=== PATIENT | male | born 1940 | race Caucasian/White ===

== ENCOUNTER 2019-08-06 09:36 | Emergency (ER) | payer MEDICARE, OTHER, SELFPAY ==
[2019-08-06 09:42] VITALS: BP 237/108; PULSE 57; RESP 20; TEMP 36.6; O2SAT 97
--- NOTE | 2019-08-06 09:45 | ED.ABDPAIN ---
HPI - Abdominal Pain General Chief Complaint: Abdominal Pain Stated Complaint: Constipation X7 Days Time Seen by Provider: 08/06/19 09:40 Source: patient Mode of arrival: Ambulatory Limitations: no limitations History of Present Illness HPI narrative: 79-year-old male Nonsmoker with history of hypertension presents with the chief complaint of little to no bowel movements for the past week or so. He has no symptoms whatsoever. He denies nausea, vomiting or diarrhea. He denies any abdominal pain, change in diet or change in medications. He denies travel Or exposure to ill persons. He had been trying to use MiraLax over the past few days which has been unsuccessful. He spoke with his primary care provider's office and was sent here for evaluation. MD complaint: other Onset (ago): day(s) Associated symptoms: constipation Treatments prior to arrival: other Related Data Previous Rx's Medication Instructions Recorded cephalexin [Keflex] 500 mg PO Q6H 7 Days #0 cap 08/04/16 Allergies Allergy/AdvReac Type Severity Reaction Status Date / Time No Known Allergies Allergy Uncoded 08/27/17 12:07 Review of Systems Constitutional Constitutional: Denies chills, Denies fatigue, Denies fever(s), Denies frequent falls, Denies lethargy and Denies weakness Eyes Eyes: Denies change in vision, Denies eye discharge, Denies irritation and Denies loss of vision ENT Ears, Nose, Mouth, and Throat: Denies change in voice, Denies dizziness, Denies neck pain, Denies sore throat and Denies throat swelling Cardiovascular Cardiovascular: Denies chest pain, Denies irregular heart rhythm, Denies lightheadedness, Denies palpitations, Denies dyspnea, Denies dyspnea on exertion and Denies orthopnea Respiratory Respiratory: Denies cough, Denies dyspnea, Denies dyspnea on exertion and Denies wheezing Gastrointestinal Gastrointestinal: Denies abdominal pain, Denies change in bowel habits, Reports constipation, Denies diarrhea, Denies nausea and Denies vomiting Genitourinary Genitourinary: Denies hematuria, Denies flank pain, Denies urinary incontinence and Denies urinary urgency Musculoskeletal Musculoskeletal: Denies back pain, Denies muscle weakness, Denies neck pain, Denies numbness and Denies tingling Integumentary/Breasts Skin/Breast: Denies pruritus, Denies erythema, Denies rash and Denies wounds Neurologic Neurologic: Denies behavioral changes, Denies confusion, Denies dizziness, Denies frequent falls, Denies loss of vision, Denies numbness, Denies tingling and Denies weakness Psychiatric Psychiatric: Denies anxiety, Denies behavioral changes, Denies confusion, Denies depression, Denies homicidal ideation and Denies suicidal ideation Endocrine Endocrine: Denies fatigue, Denies flushing and Denies palpitations Hematologic/Lymphatic Hematologic/Lymphatic: Denies easy bruising Allergic/Immunologic Allergic/Immunologic: Denies urticaria, Denies throat swelling and Denies wheezing Patient History Social History Smoking Status: Never smoker Exam Narrative Exam Narrative: Initial Vital Signs Initial Vital Signs: Vital Signs Temperature 97.9 F 08/06/19 09:42 Pulse Rate 57 L 08/06/19 09:42 Respiratory Rate 20 08/06/19 09:42 Blood Pressure 237/108 H 08/06/19 09:42 Pulse Oximetry 97 08/06/19 09:42 Course Orders Ordered: ED Orders 08/06/19 09:46 XR acute abdomen series Stat Vital Signs Vital signs: Vital Signs - 8 hr 08/06/19 09:42 08/06/19 10:50 Temperature 97.9 F Pulse Rate 57 L 48 L Respiratory Rate 20 18 Blood Pressure 237/108 H 177/80 H Pulse Oximetry 97 97 Discharge Plan Departure Patient Disposition: Home Clinical Impression: Constipation Qualifiers: Constipation type: unspecified constipation type Qualified Code(s): K59.00 - Constipation, unspecified Discharge Date/Time: 08/06/19 10:50 Instructions: DI for Constipation Activity Restrictions/Additional Instructions: *You have been diagnosed with [ abdominal pain due to constipation ] *What to do: *Take over the counter medications as directed: 1. Metamucil - bulk forming laxative adds fiber 2. Colace - softens your stool 3. Dulcolax Suppository - stimulates your bowels from the bottom *Follow up with your primary care provider in 2-3 days, call for appointment *Return to ER if you should have any new, worsening or concerning symptoms *Drink plenty of water and eat foods high in fiber *Try to be as active as possible, consider walking your dog daily Prescriptions: No Action cephalexin [Keflex] 500 MG capsule 500 mg PO Q6H 7 Days Qty: 0 RF: 0 Referrals: Kevin Smith MD [Primary Care Provider] - ED Sign-out Cosign ED Attending Cosignature Attestation: I was immediately available in the department for consultation. This documentation has been reviewed and I agree with assessment and plan. Supervised by Jase Dow DO
--- NOTE | 2019-08-06 09:46 | DI.RAD.S_ITS ---
PROCEDURE: XR ACUTE ABDOMEN SERIES INDICATIONS: decreased BM x7 days, sent by PCP TECHNIQUE: One view chest and two views of the abdomen were acquired. COMPARISON: None. FINDINGS: Surgical changes and devices: None. Chest: Lungs are clear. Heart size is normal. No pleural effusions. No pneumoperitoneum. Abdomen: Bowel gas pattern is nonobstructive. Fecal stasis throughout the colon is seen. No gross free air.. No suspicious calcifications. Visualized solid organ contours appear normal. Bones: No suspicious bony lesions. IMPRESSION: Mild to moderate constipation. No bowel obstruction no gross free air. No acute cardiopulmonary pathology. Dictated by: Kishore Sue M.D. on 08/06/2019 at 10:08 Approved by: Kishore Sue M.D. on 08/06/2019 at 10:11
[2019-08-06 10:50] VITALS: BP 177/80; PULSE 48; RESP 18; O2SAT 97
== END 2019-08-06 10:50 | disposition home or self-care (01) ==
PROVIDERS: Emergency Provider Emergency Medicine; Family Provider Family Medicine; PCP Family Medicine; Referring Provider Family Medicine
DX: K59.00 Constipation, unspecified (principal); R10.9 Unspecified abdominal pain; I10 Essential (primary) hypertension
CPT/HCPCS: 74022; 99283

== ENCOUNTER → 2021-02-07 10:13 | Outpatient (CLI) | payer MEDICARE, OTHER, SELFPAY ==
--- NOTE | 2021-02-07 | DI.RAD.S_ITS ---
PROCEDURE: XR HAND LT MIN 3V INDICATIONS: LEFT 5TH FINGER SWELLING TECHNIQUE: 3 views of the hand(s) acquired. COMPARISON: None. FINDINGS: Bones: No acute fractures or dislocations. 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 There are suggestion of bony erosion involving 2nd through 5th DIP joints and 3rd through 5th PIP joints most prominent involving ulnar aspect of 5th DIP joint. Carpal bones are normally aligned. No suspicious bony lesions. Soft tissues: Significant soft tissue swelling over medial aspect of 5th DIP joint is seen, no gross abnormal soft tissue calcifications. 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 No acute fracture or dislocation. Dictated by: Kishore Sue M.D. on 02/07/2021 at 11:34 Approved by: Kishore Sue M.D. on 02/07/2021 at 11:36
== END ==
PROVIDERS: PCP Family Medicine; Referring Provider Family Medicine; Visit Provider Family Medicine
DX: M79.89 Other specified soft tissue disorders (principal)
CPT/HCPCS: 73130

== ENCOUNTER 2022-06-19 10:52 | Emergency (ER) | payer MEDICARE, OTHER, SELFPAY ==
[2022-06-19 11:20] VITALS: TEMP 36.1; BMI 27.7
[2022-06-19 11:26] VITALS: BP 158/72; PULSE 56; RESP 19; TEMP 36.1; O2SAT 97; BMI 27.7
--- NOTE | 2022-06-19 11:36 | ED_ITS ---
HPI - Abdominal Pain General Chief Complaint: Abdominal Pain Stated Complaint: per pt possibe hernia, lower abd pain Time Seen by Provider: 06/19/22 11:36 Source: patient Mode of arrival: Family Vehicle History of Present Illness HPI narrative: The patient has not felt well for about 2 weeks. He has no chronic GI issues. His appetite is okay. He is no nausea vomiting. He has occasional loose BMs. He is no hematochezia. He has central, suprapubic discomfort. The pain does not radiate to his back. He has no nausea vomiting, no upper abdominal pain. He is no scrotal pain. He has no dysuria. He is urinary hesitancy. He denies a history of prostate disease. He has no fever chills. He is no rashes. Related Data Previous Rx's Medication Instructions Recorded cephalexin 500 mg capsule (Keflex) 500 mg PO Q6H 7 days #0 caps 08/04/16 ciprofloxacin HCl 250 mg tablet 250 mg PO BID #42 tabs 06/19/22 (Cipro) Allergies Allergy/AdvReac Type Severity Reaction Status Date / Time No Known Drug Allergies Allergy Verified 06/19/22 12:11 Review of Systems Constitutional Constitutional: Denies body ache(s), Denies chills, Denies fatigue, Denies fever(s) and Denies poor appetite ENT Ears, Nose, Mouth, and Throat: Denies vertigo and Denies dizziness Cardiovascular Cardiovascular: Denies chest pain, Denies rapid heart rate, Denies pedal edema and Denies dyspnea Respiratory Respiratory: Denies chest congestion, Denies cough and Denies dyspnea Gastrointestinal Gastrointestinal: Reports as per HPI Genitourinary Genitourinary: Reports as per HPI Musculoskeletal Musculoskeletal: Denies back pain Integumentary/Breasts Skin/Breast: Denies lesions and Denies rash Neurologic Neurologic: Denies confusion, Denies vertigo and Denies dizziness Psychiatric Psychiatric: Denies anxiety, Denies confusion, Denies hopelessness and Denies panic attacks Endocrine Endocrine: Denies fatigue Hematologic/Lymphatic On Anticoagulants: No Patient History Social History Smoking Status: Never smoker Smoking Status: Never smoker alcohol intake frequency: a few times a week Alcohol type: wine Substance Use Type: does not use Exam Initial Vital Signs Initial Vital Signs: Vital Signs Temperature 96.9 F L 02/01/23 11:20 Const General: cooperative, comfortable, well developed and well groomed [facility] Head: normocephalic and atraumatic Neck Neck: No JVD Resp Effort & Inspection: normal respiratory effort Auscultation: clear to auscultation bilaterally Cardio Rate: regular rate Rhythm: regular rhythm Heart Sounds: S1 normal, S2 normal, no click, no gallops and no murmurs GI Other: Mild suprapubic discomfort with palpation. No masses. No distension. No guarding or rebound. Bowel sounds are normal. Normal rectal tone. 3+ BPH with diffuse tenderness to the prostate. Other: No scrotal tenderness. Back/Spine/Pelvis Back: No CVA tenderness Course Course Course Narrative: Cipro was initiated in the ER for prostatitis. He is discharged on Cipro 250 b.i.d. for 3 weeks. Follow-up with PCM in perhaps urology consultation is advised. Orders Ordered: ED Orders 06/19/22 11:29 Complete Blood Count AUTO DIFF Stat Comprehensive Metabolic Panel Stat Lipase Stat 06/19/22 12:00 Urine Culture Stat Urine Microscopic Stat Discontinued Medications Ciprofloxacin (Ciprofloxacin 250 Mg Tablet) 250 mg PO NOW ONE Stop: 06/19/22 12:01 Last Admin: 06/19/22 12:10 Dose: 250 mg Documented By: NANY Vital Signs Vital signs: Vital Signs - 8 hr 06/19/22 11:20 06/19/22 11:26 06/19/22 12:11 Temperature 96.9 F L 96.9 F L Pulse Rate 56 L 52 L Respiratory Rate 19 Blood Pressure 158/72 H 155/70 H Pulse Oximetry 97 96 Oxygen Delivery Method Room Air Room Air MDM - Abdominal Pain Lab Data 06/19/22 11:29 06/19/22 11:29 Labs: Lab Results 06/19/22 06/19/22 06/19/22 Range/Units 11:29 11:29 12:00 WBC 19.9 H (4.5-11.0) X10^3/uL RBC 4.78 (4.5-5.9) X10^6/uL Hgb 13.9 (13.5-17.5) g/dL Hct 41.4 (41-53) % MCV 86.6 (80-100) fL MCH 29.1 (26-34) PG MCHC 33.6 (30-36) % RDW 14.5 (11.6-14.8) % Plt Count 282 (150-400) X10^3/uL Neut % (Auto) 83.8 H (50-75) % Lymph % (Auto) 5.9 L (25-40) % [place] % (Auto) 9.6 (3-14) % Eos % (Auto) 0.2 L (2-4) % Baso % (Auto) 0.5 (0-2) % Neut # (Auto) 64960 H (5000-1294) /uL Lymph # (Auto) 1200 (5081-4503) /uL [place] # (Auto) 1900 H (0-900) /uL Eos # (Auto) 0 (0-450) /uL Baso # (Auto) 100 (0-100) /uL Sodium 135 L (137-145) mmol/L Potassium 4.5 (3.4-5.1) mmol/L Chloride 101 (98-107) mmol/L Carbon Dioxide 24 (22-32) mmol/L BUN 30 H (9-20) mg/dL Creatinine 1.17 (0.66-1.25) mg/dL Estimated GFR > 60 (>60) mL/min BUN/Creatinine Ratio 25.6 H (6-22) Glucose 114 H (80-110) mg/dL Calcium 8.5 (8.4-10.2) mg/dL Total Bilirubin 1.8 H (0.2-1.3) mg/dL AST 27 (17-59) IU/L ALT 30 (<50) IU/L Alkaline Phosphatase 105 (38-126) U/L Total Protein 7.4 (6.3-8.2) g/dL Albumin 4.3 (3.5-5.0) g/dL Globulin 3.1 (1.7-4.1) g/dL Albumin/Globulin Ratio 1.4 (1.0-2.8) Lipase 40 (23-300) U/L Urine RBC None seen (0-5/HPF) Urine WBC 1-5/hpf (0-5/HPF) Ur Squamous Epith Cells 1-5 /hpf (0-5/HPF) Urine Bacteria Few (2-10) H (None) Urine Mucus 1+ H (Negative) Ur Culture Indicated? Specimen cultured Point of care testing: Urine Dip Bedside Urine Glucose Negative Bedside Urine Bilirubin - Negative Bedside Urine Ketone - Negative Urine Specific [place] 1.020 Bedside Urine Occult Blood +/- Bedside Urine pH 6.0 Bedside Urine Protein + 30 Bedside Urine Urobilinogen +/- 1mg Bedside Urine Nitrite - Negative Bedside Urine Leukocytes - Negative Esterase Discharge Plan Departure Patient Disposition: Home Clinical Impression: Acute prostatitis Instructions: DI for Acute Prostatitis Activity Restrictions/Additional Instructions: Drink plenty of water at all times. Cipro 250 mg 2 times daily as prescribed. Follow-up with your doctor in 3 weeks for recheck. Return here if you develop fever, or worsening symptoms. Prescriptions: New ciprofloxacin HCl [Cipro] 250 mg tablet 250 mg PO BID Qty: 42 0RF No Action cephalexin [Keflex] 500 MG capsule 500 mg PO Q6H 7 Days Qty: 0 0RF Referrals: Uvaldo Katz MD [Primary Care Provider] - Stand Alone Forms: Patient Portal/API
[2022-06-19 11:38] LABS: Add Manual Diff / Slide Review NO; Basophils Absolute Auto 100 /uL (0-100); Basophils Percent Auto 0.5 % (0-2); Eosinophils Absolute Auto 0 /uL (0-450); Eosinophils Percent Auto 0.2 % (2-4); Hematocrit 41.4 % (41-53); Hemoglobin 13.9 g/dL (13.5-17.5); Lymphocytes Absolute Auto 1200 /uL (1100-4500); Lymphocytes Percent Auto 5.9 % (25-40); Mean Corpuscular HGB Conc 33.6 % (30-36); Mean Corpuscular Hemoglobin 29.1 PG (26-34); Mean Corpuscular Volume 86.6 fL (80-100); Monocytes Absolute Auto 1900 /uL (0-900); Monocytes Percent Auto 9.6 % (3-14); Neutrophils Absolute Auto 16700 /uL (1500-7000); Neutrophils Percent Auto 83.8 % (50-75); Platelet Count 282 X10^3/uL (150-400); Red Blood Cell Count 4.78 X10^6/uL (4.5-5.9); Red Cell Distribution Width 14.5 % (11.6-14.8); White Blood Cell Count 19.9 X10^3/uL (4.5-11.0)
[2022-06-19 11:46] LABS: Alanine Aminotransferase 30 IU/L (<50); Albumin 4.3 g/dL (3.5-5.0); Albumin Globulin Ratio 1.4 (1.0-2.8); Alkaline Phosphatase 105 U/L (38-126); Aspartate Aminotransferase 27 IU/L (17-59); BUN Creatinine Ratio 25.6 (6-22); Bilirubin Total 1.8 mg/dL (0.2-1.3); Blood Urea Nitrogen 30 mg/dL (9-20); Calcium 8.5 mg/dL (8.4-10.2); Carbon Dioxide 24 mmol/L (22-32); Chloride 101 mmol/L (98-107); Estimated Glomerular Filt Rate > 60 mL/min (>60); Globulin 3.1 g/dL (1.7-4.1); Glucose 114 mg/dL (80-110); HEMOLYSIS < 15 (0-50); Lipase 40 U/L (23-300); Potassium 4.5 mmol/L (3.4-5.1); Sodium 135 mmol/L (137-145); Total Protein 7.4 g/dL (6.3-8.2)
[2022-06-19] MEDS: CIPROFLOXACIN 250 MG TABLET PO (12:10)
[2022-06-19 12:11] VITALS: BP 155/70; PULSE 52; O2SAT 96
[2022-06-19 12:15] LABS: Bacteria Urine Few (2-10); Culture Indicated Urine Specimen Cultured; Mucus Urine 1+ (Negative); RBC Urine None Seen (0-5/HPF); Squamous Epithelial Cell Urine 1-5 /HPF (0-5/HPF); WBC Urine 1-5/HPF (0-5/HPF)
== END 2022-06-19 12:55 | disposition home or self-care (01) ==
PROVIDERS: Emergency Provider Emergency Medicine; PCP Family Medicine
DX: N41.0 Acute prostatitis (principal)
CPT/HCPCS: 80053; 81003; 81015; 83690; 85025; 87086; 99283

== ENCOUNTER → 2022-07-29 14:02 | Outpatient (CLI) | payer MEDICARE, OTHER, SELFPAY ==
--- NOTE | 2022-07-29 | DI.US.S_ITS ---
PROCEDURE: US ABDOMEN LIMITED INDICATIONS: UNSPECIFIED ABDOMINAL HERNIA WITHOUT OBSTRUCTION OR GANGRENE TECHNIQUE: Real-time focused scanning was performed of the abdomen, with image documentation. COMPARISON: None. FINDINGS: Possible fat and bowel containing right inguinal hernia, with possible neck measuring 2.3 cm. IMPRESSION: Suspected fat and bowel containing right inguinal hernia. Correlation with physical examination may be helpful. Dictated by: Chandrakant Duval M.D. on 07/29/2022 at 17:45 Approved by: Chandrakant Duval M.D. on 07/29/2022 at 17:49
== END ==
PROVIDERS: PCP Family Medicine; Referring Provider Family Medicine; Visit Provider Family Medicine
DX: K46.9 Unspecified abdominal hernia without obstruction or gangrene (principal)
CPT/HCPCS: 76705

== ENCOUNTER 2022-08-20 09:40 | Day surgery (SDC) | payer MEDICARE, OTHER, SELFPAY ==
[2022-08-15 08:03] VITALS: BMI 26.4
[2022-08-20] VITALS (8 sets, daily range): BP systolic 159–189; BP diastolic 82–99; PULSE 69–169; RESP 10–20; TEMP 36.3–36.7; O2SAT 96–100; BMI 26.4
[2022-08-20] MEDS: LACTATED RINGERS 1,000 ML 42 ML IV ×2 (10:18→13:00)
--- NOTE | 2022-08-20 11:51 | PM.PREOP ---
Pre-operative Note Interval Note History & Physical reviewed/Exam performed by Physician: Yes Changes to H&P: No
[2022-08-20] MEDS: CEFAZOLIN 2 GM/100 ML PREMIX 100 ML IV (12:10)
--- NOTE | 2022-08-20 12:28 | SUR.OPER ---
Supine on padded OR bed, head on pillow, arms secured on padded arm boards at <90 degrees abduction, legs uncrossed, safety belt at thigh, tape over blanket over lower legs.
[2022-08-20] MEDS: BUPIVACAINE 0.5% (PF) 30 ML, EPINEPHrine 0.15 MG INJ (12:32)
--- NOTE | 2022-08-20 13:48 | PM.OP.1 ---
Operative Date/Time/Diagnoses Date of procedure: 08/20/22 Time of procedure: 13:48 Pre-op diagnosis: Bilateral inguinal hernia, left side is more symptomatic and based on discussion with Dr. Carver in office election staged for open surgery starting with left side was planned based on anesthetic concerns. Post-op diagnosis: same Procedure & Clinicians Procedure: Left open inguinal hernia repair Same procedure as scheduled: Yes Indications: Symptomatic left inguinal hernia Surgeon: Sarai Rodriguez Click Yes if Unassisted: Yes Anesthesia Type: General Operative Notes Findings: Pretty large indirect hernia sac Procedure in detail: Patient was taken to the operating room and placed supine on the operating room table. Bilateral SCDs were in place. Preoperative antibiotics administered. A time-out was performed. General endotracheal anesthesia was induced. The left inguinal area was marked in the preop area and the chad was checked the left area was prepped and draped in the usual fashion. Local anesthetic was infused to create an iliohypogastric block and an incision was made overlying the inguinal canal with 10. Blade scalpel after infusing additional local anesthetic in the area. The incision was carried down through the subcutaneous tissues using electrocautery. I encountered a bundle of exterior epigastric vessels which I tied with a 3-0 Vicryl tie and ligated. I then continued the incision with electrocautery down to the anterior oblique fascia. The fascia was grasped with hemostats elevated and entered sharply with Metzenbaum scissors. The scissors were used to clear the posterior tissue away and then open the muscles fascia to the external ring. The wheat [place] retractor was then placed and the cord structures were isolated with a Clif[place] drain. I then began to dissect the hernia sac from the cord structures the hernia sac was returned to the abdomen a few stay sutures of 2-0 Vicryl were used to gently close the internal ring and keep the hernia sac within the abdomen while the mesh was placed. The mesh was secured to Blanco's ligament and a running 3-0 Prolene was used along the inguinal ligament to secure the mesh. A slit was cut and the new internal ring was created around the cord the superior portion of the mesh was secured with interrupted 3-0 Vicryl sutures which were tied down very loosely through the muscle wall just to keep the mesh flat. The external oblique fascia was then closed with a running 2-0 Vicryl suture. The Chari's fascia was closed with interrupted 3-0 Vicryl. A few subcutaneous interrupted 3-0 Vicryl sutures were placed and the skin was closed with a running 4-0 Monocryl. It was dressed with Steri-Strips. Patient tolerated the procedure well and went in good condition to the postoperative care unit the remainder of the local anesthetic was infused around the area at the cessation of the case. Complications: none Post-operative Condition: stable Disposition: PACU
== END 2022-08-20 14:55 | disposition home or self-care (01) ==
PROVIDERS: PCP Family Medicine; Referring Provider Surgery; Visit Provider Surgery
PROC: (CPT 49505; principal; 2022-08-20 11:15)
DX: K40.90 Unilateral inguinal hernia, without obstruction or gangrene, not specified as recurrent (principal); K59.00 Constipation, unspecified
CPT/HCPCS: 49505; J0171; J0690; J1100; J2405; J2704; J3010

== ENCOUNTER 2022-11-22 14:13 | Inpatient (IN) | payer MEDICARE, OTHER, SELFPAY ==
[2022-11-22] VITALS (16 sets, daily range): BP systolic 104–140; BP diastolic 55–68; PULSE 60–70; RESP 16–45; TEMP 36.4–40.6; O2SAT 93–99; BMI 25.7
--- NOTE | 2022-11-22 14:38 | DI.RAD.S_ITS ---
PROCEDURE: XR CHEST 1V INDICATIONS: suspected sepsis TECHNIQUE: One view of the chest was acquired. COMPARISON: None. FINDINGS: Surgical changes and devices: None. Lungs and pleura: Lungs are clear. No pleural effusions or pneumothorax. Mediastinum: Mediastinal contours appear normal. Heart size is normal. Bones and chest wall: No suspicious bony lesions. Overlying soft tissues appear unremarkable. IMPRESSION: No acute cardiopulmonary disease. Dictated by: Martine Cintron M.D. on 11/22/2022 at 16:39 Approved by: Martine Cintron M.D. on 11/22/2022 at 16:39
--- NOTE | 2022-11-22 14:54 | ED.GENADULT ---
HPI - General Adult General Chief complaint: Fever Stated complaint: fever/High BP Time Seen by Provider: 11/22/22 14:25 Source: patient Mode of arrival: Ambulatory History of Present Illness HPI narrative: 82-year-old male nonsmoker presents with his in the chief complaint of increased lethargy and weakness over the past day or so. He normally self catheterization and lasted so last night. He is had fever and shaking chills. He is dizzy upon standing. He denies any chest pain or shortness of breath. He denies any vomiting but has been nauseated. He is generally weak. He normally can get around without difficulty in fact yesterday worked most of the day out in the [employer]. Over the night and into today he is had fever, shaking chills and profound weakness. Related Data Home Medications Medication Instructions Recorded Confirmed allopurinol 100 mg tablet 100 mg PO DAILY 07/31/22 11/22/22 atorvastatin 20 mg tablet 20 mg PO DAILY 07/31/22 11/22/22 metoprolol succinate 50 mg 50 mg PO DAILY 07/31/22 11/22/22 tablet,extended release 24 hr Previous Rx's Medication Instructions Recorded psyllium husk (with sugar) 3.4 1 tbsp PO BID #822 grams 08/20/22 gram/7 gram oral powder (Fiber (psyllium husk-sugar)) Allergies Allergy/AdvReac Type Severity Reaction Status Date / Time No Known Drug Allergies Allergy Verified 10/08/22 10:33 Review of Systems Review of Systems Narrative: GENERAL: See HPI HEENT: Denies sinus pain, ear pain, sore throat, difficulty swallowing, dizziness. RESPIRATORY: Denies dyspnea, cough, wheezing, hemoptysis, sputum. CARDIOVASCULAR: Denies chest pain, palpitations, orthopnea, edema, GASTROINTESTINAL: Denies nausea, vomiting, abdominal pain, diarrhea, constipation, melena. : See HPI MUSCULOSKELETAL: denies weakness, joint pain, or bony pain SKIN: Denies rash, skin lesions, or other NEUROLOGIC: Denies weakness, headache, numbness, change in speech, confusion, seizures, incoordination. PSYCHIATRIC: No concerning psychosocial issues. 12 point review of systems is negative except for those stated above Patient History Medical History Bowel obstruction HTN (hypertension) Surgical History History of skin surgery (03/27/19) History of skin surgery (04/13/19) Social History marital status: household members: spouse lives independently: Yes occupational status: previously employed Smoking Status: Never smoker alcohol intake: current substance use type: does not use Smoking Status: Never smoker alcohol intake frequency: a few times a week Alcohol type: wine Substance Use Type: does not use Exam Narrative Exam Narrative: GENERAL: [82] year old patient appears stated age. Well-developed patient, in mild distress. Generalized weakness, require some assistance getting out of the truck into the wheelchair HEAD: Atraumatic. Normocephalic. EYES: Pupils equal round and reactive. Extraocular motions intact. No scleral icterus. No injection or drainage. ENT: Nose without bleeding, purulent drainage. Throat without erythema, tonsillar hypertrophy or exudate. Airway patent. NECK: Trachea midline. Non tender CARDIOVASCULAR: Regular rate and rhythm without murmurs, gallops, or rubs. RESPIRATORY: Clear to auscultation. Breath sounds equal bilaterally. No wheezes, rales, or rhonchi. GASTROINTESTINAL: Abdomen soft, non-tender, nondistended. EXTREMITIES: No edema or joint tenderness. BACK: Nontender without deformity or crepitance. No flank tenderness. NEURO: AOx3. SKIN: No rash or erythema of visible areas Initial Vital Signs Initial Vital Signs: Vital Signs Temperature 100.9 F H 11/22/22 14:25 Pulse Rate 64 11/22/22 14:25 Respiratory Rate 16 11/22/22 14:25 Blood Pressure 104/57 L 11/22/22 14:25 Pulse Oximetry 95 11/22/22 14:25 Oxygen Delivery Method Room Air 11/22/22 14:25 Course Orders Ordered: ED Orders 11/22/22 14:38 XR chest 1V Stat 11/22/22 14:50 Complete Blood Count AUTO DIFF Stat Comprehensive Metabolic Panel Stat Lactate (Lactic Acid) Stat Lipase Stat PTT Partial Thromboplastin Chau Stat Procalcitonin Stat Prothrombin Time INR Stat 11/22/22 15:00 Blood Culture Stat 11/22/22 15:30 Urinalysis and Microscopic Stat Urine Culture Stat 11/22/22 15:49 Respiratory Panel (Film Array) Stat 11/22/22 15:50 EKG-12 Lead Stat Acetaminophen (Acetaminophen 325 Mg Tablet) 650 mg PO Q6H [facility] Last Admin: 11/22/22 19:37 Dose: 650 mg Documented By: SHERRI Hydrocodone Bitart/Acetaminophen (Hydrocodone/Acet 5/325 Tablet) 1 tab PO Q4H PRN PRN Reason: Pain, Moderate (4-6) Al Hydrox/Mg Hydrox/Simethicone (Mag Hydrox/Alum/Simeth 30 Ml Udc) 30 ml PO Q6HR PRN PRN Reason: Dyspepsia Allopurinol (Allopurinol 100 Mg Tablet) 100 mg PO DAILY [facility] Atorvastatin Calcium (Atorvastatin 20 Mg Tablet) 20 mg PO DAILY [facility] Enoxaparin Sodium (Enoxaparin 40 Mg/0.4 Ml Syringe) 40 mg SUBCUT DAILY [facility] Sodium Chloride (Normal Saline 0.9%) 1,000 mls @ 125 mls/hr IV CONT [facility] Last Admin: 11/22/22 19:37 Dose: 125 mls/hr Documented By: SHERRI Ceftriaxone Sodium 2,000 mg/ (Sodium Chloride) 100 mls @ 200 mls/hr IV Q24H [facility] Last Admin: 11/22/22 19:22 Dose: Not Given Documented By: SHERRI Magnesium Hydroxide (Magnesium Hydroxide 30 Ml Udc) 30 ml PO DAILY PRN PRN Reason: Constipation Naloxone HCl (Naloxone 0.4 Mg/Ml Vial) 0.2 mg IV Q2MIN PRN PRN Reason: Opiate Reversal Ondansetron HCl (Ondansetron 4 Mg/2 Ml Inj) 4 mg IV Q8HR PRN PRN Reason: Nausea And Vomiting Psyllium Hydrophilic Mucilloid (Psyllium Husk 1 Packet) 1 packet PO BID [facility] Discontinued Medications Acetaminophen (Acetaminophen 650 Mg Supp) 650 mg FL NOW ONE Stop: 11/22/22 14:34 Last Admin: 11/22/22 14:37 Dose: Not Given Documented By: URBANO Acetaminophen (Acetaminophen 325 Mg Tablet) 975 mg PO NOW ONE Stop: 11/22/22 14:34 Last Admin: 11/22/22 14:37 Dose: Not Given Documented By: URBANO Sodium Chloride (Normal Saline 0.9%) 1,000 mls @ 1,000 mls/hr IV BOLUS ONE Stop: 11/22/22 15:37 Last Infusion: 11/22/22 16:21 Dose: 0 mls/hr Documented By: Admin: 11/22/22 15:12 Dose: 1,000 mls/hr Documented By: RAFA Sodium Chloride (Normal Saline 0.9%) 2,585.49 mls @ 861.83 mls/hr 30 ml/kg infuse over 3 hr (2585.49 ml) IV NOW ONE Stop: 11/22/22 18:22 Last Admin: 11/22/22 16:13 Dose: 861.83 mls/hr Documented By: Ceftriaxone Sodium 2,000 mg/ (Sodium Chloride) 100 mls @ 200 mls/hr IV NOW ONE Stop: 11/22/22 15:24 Last Infusion: 11/22/22 16:58 Dose: 0 mls/hr Documented By: Admin: 11/22/22 16:13 Dose: 200 mls/hr Documented By: Ibuprofen (Ibuprofen 400 Mg Tablet) 800 mg PO NOW ONE Stop: 11/22/22 14:34 Last Admin: 11/22/22 14:37 Dose: Not Given Documented By: URBANO Ondansetron HCl (Ondansetron 4 Mg/2 Ml Inj) 4 mg IV NOW PRN PRN Reason: Nausea And Vomiting Ondansetron HCl (Ondansetron 4 Mg Odt) 4 mg SL NOW PRN PRN Reason: Nausea And Vomiting Vital Signs Vital signs: Vital Signs - 8 hr 11/22/22 14:25 11/22/22 14:42 11/22/22 14:42 Temperature 100.9 F H Pulse Rate 64 70 Respiratory Rate 16 21 Blood Pressure 104/57 L 140/68 Pulse Oximetry 95 95 Oxygen Delivery Method Room Air 11/22/22 15:00 11/22/22 15:00 11/22/22 15:30 Temperature Pulse Rate 65 Respiratory Rate 32 H Blood Pressure 117/63 112/68 Pulse Oximetry 96 Oxygen Delivery Method 11/22/22 15:30 11/22/22 15:54 11/22/22 16:00 Temperature 101.5 F H Pulse Rate 63 Respiratory Rate 22 Blood Pressure 125/57 L Pulse Oximetry 93 Oxygen Delivery Method 11/22/22 16:00 Temperature 101.1 F H Pulse Rate 67 Respiratory Rate 19 Blood Pressure Pulse Oximetry 97 Oxygen Delivery Method Medical Decision Making Lab Data 11/22/22 14:50 11/22/22 14:50 Labs: Lab Results 11/22/22 11/22/22 11/22/22 Range/Units 14:50 14:50 14:50 WBC 16.4 H (4.5-11.0) X10^3/uL RBC 4.32 L (4.5-5.9) X10^6/uL Hgb 12.5 L (13.5-17.5) g/dL Hct 37.3 L (41-53) % MCV 86.4 (80-100) fL MCH 28.9 (26-34) PG MCHC 33.4 (30-36) % RDW 15.0 H (11.6-14.8) % Plt Count 191 (150-400) X10^3/uL Neut % (Auto) 94.3 H (50-75) % Lymph % (Auto) 1.4 L (25-40) % [place] % (Auto) 3.9 (3-14) % Eos % (Auto) 0.0 L (2-4) % Baso % (Auto) 0.4 (0-2) % Neut # (Auto) 95073 H (8045-1456) /uL Lymph # (Auto) 200 L (3361-8422) /uL [place] # (Auto) 600 (0-900) /uL Eos # (Auto) 0 (0-450) /uL Baso # (Auto) 100 (0-100) /uL PT 13.1 H (10.1-12.7) SECONDS INR 1.1 (0.9-1.3) APTT 26 (26-36) SECONDS Sodium 136 L (137-145) mmol/L Potassium 3.4 (3.4-5.1) mmol/L Chloride 104 (98-107) mmol/L Carbon Dioxide 22 (22-32) mmol/L BUN 33 H (9-20) mg/dL Creatinine 1.17 (0.66-1.25) mg/dL Estimated GFR > 60 (>60) mL/min BUN/Creatinine Ratio 28.2 H (6-22) Glucose 128 H (80-110) mg/dL Lactate (0.7-2.1) mmol/L Calcium 8.3 L (8.4-10.2) mg/dL Total Bilirubin 1.1 (0.2-1.3) mg/dL AST 29 (17-59) IU/L ALT 28 (<50) IU/L Alkaline Phosphatase 116 (38-126) U/L Total Protein 6.6 (6.3-8.2) g/dL Albumin 3.8 (3.5-5.0) g/dL Globulin 2.8 (1.7-4.1) g/dL Albumin/Globulin Ratio 1.4 (1.0-2.8) Lipase 95 (23-300) U/L Procalcitonin 4.00 H (<0.5) ng/mL Urine Color Urine Appearance Urine pH (4.5-8.0) Ur Specific [place] (1.000-1.035) Urine Protein (Negative) Urine Glucose (UA) (Negative) g/dL Urine Ketones (NEGATIVE) Urine Occult Blood (Negative) Urine Nitrate (Negative) Urine Bilirubin (NEGATIVE) Urine Urobilinogen (0.2) E.U./dL Ur Leukocyte Esterase (NEGATIVE) Urine RBC (0-5/HPF) Urine WBC (0-5/HPF) Ur Squamous Epith Cells (0-5/HPF) Urine Bacteria (None) Ur Culture Indicated? Chlamy pneumoniae PCR (Not Detect) Adenovirus (PCR) (Not Detect) B. pertussis DNA (PCR) (Not Detecte) B.parapertussis DNA PCR (Not Detecte) Coronavirus OC43 (PCR) (Not Detect) Coronavirus HKU1 (PCR) (Not Detect) Coronavirus 229E (PCR) (Not Detect) SARS-CoV-2 (PCR) (Not Detecte) Coronavirus NL63 (PCR) (Not Detect) Human Metapneumovir PCR (Not Detect) Influenza Type A (PCR) (Not Detect) Influenza Type B (PCR) (Not Detect) M. pneumoniae (PCR) (Not Detect) Parainfluenza 1 (PCR) (Not Detect) Parainfluenza 2 (PCR) (Not Detect) Parainfluenza 3 (PCR) (Not Detect) Parainfluenza 4 (PCR) (Not Detect) RSV (PCR) (Not Detect) Entero/Rhino (PCR) (Not Detect) 11/22/22 11/22/22 11/22/22 Range/Units 14:50 15:30 15:49 WBC (4.5-11.0) X10^3/uL RBC (4.5-5.9) X10^6/uL Hgb (13.5-17.5) g/dL Hct (41-53) % MCV (80-100) fL MCH (26-34) PG MCHC (30-36) % RDW (11.6-14.8) % Plt Count (150-400) X10^3/uL Neut % (Auto) (50-75) % Lymph % (Auto) (25-40) % [place] % (Auto) (3-14) % Eos % (Auto) (2-4) % Baso % (Auto) (0-2) % Neut # (Auto) (3538-2772) /uL Lymph # (Auto) (7522-0552) /uL [place] # (Auto) (0-900) /uL Eos # (Auto) (0-450) /uL Baso # (Auto) (0-100) /uL PT (10.1-12.7) SECONDS INR (0.9-1.3) APTT (26-36) SECONDS Sodium (137-145) mmol/L Potassium (3.4-5.1) mmol/L Chloride (98-107) mmol/L Carbon Dioxide (22-32) mmol/L BUN (9-20) mg/dL Creatinine (0.66-1.25) mg/dL Estimated GFR (>60) mL/min BUN/Creatinine Ratio (6-22) Glucose (80-110) mg/dL Lactate 1.5 (0.7-2.1) mmol/L Calcium (8.4-10.2) mg/dL Total Bilirubin (0.2-1.3) mg/dL AST (17-59) IU/L ALT (<50) IU/L Alkaline Phosphatase (38-126) U/L Total Protein (6.3-8.2) g/dL Albumin (3.5-5.0) g/dL Globulin (1.7-4.1) g/dL Albumin/Globulin Ratio (1.0-2.8) Lipase (23-300) U/L Procalcitonin (<0.5) ng/mL Urine Color Yellow Urine Appearance Cloudy Urine pH 5.5 (4.5-8.0) Ur Specific [place] 1.020 (1.000-1.035) Urine Protein Trace H (Negative) Urine Glucose (UA) Negative (Negative) g/dL Urine Ketones Negative (NEGATIVE) Urine Occult Blood Trace-intact (Negative) Urine Nitrate Negative (Negative) Urine Bilirubin Negative (NEGATIVE) Urine Urobilinogen 0.2 (0.2) E.U./dL Ur Leukocyte Esterase 2+ H (NEGATIVE) Urine RBC None seen (0-5/HPF) Urine WBC >100/hpf H (0-5/HPF) Ur Squamous Epith Cells None seen (0-5/HPF) Urine Bacteria Many (>30) H (None) Ur Culture Indicated? Specimen cultured Chlamy pneumoniae PCR Not detected (Not Detect) Adenovirus (PCR) Not detected (Not Detect) B. pertussis DNA (PCR) Not detected (Not Detecte) B.parapertussis DNA PCR Not detected (Not Detecte) Coronavirus OC43 (PCR) Not detected (Not Detect) Coronavirus HKU1 (PCR) Not detected (Not Detect) Coronavirus 229E (PCR) Not detected (Not Detect) SARS-CoV-2 (PCR) Not detected (Not Detecte) Coronavirus NL63 (PCR) Not detected (Not Detect) Human Metapneumovir PCR Not detected (Not Detect) Influenza Type A (PCR) Not detected (Not Detect) Influenza Type B (PCR) Not detected (Not Detect) M. pneumoniae (PCR) Not detected (Not Detect) Parainfluenza 1 (PCR) Not detected (Not Detect) Parainfluenza 2 (PCR) Not detected (Not Detect) Parainfluenza 3 (PCR) Not detected (Not Detect) Parainfluenza 4 (PCR) Not detected (Not Detect) RSV (PCR) Not detected (Not Detect) Entero/Rhino (PCR) Not detected (Not Detect) Urine Dip Bedside Urine Glucose Negative Bedside Urine Bilirubin - Negative Bedside Urine Ketone - Negative Urine Specific [place] 1.020 Bedside Urine Occult Blood + Bedside Urine pH 6.0 Bedside Urine Protein +/- 15 Bedside Urine Urobilinogen - Negative Bedside Urine Nitrite - Negative Bedside Urine Leukocytes +++ 500 Esterase Point of care testing: Urine Dip Bedside Urine Glucose Negative Bedside Urine Bilirubin - Negative Bedside Urine Ketone - Negative Urine Specific [place] 1.020 Bedside Urine Occult Blood + Bedside Urine pH 6.0 Bedside Urine Protein +/- 15 Bedside Urine Urobilinogen - Negative Bedside Urine Nitrite - Negative Bedside Urine Leukocytes +++ 500 Esterase MDM Narrative Medical decision making narrative: 82-year-old male with history of self cathing presents with a rapid onset of generalized weakness, fever, shaking chills and generally feeling unwell. Yesterday he was active and performing duties at his home today he is so weak he requires assistance to get out of his truck. He meets sepsis criteria on arrival and labs were ordered including blood cultures and lactate, fluids ordered at 30 cc/kilogram of actual body weight and broad-spectrum antibiotics ordered with suspicion for urinary source. Upon receipt of labs he is found to have an elevated white blood cell count with a left shift and an elevated procalcitonin. Urine very convincing to be the source of infection. He responds well to fluids and vital signs normalized. Lactate is normal. Patient requires admission for ongoing treatment and stabilization of his condition. Dr. Craft contacted and is happy to receive patient on his service. Patient and family understand and agree with the diagnosis and plan Discharge Plan Departure Patient Disposition: Admitted As Inpatient Clinical Impression: Acute UTI, Sepsis Admit Date/Time: 11/22/22 16:21 Admit Provider: Parag Craft
[2022-11-22] MEDS: SODIUM CHLORIDE 0.9% 1,000 ML 1000 ML IV (15:12)
[2022-11-22 15:42] LABS: INR 1.1 (0.9-1.3); Prothrombin Time 13.1 SECONDS (10.1-12.7)
[2022-11-22 15:44] LABS: PTT Partial Thromboplastin Tim 26 SECONDS (26-36)
[2022-11-22 15:45] LABS: Add Manual Diff / Slide Review NO; Basophils Absolute Auto 100 /uL (0-100); Basophils Percent Auto 0.4 % (0-2); Eosinophils Absolute Auto 0 /uL (0-450); Hematocrit 37.3 % (41-53); Hemoglobin 12.5 g/dL (13.5-17.5); Lymphocytes Absolute Auto 200 /uL (1100-4500); Lymphocytes Percent Auto 1.4 % (25-40); Mean Corpuscular HGB Conc 33.4 % (30-36); Mean Corpuscular Hemoglobin 28.9 PG (26-34); Mean Corpuscular Volume 86.4 fL (80-100); Monocytes Absolute Auto 600 /uL (0-900); Monocytes Percent Auto 3.9 % (3-14); Neutrophils Absolute Auto 15500 /uL (1500-7000); Neutrophils Percent Auto 94.3 % (50-75); Platelet Count 191 X10^3/uL (150-400); Red Blood Cell Count 4.32 X10^6/uL (4.5-5.9); White Blood Cell Count 16.4 X10^3/uL (4.5-11.0)
[2022-11-22 15:46] LABS: Lactate (Lactic Acid) 1.5 mmol/L (0.7-2.1)
[2022-11-22 15:47] LABS: Alanine Aminotransferase 28 IU/L (<50); Albumin 3.8 g/dL (3.5-5.0); Albumin Globulin Ratio 1.4 (1.0-2.8); Alkaline Phosphatase 116 U/L (38-126); Aspartate Aminotransferase 29 IU/L (17-59); BUN Creatinine Ratio 28.2 (6-22); Bilirubin Total 1.1 mg/dL (0.2-1.3); Blood Urea Nitrogen 33 mg/dL (9-20); Calcium 8.3 mg/dL (8.4-10.2); Carbon Dioxide 22 mmol/L (22-32); Chloride 104 mmol/L (98-107); Estimated Glomerular Filt Rate > 60 mL/min (>60); Globulin 2.8 g/dL (1.7-4.1); Glucose 128 mg/dL (80-110); HEMOLYSIS < 15 (0-50); Lipase 95 U/L (23-300); Potassium 3.4 mmol/L (3.4-5.1); Sodium 136 mmol/L (137-145); Total Protein 6.6 g/dL (6.3-8.2)
--- NOTE | 2022-11-22 15:57 | PC.NURSE ---
Pt and spouse report extended period of malaise, fatigue, and weakness since prostate surgery a few months ago, exact date unknown. Pt is oriented but experiencing difficulty finding words. No other neuro symptoms or focal deficit noted. Pt reported that he has been cathing himself since the procedure but then also states my urethra opened up and he has been wearing a brief for incontinence. States he cathed himself last night. 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 Waters catheter inserted with 400 ml output.
[2022-11-22] MEDS: SODIUM CHLORIDE 0.9% 2,585.49 ML 861.83 ML IV (16:13)
[2022-11-22] MEDS: cefTRIAXone 2,000 MG in SODIUM CHLORIDE 0.9% 100 ML 200 MG IV (16:13)
[2022-11-22 16:21] LABS: Appearance Urine UA CLOUDY; Bilirubin Urine UA NEGATIVE (NEGATIVE); Color Urine UA YELLOW; Glucose Urine UA NEGATIVE (Negative); Ketones Urine UA NEGATIVE (NEGATIVE); Leukocyte Esterase Urine UA 2+ (NEGATIVE); Nitrite Urine UA NEGATIVE (Negative); Occult Blood Urine UA TRACE-INTACT (Negative); Protein Urine UA TRACE (Negative); Urobilinogen Urine UA 0.2 E.U./dL (0.2); pH Urine UA 5.5 (4.5-8.0)
[2022-11-22 16:33] LABS: RBC Urine None Seen (0-5/HPF)
[2022-11-22 16:34] LABS: Bacteria Urine Many (>30); Culture Indicated Urine Specimen Cultured; Squamous Epithelial Cell Urine None Seen (0-5/HPF); WBC Urine >100/HPF (0-5/HPF)
--- NOTE | 2022-11-22 17:00 | PC.NURSE ---
Called safe handoff report to GARCIA Larson. Pt A&Ox4 on transfer, at bedside.
[2022-11-22 17:04] LABS: Adenovirus Not Detected (Not Detect); B. parapertussis Not Detected (Not Detecte); Bordetella pertussis Not Detected (Not Detecte); Chlamydophila pneumoniae Not Detected (Not Detect); Coronavirus 229E Not Detected (Not Detect); Coronavirus HKU1 Not Detected (Not Detect); Coronavirus NL 63 Not Detected (Not Detect); Coronavirus OC43 Not Detected (Not Detect); Human Metapneumovirus Not Detected (Not Detect); Human Rhinovirus/Enterovirus Not Detected (Not Detect); Influenza A Not Detected (Not Detect); Influenza B Not Detected (Not Detect); Mycoplasma pneumoniae Not Detected (Not Detect); Parainfluenza Virus 1 Not Detected (Not Detect); Parainfluenza Virus 2 Not Detected (Not Detect); Parainfluenza Virus 3 Not Detected (Not Detect); Parainfluenza Virus 4 Not Detected (Not Detect); Respiratory Syncytial Virus Not Detected (Not Detect); SARS- CoV-2 Not Detected (Not Detecte)
--- NOTE | 2022-11-22 17:04 | PC.NURSE ---
MAR shows 3585 ml normal saline is being administered (due to duplicate orders and inability to edit infused med in MAR) but only 2585 is being given to patient,
--- NOTE | 2022-11-22 18:49 | P.HP_ITS ---
History of Present Illness History of Present Illness Date Patient Seen: 11/22/22 Time Patient Seen: 18:50 Date of Onset of Symptoms: 11/20/22 Chief complaint: fever/High BP Narrative: Patient an 82-year-old male overall healthy except for his bladder dysfunction who presents with an unknown period of time of not feeling well. Which culmi nated in patient being brought to the hospital today with fever and decrease arousal. Apparently last night called and felt like he was not waking up but no treatment was done. He is not had any burning with urination fevers or other chills until today. Fever of 104. Not mentating as well. Just not feeling well. Week. Really no other symptoms. At a slight cough which is also had and really had not thought much of it. Patient apparently had been having difficulty with his bladder over the last month. He was scheduled to have some type of procedure with his urologist in 2 weeks. He apparently has not done well since he had his surgery for his inguinal. Had his which is scheduled later this month. Has had trouble urinating since that time. Apparently he was placed on Flomax without much improvement. There was a question whether he would did not have an infection in the past but not sure. Had persistent problems and then was started on t.i.d. catheterization schedule. Self cathing. Over time as he was catching he started having urinary leakage and quit casting all but 1 time. He has noticed some back pain recently. Bilateral. Apparently was getting 3-400 cc up to 500 cc once a day. Talked to his urologist who never called him back and he is just continued on the schedule. No other significant changes. History is obtained from patient who feels a little fuzzy in his mentation [facility] Medical History Bowel obstruction HTN (hypertension) Surgical History History of skin surgery (03/27/19) History of skin surgery (04/13/19) Social History marital status: household members: spouse lives independently: Yes occupational status: previously employed Smoking Status: Never smoker alcohol intake: current substance use type: does not use Meds Home Medications and Allergies Home Medications Medication Instructions Recorded Confirmed Type allopurinol 100 mg tablet 100 mg PO DAILY 07/31/22 11/22/22 History atorvastatin 20 mg tablet 20 mg PO DAILY 07/31/22 11/22/22 History metoprolol succinate 50 mg 50 mg PO DAILY 07/31/22 11/22/22 History tablet,extended release 24 hr psyllium husk (with sugar) 3.4 1 tbsp PO BID #822 grams 08/20/22 11/22/22 Rx gram/7 gram oral powder (Fiber (psyllium husk-sugar)) Allergies Allergy/AdvReac Type Severity Reaction Status Date / Time No Known Drug Allergies Allergy Verified 10/08/22 10:33 Review of Systems Review of Systems Narrative: See history and physical Exam Vital Signs (past 8 hours): - 11/22/22 14:25 11/22/22 14:42 11/22/22 14:42 Temperature 100.9 F H Pulse Rate 64 70 Respiratory Rate 16 21 Blood Pressure 104/57 L 140/68 Pulse Oximetry 95 95 Oxygen Delivery Method Room Air 11/22/22 15:00 11/22/22 15:00 11/22/22 15:30 Temperature Pulse Rate 65 Respiratory Rate 32 H Blood Pressure 117/63 112/68 Pulse Oximetry 96 Oxygen Delivery Method 11/22/22 15:30 11/22/22 15:54 11/22/22 16:00 Temperature 101.5 F H Pulse Rate 63 Respiratory Rate 22 Blood Pressure 125/57 L Pulse Oximetry 93 Oxygen Delivery Method 11/22/22 16:00 11/22/22 16:30 11/22/22 16:30 Temperature 101.1 F H 100.6 F H Pulse Rate 67 69 Respiratory Rate 19 23 Blood Pressure 118/56 L Pulse Oximetry 97 98 Oxygen Delivery Method 11/22/22 17:00 11/22/22 17:01 11/22/22 17:01 Temperature 99.9 F H 100.0 F H Pulse Rate 68 68 Respiratory Rate 25 H 19 Blood Pressure 129/61 Pulse Oximetry 97 98 Oxygen Delivery Method 11/22/22 17:41 Temperature 97.5 F L Pulse Rate 60 Respiratory Rate 16 Blood Pressure 136/64 Pulse Oximetry 99 Oxygen Delivery Method Oxygen Delivery Method Room Air Narrative Exam Narrative: Alert elderly male alert but fatigued in appearance in no acute distress HEENT exam is unremarkable mucous membranes mildly dry neck supple without adenopathy lungs are clear heart is regular rate and rhythm abdomen is soft positive bowel sounds nontender does have a little bit of flank tenderness. Extremities without cyanosis clubbing edema. Neurologic exam shows he is alert and interactive although fatigued seems to be answering questions although he is slow to do so. Nonfocal otherwise Objective Labs 11/22/22 14:50 11/22/22 14:50 Labs: Laboratory Results - last 24 hr 11/22/22 11/22/22 11/22/22 14:50 14:50 14:50 WBC 16.4 H RBC 4.32 L Hgb 12.5 L Hct 37.3 L MCV 86.4 MCH 28.9 MCHC 33.4 RDW 15.0 H Plt Count 191 Neut % (Auto) 94.3 H Lymph % (Auto) 1.4 L Campbell % (Auto) 3.9 Eos % (Auto) 0.0 L Baso % (Auto) 0.4 Neut # (Auto) 14003 H Lymph # (Auto) 200 L Campbell # (Auto) 600 Eos # (Auto) 0 Baso # (Auto) 100 PT 13.1 H INR 1.1 APTT 26 Sodium 136 L Potassium 3.4 Chloride 104 Carbon Dioxide 22 BUN 33 H Creatinine 1.17 Estimated GFR > 60 BUN/Creatinine Ratio 28.2 H Glucose 128 H Lactate Calcium 8.3 L Total Bilirubin 1.1 AST 29 ALT 28 Alkaline Phosphatase 116 Total Protein 6.6 Albumin 3.8 Globulin 2.8 Albumin/Globulin Ratio 1.4 Lipase 95 Procalcitonin 4.00 H Urine Color Urine Appearance Urine pH Ur Specific [place] Urine Protein Urine Glucose (UA) Urine Ketones Urine Occult Blood Urine Nitrate Urine Bilirubin Urine Urobilinogen Ur Leukocyte Esterase Urine RBC Urine WBC Ur Squamous Epith Cells Urine Bacteria Ur Culture Indicated? Chlamy pneumoniae PCR Adenovirus (PCR) B. pertussis DNA (PCR) B.parapertussis DNA PCR Coronavirus OC43 (PCR) Coronavirus HKU1 (PCR) Coronavirus 229E (PCR) SARS-CoV-2 (PCR) Coronavirus NL63 (PCR) Human Metapneumovir PCR Influenza Type A (PCR) Influenza Type B (PCR) M. pneumoniae (PCR) Parainfluenza 1 (PCR) Parainfluenza 2 (PCR) Parainfluenza 3 (PCR) Parainfluenza 4 (PCR) RSV (PCR) Entero/Rhino (PCR) 11/22/22 11/22/22 11/22/22 14:50 15:30 15:49 WBC RBC Hgb Hct MCV MCH MCHC RDW Plt Count Neut % (Auto) Lymph % (Auto) [place] % (Auto) Eos % (Auto) Baso % (Auto) Neut # (Auto) Lymph # (Auto) [place] # (Auto) Eos # (Auto) Baso # (Auto) PT INR APTT Sodium Potassium Chloride Carbon Dioxide BUN Creatinine Estimated GFR BUN/Creatinine Ratio Glucose Lactate 1.5 Calcium Total Bilirubin AST ALT Alkaline Phosphatase Total Protein Albumin Globulin Albumin/Globulin Ratio Lipase Procalcitonin Urine Color Yellow Urine Appearance Cloudy Urine pH 5.5 Ur Specific [place] 1.020 Urine Protein Trace H Urine Glucose (UA) Negative Urine Ketones Negative Urine Occult Blood Trace-intact Urine Nitrate Negative Urine Bilirubin Negative Urine Urobilinogen 0.2 Ur Leukocyte Esterase 2+ H Urine RBC None seen Urine WBC >100/hpf H Ur Squamous Epith Cells None seen Urine Bacteria Many (>30) H Ur Culture Indicated? Specimen cultured Chlamy pneumoniae PCR Not detected Adenovirus (PCR) Not detected B. pertussis DNA (PCR) Not detected B.parapertussis DNA PCR Not detected Coronavirus OC43 (PCR) Not detected Coronavirus HKU1 (PCR) Not detected Coronavirus 229E (PCR) Not detected SARS-CoV-2 (PCR) Not detected Coronavirus NL63 (PCR) Not detected Human Metapneumovir PCR Not detected Influenza Type A (PCR) Not detected Influenza Type B (PCR) Not detected M. pneumoniae (PCR) Not detected Parainfluenza 1 (PCR) Not detected Parainfluenza 2 (PCR) Not detected Parainfluenza 3 (PCR) Not detected Parainfluenza 4 (PCR) Not detected RSV (PCR) Not detected Entero/Rhino (PCR) Not detected Assessment & Plan Assessment & Plan narrative: Sepsis syndrome with hypovolemia and positive labs. Patient is clearly ill and is at risk for significant issues including if not treated. Certainly can not go home. Responded to fluid resuscitation. Blood pressure seems better. At this point will continue hydration a little less aggressively in this 82-year-old male who seems to now be in a better position after his presentation to the emergency room. No pressors required. Recheck procalcitonin a.m. Will hold his blood pressure medicines and follow and recheck in a.m.. Flank pain patient with history of what appears to be urinary incontinence. Catheter now. Probably will resolve issue. Flank pain med have been from slow onset pyelonephritis but will obtain ultrasound to make sure stable. Certainly if obstructed need to now. My guess is that he was not adequately draining his bladder with his self catheterization and created an issue with the infection. Pyelonephritis with elevated white count and sepsis syndrome. On Rocephin. Clinically seems better. Will follow 5 over curve recheck CBC and procalcitonin a.m.. Follow. Cultures will should be growing soon and we will follow from there. Metabolic encephalopathy. I suspect this is probably from his infection. Do not know his baseline but overall he is pretty good will see what says tomorrow and follow-up with his usual doctor. History of urinary obstruction. I do not think that he was doing well with in termittent catheterization. Probably be better off with permanent catheterization until procedure. But will see how things go. Given his history it sounds as if he was to had overflow incontinence and it is just not clear exactly how well he was doing with the self catheterization. But that put him at risk risk heart infection. Will see what the ultrasound shows and follow from there. Hypertension. Will hold current medication and follow. Hyperlipidemia. Continue usual med Gout. Continue allopurinol. GI prophylaxis not needed at this time will follow closely. Will hold diet today but should be able to start further tomorro. Full liquids tonight. Code status no code. Patient very clear on this. DVT prophylaxis Lovenox. Disposition. Patient clearly ill and will really depend on how quickly he turns around. But at least will be in probably 2-3 more days. Will see how things go. Patient understands questions answered. Quality VTE Deep Vein Thrombosis/Pulmonary Embolism Present on Admission: No
[2022-11-22] MEDS: SODIUM CHLORIDE 0.9% 1,000 ML 125 ML IV (19:37)
[2022-11-22] MEDS: ACETAMINOPHEN 325 MG TABLET 650 MG PO (19:37)
--- NOTE | 2022-11-22 19:42 | PC.NURSE ---
1713--rec'd pt from ED via stretcher; pt able to stand and move to bed; at bedside; pt with mild short term confusion; understands why he is here, but thinks he has been here since yesterday; stein with yellow urine with sediments; pt is hard of hearing but does not want his to bring his hearing aids; he is able to communicate effectively; he denies complaints of pain
--- NOTE | 2022-11-22 19:59 | PC.NURSE ---
Addendum entered by June Mitchell R.N. 11/22/22 23:08: 2300- Temperature is down to 101.5. Patient has better mentation and states he feels a little better now. Will monitor. Addendum entered by June Mitchell R.N. 11/22/22 20:28: 2020- Dr. Russell notified of Tmax of 105.1. Order received. Original Note: 1745- Patient is restless and no mentating well. Patient unable to follow direction at this time. Temp is 104.9 core. Medicated with tylenol po per order. Packed in ice to attempt to bring temperature down. Will monitor closely.
[2022-11-22] MEDS: KETOROLAC 30 MG/ML VIAL IV (20:24)
[2022-11-22] MEDS: PIPERACILLIN/TAZO 4.5 GM in SODIUM CHLORIDE 0.9% 100 ML IV (21:23)
[2022-11-22 21:36] LABS: MRSA (Nasal) PCR Not Detected (Not Detect)
[2022-11-23] VITALS (59 sets, daily range): BP systolic 74–121; BP diastolic 47–73; PULSE 45–92; RESP 9–40; TEMP 36.8–38.9; O2SAT 91–100
[2022-11-23] MEDS: ACETAMINOPHEN 325 MG TABLET 650 MG PO ×4 (00:17→19:10)
[2022-11-23] MEDS: SODIUM CHLORIDE 0.9% 1,000 ML 125 ML IV (03:35)
[2022-11-23] MEDS: PIPERACILLIN/TAZO 4.5 GM in SODIUM CHLORIDE 0.9% 100 ML IV (04:47)
[2022-11-23 05:19] LABS: Acinetobacter calcoa-baumannii Not Detected (Not Detect); Bacteroides fragilis Not Detected (Not Detect); CTX-M Resistance Not Detected (Not Detect); Candida albicans Not Detected (Not Detect); Candida auris Not Detected (Not Detect); Candida glabrata Not Detected (Not Detect); Candida krusei Not Detected (Not Detect); Candida parapsilosis Not Detected (Not Detect); Candida tropicalis Not Detected (Not Detect); Cryptococcus neoformans/gatti Not Detected (Not Detect); Enterobacter cloacae complex Not Detected (Not Detect); Enterobacterales DETECTED (Not Detect); Enterococcus faecalis Not Detected (Not Detect); Enterococcus faecium Not Detected (Not Detect); Haemophilus influenzae Not Detected (Not Detect); IMP Resistance Not Detected (Not Detect); KPC Resistance Not Detected (Not Detect); Klebsiella aerogenes Not Detected (Not Detect); Listeria monocytogenes Not Detected (Not Detect); NDM Resistance Not Detected (Not Detect); Neisseria meningitidis Not Detected (Not Detect); OXA-48-like Resistance Not Detected (Not Detect); Proteus species Not Detected (Not Detect); Pseudomonas aeruginosa Not Detected (Not Detect); Salmonella species Not Detected (Not Detect); Serratia marcescens Not Detected (Not Detect); Staphylococcus epidermidis Not Detected (Not Detect); Staphylococcus lugdunensis Not Detected (Not Detect); Staphylococcus species Not Detected (Not Detect); Stenotrophomonas maltophilia Not Detected (Not Detect); Streptococcus agalactiae (Gr B Not Detected (Not Detect); Streptococcus pneumonia Not Detected (Not Detect); Streptococcus pyogenes (Gr A) Not Detected (Not Detect); Streptococcus species Not Detected (Not Detect); VIM Resistance Not Detected (Not Detect); mcr-1 Resistance Not Detected (Not Detect)
[2022-11-23 07:00] LABS: Alanine Aminotransferase 25 IU/L (<50); Albumin 2.8 g/dL (3.5-5.0); Albumin Globulin Ratio 1.2 (1.0-2.8); Alkaline Phosphatase 79 U/L (38-126); Aspartate Aminotransferase 30 IU/L (17-59); BUN Creatinine Ratio 26.2 (6-22); Bilirubin Total 0.7 mg/dL (0.2-1.3); Blood Urea Nitrogen 33 mg/dL (9-20); Calcium 7.2 mg/dL (8.4-10.2); Carbon Dioxide 21 mmol/L (22-32); Chloride 107 mmol/L (98-107); Estimated Glomerular Filt Rate 58 mL/min (>60); Globulin 2.4 g/dL (1.7-4.1); Glucose 105 mg/dL (80-110); HEMOLYSIS < 15 (0-50); Potassium 3.6 mmol/L (3.4-5.1); Sodium 136 mmol/L (137-145); Total Protein 5.2 g/dL (6.3-8.2)
[2022-11-23 07:17] LABS: Procalcitonin 7.88 ng/mL (<0.5)
[2022-11-23 08:25] LABS: Add Manual Diff / Slide Review NO; Basophils Absolute Auto 0 /uL (0-100); Basophils Percent Auto 0.2 % (0-2); Eosinophils Absolute Auto 0 /uL (0-450); Hematocrit 30.9 % (41-53); Hemoglobin 10.6 g/dL (13.5-17.5); Lymphocytes Absolute Auto 300 /uL (1100-4500); Lymphocytes Percent Auto 2.8 % (25-40); Mean Corpuscular HGB Conc 34.3 % (30-36); Mean Corpuscular Hemoglobin 29.5 PG (26-34); Monocytes Absolute Auto 500 /uL (0-900); Monocytes Percent Auto 4.8 % (3-14); Neutrophils Absolute Auto 10100 /uL (1500-7000); Neutrophils Percent Auto 92.2 % (50-75); Platelet Count 146 X10^3/uL (150-400); Red Blood Cell Count 3.59 X10^6/uL (4.5-5.9); Red Cell Distribution Width 15.4 % (11.6-14.8)
[2022-11-23] MEDS: SODIUM CHLORIDE 0.9% 500 ML 1000 ML IV (09:26)
[2022-11-23] MEDS: ATORVASTATIN 20 MG TABLET PO (09:36)
[2022-11-23] MEDS: allopurinoL 100 MG TABLET PO (09:36)
[2022-11-23] MEDS: PSYLLIUM HUSK 1 PACKET PO ×2 (09:37→20:53)
[2022-11-23] MEDS: ENOXAPARIN 40 MG/0.4 ML SYRINGE SUBCUT (09:37)
--- NOTE | 2022-11-23 09:48 | P.PN_ITS ---
Subjective Subjective Date Patient Seen: 11/23/22 Time Patient Seen: 09:28 Interval history: Patient spiked a fever to 105+ last evening. At that point antibiotic coverage was broadened to cover more resistant g negatives including Pseudomonas potentially. This morning he is become hypotensive with blood pressure in the 70s and 80s systolic. Blood cultures are growing E coli without sensitivities so far White blood cell count normalized this morning but creatinine has bumped Patient was very much out of it from mental status standpoint when his fever was so high but this morning is much better (in that regard) despite the hypotension. He still somewhat slow to respond but seems to be mentating fairly well. There is some gaps in his memory about the last 24-36 hours Exam Vital Signs (past 8 hours): - 11/23/22 03:38 11/23/22 07:43 11/23/22 07:00 Temperature 101.5 F H 101.1 F H 101.5 F H Pulse Rate 92 H 58 L Respiratory Rate 18 21 Blood Pressure 114/57 L Pulse Oximetry 94 94 Oxygen Flow Rate 11/23/22 07:30 11/23/22 07:36 11/23/22 07:36 Temperature 101.1 F H 101.1 F H Pulse Rate 55 L 56 L Respiratory Rate 21 24 Blood Pressure 110/54 L Pulse Oximetry 94 95 Oxygen Flow Rate 11/23/22 07:54 11/23/22 07:54 11/23/22 07:55 Temperature 100.9 F H 100.9 F H Pulse Rate 54 L 53 L Respiratory Rate 21 21 Blood Pressure 86/50 L Pulse Oximetry 91 94 Oxygen Flow Rate 11/23/22 07:55 11/23/22 07:57 11/23/22 07:57 Temperature 100.9 F H Pulse Rate 54 L Respiratory Rate 36 H Blood Pressure 87/47 L 87/49 L Pulse Oximetry 97 Oxygen Flow Rate 11/23/22 07:58 11/23/22 07:58 11/23/22 08:00 Temperature 100.9 F H Pulse Rate 54 L Respiratory Rate 22 Blood Pressure 94/54 L 95/52 L Pulse Oximetry 97 Oxygen Flow Rate 11/23/22 08:00 11/23/22 08:00 11/23/22 08:15 Temperature 100.9 F H 100.9 F H 100.8 F H Pulse Rate 53 L 54 L Respiratory Rate 21 21 Blood Pressure 94/54 L Pulse Oximetry 96 92 Oxygen Flow Rate 0 11/23/22 08:30 11/23/22 08:55 11/23/22 08:55 Temperature 100.8 F H 100.6 F H Pulse Rate 52 L 55 L Respiratory Rate 21 21 Blood Pressure 74/49 L Pulse Oximetry 94 96 Oxygen Flow Rate 11/23/22 09:00 11/23/22 09:00 Temperature 100.4 F H Pulse Rate 53 L Respiratory Rate 23 Blood Pressure 86/48 L Pulse Oximetry 96 Oxygen Flow Rate Oxygen Delivery Method Room Air Oxygen Flow Rate 0 Narrative Exam Narrative: HEENT-unremarkable Lungs-clear with good breath sounds Heart-regular rate and rhythm Abdomen-benign Extremities-trace edema at the ankles bilaterally Objective Labs 11/23/22 08:18 11/23/22 06:25 Labs: Laboratory Results - last 24 hr 11/22/22 11/22/22 11/22/22 14:50 14:50 14:50 WBC 16.4 H RBC 4.32 L Hgb 12.5 L Hct 37.3 L MCV 86.4 MCH 28.9 MCHC 33.4 RDW 15.0 H Plt Count 191 Neut % (Auto) 94.3 H Lymph % (Auto) 1.4 L [place] % (Auto) 3.9 Eos % (Auto) 0.0 L Baso % (Auto) 0.4 Neut # (Auto) 09090 H Lymph # (Auto) 200 L [place] # (Auto) 600 Eos # (Auto) 0 Baso # (Auto) 100 PT 13.1 H INR 1.1 APTT 26 Sodium 136 L Potassium 3.4 Chloride 104 Carbon Dioxide 22 BUN 33 H Creatinine 1.17 Estimated GFR > 60 BUN/Creatinine Ratio 28.2 H Glucose 128 H Lactate Calcium 8.3 L Total Bilirubin 1.1 AST 29 ALT 28 Alkaline Phosphatase 116 Total Protein 6.6 Albumin 3.8 Globulin 2.8 Albumin/Globulin Ratio 1.4 Lipase 95 Procalcitonin 4.00 H Urine Color Urine Appearance Urine pH Ur Specific [place] Urine Protein Urine Glucose (UA) Urine Ketones Urine Occult Blood Urine Nitrate Urine Bilirubin Urine Urobilinogen Ur Leukocyte Esterase Urine RBC Urine WBC Ur Squamous Epith Cells Urine Bacteria Ur Culture Indicated? Nasal Screen MRSA (PCR) A.calcoaceticus-baumannii cmplx PCR Chlamy pneumoniae PCR Adenovirus (PCR) Bacteroides fragilis B. pertussis DNA (PCR) B.parapertussis DNA PCR Nikki albicans (PCR) Nikki auris (PCR) C. glabrata (PCR) C. krusei (PCR) C. parapsilosis (PCR) C. tropicalis (PCR) Coronavirus OC43 (PCR) Coronavirus HKU1 (PCR) Coronavirus 229E (PCR) SARS-CoV-2 (PCR) Coronavirus NL63 (PCR) C. neoform/gattii (PCR) Enterobacterales (PCR) E. cloacae complex PCR Enterococc faecalis PCR Enterococc faecium PCR E. coli (PCR) H. influenzae (PCR) Human Metapneumovir PCR Influenza Type A (PCR) Influenza Type B (PCR) Klebsiella aerogenes (PCR) Klebsiella oxytoca PCR Klebsiella pneumoniae List. monocytogenes PCR M. pneumoniae (PCR) N. meningitidis (PCR) Parainfluenza 1 (PCR) Parainfluenza 2 (PCR) Parainfluenza 3 (PCR) Parainfluenza 4 (PCR) Proteus species (PCR) RSV (PCR) Entero/Rhino (PCR) Salmonella spp. (PCR) Serratia marcescens PCR Staphylococcus sp PCR Staph aureus (PCR) mcr-1 Colistin Res Gene PCR Staph epidermidis (PCR) Staph lugdunensis PCR S. maltophilia (PCR) Streptococcus sp PCR Group A Strep (PCR) Strep agalactiae (PCR) Strep pneumoniae (PCR) P. aeruginosa (PCR) blaIMP Car res Gene PCR KPC-Carbap Res Gene PCR blaNDM Car Res Gene PCR OXA-48 Carbapenem Resis Gene (PCR) blaVIM Car Res Gene PCR CTX-M Gene Resistance (PCR) 11/22/22 11/22/22 11/22/22 14:50 15:30 15:49 WBC RBC Hgb Hct MCV MCH MCHC RDW Plt Count Neut % (Auto) Lymph % (Auto) [place] % (Auto) Eos % (Auto) Baso % (Auto) Neut # (Auto) Lymph # (Auto) [place] # (Auto) Eos # (Auto) Baso # (Auto) PT INR APTT Sodium Potassium Chloride Carbon Dioxide BUN Creatinine Estimated GFR BUN/Creatinine Ratio Glucose Lactate 1.5 Calcium Total Bilirubin AST ALT Alkaline Phosphatase Total Protein Albumin Globulin Albumin/Globulin Ratio Lipase Procalcitonin Urine Color Yellow Urine Appearance Cloudy Urine pH 5.5 Ur Specific [place] 1.020 Urine Protein Trace H Urine Glucose (UA) Negative Urine Ketones Negative Urine Occult Blood Trace-intact Urine Nitrate Negative Urine Bilirubin Negative Urine Urobilinogen 0.2 Ur Leukocyte Esterase 2+ H Urine RBC None seen Urine WBC >100/hpf H Ur Squamous Epith Cells None seen Urine Bacteria Many (>30) H Ur Culture Indicated? Specimen cultured Nasal Screen MRSA (PCR) A.calcoaceticus-baumannii cmplx PCR Chlamy pneumoniae PCR Not detected Adenovirus (PCR) Not detected Bacteroides fragilis B. pertussis DNA (PCR) Not detected B.parapertussis DNA PCR Not detected Nikki albicans (PCR) Nikki auris (PCR) C. glabrata (PCR) C. krusei (PCR) C. parapsilosis (PCR) C. tropicalis (PCR) Coronavirus OC43 (PCR) Not detected Coronavirus HKU1 (PCR) Not detected Coronavirus 229E (PCR) Not detected SARS-CoV-2 (PCR) Not detected Coronavirus NL63 (PCR) Not detected C. neoform/gattii (PCR) Enterobacterales (PCR) E. cloacae complex PCR Enterococc faecalis PCR Enterococc faecium PCR E. coli (PCR) H. influenzae (PCR) Human Metapneumovir PCR Not detected Influenza Type A (PCR) Not detected Influenza Type B (PCR) Not detected Klebsiella aerogenes (PCR) Klebsiella oxytoca PCR Klebsiella pneumoniae List. monocytogenes PCR M. pneumoniae (PCR) Not detected N. meningitidis (PCR) Parainfluenza 1 (PCR) Not detected Parainfluenza 2 (PCR) Not detected Parainfluenza 3 (PCR) Not detected Parainfluenza 4 (PCR) Not detected Proteus species (PCR) RSV (PCR) Not detected Entero/Rhino (PCR) Not detected Salmonella spp. (PCR) Serratia marcescens PCR Staphylococcus sp PCR Staph aureus (PCR) mcr-1 Colistin Res Gene PCR Staph epidermidis (PCR) Staph lugdunensis PCR S. maltophilia (PCR) Streptococcus sp PCR Group A Strep (PCR) Strep agalactiae (PCR) Strep pneumoniae (PCR) P. aeruginosa (PCR) blaIMP Car res Gene PCR KPC-Carbap Res Gene PCR blaNDM Car Res Gene PCR OXA-48 Carbapenem Resis Gene (PCR) blaVIM Car Res Gene PCR CTX-M Gene Resistance (PCR) 11/22/22 11/23/2211/23/23 19:28 04:03 06:25 WBC RBC Hgb Hct MCV MCH MCHC RDW Plt Count Neut % (Auto) Lymph % (Auto) [place] % (Auto) Eos % (Auto) Baso % (Auto) Neut # (Auto) Lymph # (Auto) [place] # (Auto) Eos # (Auto) Baso # (Auto) PT INR APTT Sodium 136 L Potassium 3.6 Chloride 107 Carbon Dioxide 21 L BUN 33 H Creatinine 1.26 H Estimated GFR 58 L BUN/Creatinine Ratio 26.2 H Glucose 105 Lactate Calcium 7.2 L Total Bilirubin 0.7 AST 30 ALT 25 Alkaline Phosphatase 79 Total Protein 5.2 L Albumin 2.8 L Globulin 2.4 Albumin/Globulin Ratio 1.2 Lipase Procalcitonin Urine Color Urine Appearance Urine pH Ur Specific [place] Urine Protein Urine Glucose (UA) Urine Ketones Urine Occult Blood Urine Nitrate Urine Bilirubin Urine Urobilinogen Ur Leukocyte Esterase Urine RBC Urine WBC Ur Squamous Epith Cells Urine Bacteria Ur Culture Indicated? Nasal Screen MRSA (PCR) Not detected A.calcoaceticus-baumannii cmplx PCR Not detected Chlamy pneumoniae PCR Adenovirus (PCR) Bacteroides fragilis Not detected B. pertussis DNA (PCR) B.parapertussis DNA PCR Nikki albicans (PCR) Not detected Nikki auris (PCR) Not detected C. glabrata (PCR) Not detected C. krusei (PCR) Not detected C. parapsilosis (PCR) Not detected C. tropicalis (PCR) Not detected Coronavirus OC43 (PCR) Coronavirus HKU1 (PCR) Coronavirus 229E (PCR) SARS-CoV-2 (PCR) Coronavirus NL63 (PCR) C. neoform/gattii (PCR) Not detected Enterobacterales (PCR) Detected H E. cloacae complex PCR Not detected Enterococc faecalis PCR Not detected Enterococc faecium PCR Not detected E. coli (PCR) Detected H H. influenzae (PCR) Not detected Human Metapneumovir PCR Influenza Type A (PCR) Influenza Type B (PCR) Klebsiella aerogenes (PCR) Not detected Klebsiella oxytoca PCR Not detected Klebsiella pneumoniae Not detected List. monocytogenes PCR Not detected M. pneumoniae (PCR) N. meningitidis (PCR) Not detected Parainfluenza 1 (PCR) Parainfluenza 2 (PCR) Parainfluenza 3 (PCR) Parainfluenza 4 (PCR) Proteus species (PCR) Not detected RSV (PCR) Entero/Rhino (PCR) Salmonella spp. (PCR) Not detected Serratia marcescens PCR Not detected Staphylococcus sp PCR Not detected Staph aureus (PCR) Not detected mcr-1 Colist[place] Res Gene PCR Not detected Staph epidermidis (PCR) Not detected Staph lugdunensis PCR Not detected S. maltophilia (PCR) Not detected Streptococcus sp PCR Not detected Group A Strep (PCR) Not detected Strep agalactiae (PCR) Not detected Strep pneumoniae (PCR) Not detected P. aeruginosa (PCR) Not detected blaIMP Car res Gene PCR Not detected KPC-Carbap Res Gene PCR Not detected blaNDM Car Res Gene PCR Not detected OXA-48 Carbapenem Resis Gene (PCR) Not detected blaVIM Car Res Gene PCR Not detected CTX-M Gene Resistance (PCR) Not detected 11/23/22 11/23/22 06:25 08:18 WBC 11.0 RBC 3.59 L Hgb 10.6 L Hct 30.9 L MCV 86.0 MCH 29.5 MCHC 34.3 RDW 15.4 H Plt Count 146 L Neut % (Auto) 92.2 H Lymph % (Auto) 2.8 L [place] % (Auto) 4.8 Eos % (Auto) 0.0 L Baso % (Auto) 0.2 Neut # (Auto) 93483 H Lymph # (Auto) 300 L [place] # (Auto) 500 Eos # (Auto) 0 Baso # (Auto) 0 PT INR APTT Sodium Potassium Chloride Carbon Dioxide BUN Creatinine Estimated GFR BUN/Creatinine Ratio Glucose Lactate Calcium Total Bilirubin AST ALT Alkaline Phosphatase Total Protein Albumin Globulin Albumin/Globulin Ratio Lipase Procalcitonin 7.88 H Urine Color Urine Appearance Urine pH Ur Specific [place] Urine Protein Urine Glucose (UA) Urine Ketones Urine Occult Blood Urine Nitrate Urine Bilirubin Urine Urobilinogen Ur Leukocyte Esterase Urine RBC Urine WBC Ur Squamous Epith Cells Urine Bacteria Ur Culture Indicated? Nasal Screen MRSA (PCR) A.calcoaceticus-baumannii cmplx PCR Chlamy pneumoniae PCR Adenovirus (PCR) Bacteroides fragilis B. pertussis DNA (PCR) B.parapertussis DNA PCR Nikki albicans (PCR) Nikki auris (PCR) C. glabrata (PCR) C. krusei (PCR) C. parapsilosis (PCR) C. tropicalis (PCR) Coronavirus OC43 (PCR) Coronavirus HKU1 (PCR) Coronavirus 229E (PCR) SARS-CoV-2 (PCR) Coronavirus NL63 (PCR) C. neoform/gattii (PCR) Enterobacterales (PCR) E. cloacae complex PCR Enterococc faecalis PCR Enterococc faecium PCR E. coli (PCR) H. influenzae (PCR) Human Metapneumovir PCR Influenza Type A (PCR) Influenza Type B (PCR) Klebsiella aerogenes (PCR) Klebsiella oxytoca PCR Klebsiella pneumoniae List. monocytogenes PCR M. pneumoniae (PCR) N. meningitidis (PCR) Parainfluenza 1 (PCR) Parainfluenza 2 (PCR) Parainfluenza 3 (PCR) Parainfluenza 4 (PCR) Proteus species (PCR) RSV (PCR) Entero/Rhino (PCR) Salmonella spp. (PCR) Serratia marcescens PCR Staphylococcus sp PCR Staph aureus (PCR) mcr-1 Colistin Res Gene PCR Staph epidermidis (PCR) Staph lugdunensis PCR S. maltophilia (PCR) Streptococcus sp PCR Group A Strep (PCR) Strep agalactiae (PCR) Strep pneumoniae (PCR) P. aeruginosa (PCR) blaIMP Car res Gene PCR KPC-Carbap Res Gene PCR blaNDM Car Res Gene PCR OXA-48 Carbapenem Resis Gene (PCR) blaVIM Car Res Gene PCR CTX-M Gene Resistance (PCR) PFSH Medical History Bowel obstruction BPH w urinary obs/LUTS HTN (hypertension) Mixed hyperlipidemia Right inguinal hernia Surgical History History of skin surgery (03/27/19) History of skin surgery (04/13/19) Status post left inguinal hernia repair (~08/2022) Social History marital status: household members: spouse lives independently: Yes occupational status: previously employed Smoking Status: Never smoker alcohol intake: current substance use type: does not use Assessment & Plan Assessment & Plan narrative: 1. Sepsis from a urinary tract source-patient remained somewhat hypotensive with evidence of acute kidney injury. I think he needs aggressive fluid resuscitation ongoing. Continue with fluids to support blood pressure etcetera. No history of cardiac issues to make me concerned about volume overload at this stage anyway. Patient with super high fever now down. Seems to be improved as far as a fever standpoint and mentation. 2. Urinary tract infection-patient is acting like he has a pyelonephritis with a high fever and significant alteration in mentation as well as sepsis. However there is no nausea and there is no flank pain. Certainly has a very complicated urinary tract infection at this point. Already growing E coli from his urine and blood sensitivities are still pending. His antibiotic therapy was broadened when he spiked a fever to 105+ yesterday. Will tailor antibiotic therapy once organism is fully identified with sensitivities etcetera 3. Acute kidney injury-patient with bump in creatinine this morning. Continue with vigorous fluid resuscitation in the setting of sepsis as above 4. BPH with LUTS-patient now with indwelling [place] catheter which should remain in place and likely should remain in place until he can have his prostate more definitively managed given the significant infection. 5. Bradycardia-patient is somewhat bradycardic specially with his hypotension. Continue to monitor. Not on any medications that should be producing bradycardia. For now continue monitoring in ICU setting. Quality VTE Deep Vein Thrombosis/Pulmonary Embolism Present on Admission: No
--- NOTE | 2022-11-23 10:30 | DI.US.S_ITS ---
PROCEDURE: US RENAL COMPLETE INDICATIONS: URINARY SEPESIS AND FLANK PAIN TECHNIQUE: Real-time scanning was performed of the kidneys and bladder, with image documentation. COMPARISON: None. FINDINGS: Kidneys: Kidneys are normal in size. Right kidney measures 10.2 cm long; left kidney measures 1.2 cm long. Right renal cortical thickness is 9.6 cm; left renal cortical thickness is 2.2 cm. Renal cortical echotexture is normal. No hydronephrosis or nephrolithiasis. No suspicious solid mass lesions. 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 Miscellaneous: No free pelvic fluid. IMPRESSION: Normal bilateral renal ultrasound. Dictated by: Carlyle Bentley M.D. on 11/23/2022 at 12:51 Approved by: Carlyle Bentley M.D. on 11/23/2022 at 12:54
[2022-11-23] MEDS: SODIUM CHLORIDE 0.9% 1,000 ML 250 ML IV ×4 (10:55→23:12)
[2022-11-23] MEDS: PIPERACILLIN/TAZO 3.375 GM in SODIUM CHLORIDE 0.9% 100 ML IV ×2 (13:57→20:53)
[2022-11-23] MEDS: IBUPROFEN 600 MG TABLET PO (14:41)
--- NOTE | 2022-11-23 16:45 | PT-IP ANOTE ---
PT eval received. EMR reviewed. Talked with nurse and pt on hold for PT. Pt continues to have a high fever and low BP: 70s/30s per nurse. will f/u
--- NOTE | 2022-11-23 17:52 | PC.NURSE ---
Day shift: Pt A&O to self, place, situation, year and month, unsure of day. Pt denies pain. At request to use BSC, pt assisted to side of the bed, pt's BP decreased to 70's/40's and pt expressed dizziness. Pt assisted back into bed from dangling to laying position, BP still 80's/40's. Provider notified. New orders received. Provider at bedside. Provider notified of low urinary output and continued hypotensive. New orders received. Pt resting comfortably. Temp reached T max of 102.0, treated with scheduled antipyretic and PRN antipyretic (See MAR). Temp still 101.8, ice packs placed behind neck and axillary. Temp down to 99.3. Pt tolerating a general diet. at bedside. Call light within reach and pt able to use to make needs known and met. Bed alarm active. Care ongoing.
[2022-11-24] VITALS (67 sets, daily range): BP systolic 109–175; BP diastolic 60–86; PULSE 48–69; RESP 13–35; TEMP 35.6–38.7; O2SAT 93–99
[2022-11-24] MEDS: ACETAMINOPHEN 325 MG TABLET 650 MG PO ×4 (00:42→19:21)
[2022-11-24] MEDS: SODIUM CHLORIDE 0.9% 1,000 ML 250 ML IV ×2 (03:11→07:26)
[2022-11-24] MEDS: PIPERACILLIN/TAZO 3.375 GM in SODIUM CHLORIDE 0.9% 100 ML IV ×3 (04:43→20:26)
[2022-11-24 05:14] LABS: Add Manual Diff / Slide Review NO; Basophils Absolute Auto 0 /uL (0-100); Basophils Percent Auto 0.3 % (0-2); Eosinophils Absolute Auto 0 /uL (0-450); Eosinophils Percent Auto 0.2 % (2-4); Hematocrit 30.7 % (41-53); Hemoglobin 10.5 g/dL (13.5-17.5); Lymphocytes Absolute Auto 200 /uL (1100-4500); Lymphocytes Percent Auto 4.3 % (25-40); Mean Corpuscular HGB Conc 34.2 % (30-36); Mean Corpuscular Hemoglobin 29.4 PG (26-34); Mean Corpuscular Volume 85.8 fL (80-100); Monocytes Absolute Auto 400 /uL (0-900); Neutrophils Absolute Auto 4900 /uL (1500-7000); Neutrophils Percent Auto 88.2 % (50-75); Platelet Count 108 X10^3/uL (150-400); Red Blood Cell Count 3.58 X10^6/uL (4.5-5.9); Red Cell Distribution Width 15.6 % (11.6-14.8); White Blood Cell Count 5.5 X10^3/uL (4.5-11.0)
[2022-11-24 05:23] LABS: BUN Creatinine Ratio 24.5 (6-22); Blood Urea Nitrogen 27 mg/dL (9-20); Calcium 6.8 mg/dL (8.4-10.2); Carbon Dioxide 17 mmol/L (22-32); Chloride 111 mmol/L (98-107); Estimated Glomerular Filt Rate > 60 mL/min (>60); Glucose 108 mg/dL (80-110); HEMOLYSIS < 15 (0-50); Potassium 3.2 mmol/L (3.4-5.1); Sodium 135 mmol/L (137-145)
--- NOTE | 2022-11-24 06:43 | PC.NURSE ---
0640- Shift note: Patient has rested most of the night. Patient had a bowel movement and transferred with one assist to the bedside commode. Tmax was 100.6.
[2022-11-24] MEDS: POTASSIUM CHLORIDE 20 MEQ TAB 40 MEQ PO ×2 (07:30→13:11)
[2022-11-24] MEDS: ENOXAPARIN 40 MG/0.4 ML SYRINGE SUBCUT (08:10)
[2022-11-24] MEDS: PSYLLIUM HUSK 1 PACKET PO ×2 (08:11→20:25)
[2022-11-24] MEDS: allopurinoL 100 MG TABLET PO (08:11)
[2022-11-24] MEDS: ATORVASTATIN 20 MG TABLET PO (08:11)
--- NOTE | 2022-11-24 09:39 | P.PN_ITS ---
Subjective Subjective Date Patient Seen: 11/24/22 Time Patient Seen: 09:40 Interval history: Patient was febrile (to 102.0) much of the afternoon yesterday. He then defervesced and became minimally febrile again (T-max 100.6?) overnight. This morning is afebrile. White count is normal. Renal function has returned to normal. E coli growing from urine is pansensitive. E coli also growing from both blood cultures presume same organism. Somewhat hypokalemic now on potassium replacement Patient feeling better. Been up to the chair. No real complaints or issues Exam Vital Signs (past 8 hours): - 11/24/22 02:00 11/24/22 02:00 11/24/22 02:30 Temperature 100.6 F H 100.4 F H Pulse Rate 61 62 Respiratory Rate 22 25 H Blood Pressure 151/72 H Pulse Oximetry 97 97 Oxygen Delivery Method Oxygen Flow Rate 11/24/22 03:00 11/24/22 03:30 11/24/22 06:35 Temperature 100.0 F H 99.7 F H 99.5 F Pulse Rate 54 L 51 L Respiratory Rate 22 22 Blood Pressure Pulse Oximetry 96 93 Oxygen Delivery Method Oxygen Flow Rate 11/24/22 04:00 11/24/22 04:00 11/24/22 04:30 Temperature 99.5 F 99.5 F Pulse Rate 50 L 49 L Respiratory Rate 20 20 Blood Pressure 139/64 Pulse Oximetry 94 94 Oxygen Delivery Method Oxygen Flow Rate 11/24/22 05:00 11/24/22 05:30 11/24/22 06:00 Temperature 99.5 F 99.3 F 99.5 F Pulse Rate 49 L 56 L 51 L Respiratory Rate 21 21 18 Blood Pressure Pulse Oximetry 94 94 97 Oxygen Delivery Method Oxygen Flow Rate 11/24/22 06:01 11/24/22 06:01 11/24/22 06:30 Temperature 99.5 F 99.5 F Pulse Rate 51 L 52 L Respiratory Rate 13 21 Blood Pressure 166/72 H Pulse Oximetry 97 97 Oxygen Delivery Method Oxygen Flow Rate 11/24/22 05:00 11/24/22 07:00 11/24/22 07:37 Temperature 99.3 F 99.3 F Pulse Rate 52 L Respiratory Rate 17 Blood Pressure Pulse Oximetry 96 Oxygen Delivery Method Room Air Oxygen Flow Rate 11/24/22 07:39 11/24/22 07:30 11/24/22 08:00 Temperature 99.3 F 99.0 F Pulse Rate 61 51 L Respiratory Rate 15 22 Blood Pressure Pulse Oximetry 96 96 95 Oxygen Delivery Method Room Air Oxygen Flow Rate 0 11/24/22 08:01 11/24/22 08:01 11/24/22 08:30 Temperature 99.0 F 99.0 F Pulse Rate 55 L 64 Respiratory Rate 22 21 Blood Pressure 156/74 H Pulse Oximetry 96 96 Oxygen Delivery Method Oxygen Flow Rate 11/24/22 08:38 11/24/22 08:38 11/24/22 08:47 Temperature 99.0 F Pulse Rate 64 66 Respiratory Rate 26 H 33 H Blood Pressure 138/63 Pulse Oximetry 97 Oxygen Delivery Method Oxygen Flow Rate 11/24/22 08:47 11/24/22 09:00 11/24/22 09:30 Temperature 96.1 F L 99.0 F Pulse Rate 65 69 Respiratory Rate 26 H 28 H Blood Pressure 143/60 H Pulse Oximetry Oxygen Delivery Method Oxygen Flow Rate Oxygen Delivery Method Room Air Oxygen Flow Rate 0 Objective Labs 11/24/22 04:15 11/24/22 04:15 Labs: Laboratory Results - last 24 hr 11/24/22 11/24/22 04:15 04:15 WBC 5.5 RBC 3.58 L Hgb 10.5 L Hct 30.7 L MCV 85.8 MCH 29.4 MCHC 34.2 RDW 15.6 H Plt Count 108 L Neut % (Auto) 88.2 H Lymph % (Auto) 4.3 L [place] % (Auto) 7.0 Eos % (Auto) 0.2 L Baso % (Auto) 0.3 Neut # (Auto) 4900 Lymph # (Auto) 200 L [place] # (Auto) 400 Eos # (Auto) 0 Baso # (Auto) 0 Sodium 135 L Potassium 3.2 L Chloride 111 H Carbon Dioxide 17 L BUN 27 H Creatinine 1.10 Estimated GFR > 60 BUN/Creatinine Ratio 24.5 H Glucose 108 Calcium 6.8 L PFSH Medical History Bowel obstruction BPH w urinary obs/LUTS HTN (hypertension) Mixed hyperlipidemia Right inguinal hernia Surgical History History of skin surgery (03/27/19) History of skin surgery (04/13/19) Status post left inguinal hernia repair (~08/2022) Social History marital status: household members: spouse lives independently: Yes occupational status: previously employed Smoking Status: Never smoker alcohol intake: current substance use type: does not use Assessment & Plan Assessment & Plan narrative: 1. Sepsis from a urinary tract source-patient appears to be resolving this. Blood pressures been better in fact minimally hypertensive at this point. I think it is okay to back off on his IV fluids etcetera. 2. Urinary tract infection-patient with complicated UTI at a minimum. Was persistently febrile much of the day yesterday and then to a lesser extent overnight. Overall he is still spiking fevers but is overall fever curve is improving. I would expect that he probably will not have additional fever at this point. However I would continue him on parental antibiotics, specifically the Zosyn, until he is afebrile times 24+ hours. His urine culture shows his E coli be pansensitive in so it should be easy to pick an oral antibiotic 3. Acute kidney injury-patient's renal function has returned to normal with the IV fluid resuscitation. Will continue with IV fluids but at a much lower rate 4. BPH with LUTS-patient now with indwelling [place] catheter which should remain in place and likely should remain in place until he can have his prostate more definitively managed given the significant infection. 5. Bradycardia-patient is somewhat bradycardic. He normally takes metoprolol f or hypertension which I think would not be inappropriate medication for him at this point. Will not plan to resume this upon discharge 6. Hypertension-patient if anything somewhat hypertensive with peak in the 160 systolic yesterday. Given his previous hypotension I am hesitant to put him on anything for that degree of hypertension at this time. If he gets another [address] without any significant hypotension than I think treatment with something like amlodipine verses maybe lisinopril would be entirely appropriate. I do not believe metoprolol should be restarted upon discharge Quality VTE Deep Vein Thrombosis/Pulmonary Embolism Present on Admission: No
--- NOTE | 2022-11-24 10:42 | PT.IIE ---
Current Diagnoses Sepsis, unspecified organism (11/22/22) Surgical History (Last Reviewed 11/23/22 @ 10:26 by Andres Russell MD) History of skin surgery (03/27/19) History of skin surgery (04/13/19) Status post left inguinal hernia repair (~08/2022) Medical History (Last Reviewed 11/23/22 @ 10:26 by Andres Russell MD) Bowel obstruction BPH w urinary obs/LUTS HTN (hypertension) Mixed hyperlipidemia Right inguinal hernia Physical Therapy Inpatient Evaluation/Re-Eval M1 PT/OT-IP Prior Functional Status Start: 11/24/22 08:21 Freq: NEEDED Status: Active Protocol: Document 11/24/22 10:31 SAK (Rec: 11/24/22 10:42 [facility] [id number]) Medical Review Prior Functional Status Medical History Reviewed Yes Diet/Fluid Consistency Regular Communication A & x 4 Mobility and Gait gait without device Activities of Daily Living and IADL's indep Prior Functional Level (Other details) mowed lawn, walked Social History Household Members spouse Living Arrangements House Number of Floors (Floors) Two Floors Number of Stairs To Enter/Railing? 2 with railing has downstairs with railing Home Environment Standard Height Toilet,Walk in Shower,Built-In Shower Seat Additional Social History Comment No padmini bars in bathroom though patient reports he and his have discussed M2 PT-IP Current Condition Start: 11/24/22 08:21 Freq: NEEDED Status: Active Protocol: Document 11/24/22 10:31 SAK (Rec: 11/24/22 10:42 [facility] [id number]) Physical Therapy Current Condition Current Condition Evaluation Date 11/24/22 Treatment Diagnosis sepsis Onset Date 11/22/22 M3 PT-IP Subjective Start: 11/24/22 08:21 Freq: NEEDED Status: Active Protocol: Document 11/24/22 10:31 SAK (Rec: 11/24/22 10:42 [facility] [id number]) Subjective Physical Therapy Visit Type Type Initial Evaluation Visit Start Time 08:36 Visit Stop Time 09:15 Total Visit Minutes 39 Physical Therapy Visit Comments Patient Comments Patient willing to do PT Patient Goals discharge home with assistance of his Therapy Pain Assessment Pain When Pain Assessed At Rest Pain Present Pain Present Pain Reported FLACC Pain Scale Face No particular expression Legs Normal position; relaxed Activity Quiet, moves easily Cry No cry (awake or asleep) Consolability Content, relaxed FLACC Total 0 Location Lower back Intensity 2 Scale Used Numeric (0 - 10) Description Chronic M4 PT-IP Mobility and Gait Start: 11/24/22 08:21 Freq: NEEDED Status: Active Protocol: Document 11/24/22 10:31 [facility] (Rec: 11/24/22 10:42 [facility] [id number]) PT-Bed Mobility Assessment Rolling Level of Assist Standby Assistance Supine to Sit Supine to Sit Contact Guard Assistance Scooting Scooting to Edge of Bed Standby Assistance PT-Transfer Assessment Sit to and From Stand Sit to and from Stand Contact Guard Assistance Equipment Transfer Assistive Device Bed Rail,Gait Belt Orthotic/Prosthetic Devices or Brace: No Transfers Transfer Destination Bed Transfer Technique ambulation Transfer Ability Level of Assist Contact Guard Assistance, Minimal Assistance Gait Assessment Gait Gait Assistance Required: Contact Guard Assist,Minimum Assistance Distance (Feet) 60 Able to Maintain Weight Bearing Status Yes During Gait Assistive Devices Assistive Device Gait Belt Orthotic/Prosthetic Devices or Brace: No Gait Deviations General Gait Pattern Decreased Stride Length, Decreased Feet Clearance Comments Gait Comments RN assist for PT IV lines, catheter PT-Balance Assessment Sitting Balance and Reactions Static Sitting Balance Ability Good Dynamic Sitting Balance Ability Good Standing Balance and Reactions Static Standing Balance Ability Fair Dynamic Standing Balance Ability Fair M5 PT-IP Objective Assessments Start: 11/24/22 08:21 Freq: NEEDED Status: Active Protocol: Document 11/24/22 10:31 [facility] (Rec: 11/24/22 10:42 [facility] [id number]) Gross Range of Motion Upper Extremity ROM Assessment Within Functional Limits Lower Extremity ROM Assessment Within Functional Limits Strength Upper Extremity Strength Assessment Within Functional Limits Lower Extremity Strength Assessment Within Functional Limits Sensation Assessment Sensation Gross Sensation WNL Muscle Tone Muscle Tone WNL Yes M6 PT-IP Treatment Start: 11/24/22 08:21 Freq: NEEDED Status: Active Protocol: Document 11/24/22 10:31 NONI (Rec: 11/24/22 10:42 [facility] [id number]) Physical Therapy Treatment Exercises Exercises Ankle Pumps,Short Arc Quads M7 PT-IP Assessment and Plan Start: 11/24/22 08:21 Freq: NEEDED Status: Active Protocol: Document 11/24/22 10:31 NONI (Rec: 11/24/22 10:42 SAK [id number]) PT Summary Assessment and Plan Potential Rehabilitation Potential Good Status of Condition at Evaluation Evolving Summary Impairments Gait,Activity Tolerance Assessment Summary Patient admitted to hospital with sepsis, on IV antibiotics , unable to do PT yesterday due to low BP. Patient c/o mild dizziness when first sat up but denied after 1 min and during gait. Able to ambulate in hallway and was assisted to bathroom for BM with CGA to min assist. Baseline is independent with all mobility. Feel he will be able to discharge home with his . He has 2 stairs to enter with railing. Goals Bed Mobility Goal Independent Transfer Goal Independent Gait Goal Independent Gait Distance 100 Days to Meet Goals 7 Frequency of Treatment Frequency Of Treatment Once a Day Treatment Plan Physical Therapy Treatment Plan Bed Mobility Training,Transfer Training,Gait Training, Therapeutic Exercise,Discharge Planning Weight Bearing Status Weight Bearing Status Full Weight Bearing Recommendations To Nursing Amount of Assist Needed 1 Person Assist Discharge Recommendations PT Discharge Recommendations Home with / Assist Available Transportation Needs at Discharge Private Vehicle
--- NOTE | 2022-11-24 13:07 | CM.DANOTE ---
Initial Discharge Assessment Note: Case reviewed, met with patient and spouse. Introduced self and role. Payer: Medicare and [facility] PCP: Wm Katz 82 year old male admitted 11.22.22 with acute UTI (e coli) and sepsis. His blood cultures are also + for e coli. He was downgraded to floor care today. He is slowly feeling better he states. Waters catheter remaining in, patient has history of urinary retention. He is ambulating in room without a device. See PT note. Patient lives with spouse locally, they are both active and independent and he drives. He will need to follow up outpatient with urologist for continuing management of his prostrate issue. PLAN: When medically cleared, discharge home to care of spouse who will provide transportation. BARRY Discharge Planning/Care Management CM Discharge Assessment Start: 11/24/22 13:01 Freq: Status: Active Protocol: Document 11/24/22 13:01 (Rec: 11/24/22 13:03 [id number]) Discharge Planning Assessment Assigned Animal Taxonomist Elvia Tellez RN/GAGEP Advance Directives? Yes Advance Directives on File No History Provided By Patient,Family Member,Medical Record Prior Living Arrangements House Household Members spouse Type of transporation used prior to Drives own vehicle admit Independent with ADL's Yes Is patient alert and oriented? Yes Needs Assistance With Home Chores / Shopping Caregiver for Another No Barriers to Discharge No Discharge Plan Home Additional Comment To be determined, possibly HH Review Status In Process Next Review Type Continued Stay Review
[2022-11-24] MEDS: IBUPROFEN 600 MG TABLET PO (14:12)
[2022-11-24] MEDS: SODIUM CHLORIDE 0.9% 1,000 ML 75 ML IV (14:13)
--- NOTE | 2022-11-24 17:04 | OT.IP.EVAL ---
Current Diagnoses Sepsis, unspecified organism (11/22/22) Past Medical History (Last Reviewed 11/23/22 @ 10:26 by Andres Russell MD) Bowel obstruction BPH w urinary obs/LUTS HTN (hypertension) Mixed hyperlipidemia Right inguinal hernia Surgical History (Last Reviewed 11/23/22 @ 10:26 by Andres Russell MD) History of skin surgery (03/27/19) History of skin surgery (04/13/19) Status post left inguinal hernia repair (~08/2022) Occupational Therapy Inpatient Evaluation/Re-Eval M1 PT/OT-IP Prior Functional Status Start: 11/24/22 08:21 Freq: NEEDED Status: Active Protocol: Document 11/24/22 17:10 CGR (Rec: 11/24/22 17:19 R [id number]) Medical Review Prior Functional Status Medical History Reviewed Yes Diet/Fluid Consistency Regular Communication Pt is an effective verbal communicator. Mobility and Gait gait without device Activities of Daily Living and IADL's indep Prior Functional Level (Other details) mowed lawn, walked Social History Household Members spouse Living Arrangements House Number of Floors (Floors) Two Floors Number of Stairs To Enter/Railing? Pt has 3 steps to enter from garage and a flight of stairs down to the unfinished basement that they use minimally. Home Environment Standard Height Toilet,Walk in Shower,Built-In Shower Seat Additional Social History Comment No padmini bars in bathroom though patient reports he and his have discussed M2 OT-IP Current Condition Start: 11/24/22 17:10 Freq: Status: Active Protocol: Document 11/24/22 17:10 CGR (Rec: 11/24/22 17:19 CGR [id number]) Occupational Therapy Current Condition Current Condition Evaluation Date 11/24/22 Treatment Diagnosis UTI sepsis, metabolic encephalopathy Diagnosis Onset Date 11/22/22 M3 OT- IP Subjective and Pain Start: 11/24/22 17:10 Freq: Status: Active Protocol: Document 11/24/22 17:10 CGR (Rec: 11/24/22 17:19 R [id number]) OT- Subjective Occupational Therapy Visit Type Type Initial Evaluation Visit Start Time 16:39 Visit Stop Time 17:04 Total Visit Minutes 25 Notes Pt's present throughout session. OT Pain Assessment Pain When Pain Assessed At Rest Pain Present Pain Present Denied Pain M4 OT- IP ADL's Start: 11/24/22 17:10 Freq: Status: Active Protocol: Document 11/24/22 17:10 CGR (Rec: 11/24/22 17:19 CGR [id number]) OT [id number] Comments OT Self-Feeding Comments not yet meal time, dinner tray delivered as this automobile service writer left . OT ADL-Grooming Comments OT Grooming Comments Pt declined OT ADL-Oral Care Comments Oral Care Comments Pt declined OT ADL-Dressing Comments OT Dressing Comments not performed OT ADL-Toileting General Evaluation Toileting Ability Total Assistance Comments OT Toileting Comments stein OT ADL-Bathing Comments OT Bathing Comments not performed M5 OT- IP IADL's Start: 11/24/22 17:10 Freq: Status: Active Protocol: Document 11/24/22 17:10 CGR (Rec: 11/24/22 17:19 CGR [id number]) OT-Instrumental Activities of Daily Living Deficits IADL Deficits Identified Deficits Home Safety Awareness Awareness of Need for Assistance at Home Decreased Awareness Ability to Problem Solve Emergency Able to Problem Solve Situations Medication Management Medication Management Caregiver Administers Money Management Money Management Caregiver Provides Assistance Meal Preparation Meal Preparation Caregiver Provides Assist Order Caller Order Caller Caregiver Provides Assist Driving Driving Comments Pt drives at baseline. M6 OT- IP Functional Cognition Start: 11/24/22 17:10 Freq: Status: Active Protocol: Document 11/24/22 17:10 CGR (Rec: 11/24/22 17:19 CGR [id number]) Cognitive Factors Limiting Selfcare Function Cognitive Ability Level of Alertness Alert Patient Orientation Name,Age,Birthday,Month,Date, Year,Day of Week,Place, Situation Attention Span Ability Capable of Focused Attention, Unable to Sustain Attention Ability to Follow Commands Able to Follow One Step Commands with Increased Time, Able to Follow One Step Commands with Repetition Cognitive Comments Cognitive Assessment Comments Pt needs extra time for processing. OT- Vision and Hearing OT- Hearing Assessment OT- Hearing Assessment Hearing Impaired OT- Vision Assessment Visual Acuity Glasses All The Time Visual Attentiveness Impaired Occular Pursuits Impaired Horizontal Visual Convergence WFL Vision Assessment Comments Pt has difficulty following and instead jumps from one side to another rather than smooth pursuits. M7 OT- IP Mobility and Balance Start: 11/24/22 17:10 Freq: Status: Active Protocol: Document 11/24/22 17:10 CGR (Rec: 11/24/22 17:19 CGR [id number]) OT- Bed Mobility Assessment Supine to Sit Supine to Sit Assist Standby Assistance Sit to Supine Sit to Supine Assist Standby Assistance OT-Transfer Assessment Sit to and From Stand Sit to and from Stand Standby Assistance Transfers Transfer Ability Standby Assistance Technique Transfer Destination Bed,Chair Transfer Technique Stand Step Pivot Devices Transfer Assistive Devices Gait Belt Comments Mobility Comments Pt transfered with SBA OT- Balance Assessment Sitting Balance and Reactions Static Sitting Balance Ability Normal Dynamic Sitting Balance Ability Normal M8 OT- IP Objective Assessments Start: 11/24/22 17:10 Freq: Status: Active Protocol: Document 11/24/22 17:10 CGR (Rec: 11/24/22 17:19 CGR [id number]) OT Gross Range of Motion Upper Extremity Range of Motion Assessment Within Functional Limits OT Strength Upper Extremity Strength Assessment Within Functional Limits Comments Strength Comments 4+/5 OT- Coordination Assessment Upper Extremity Finger to Nose Test Within Functional Limits Finger Tapping Test Within Functional Limits OT-Muscle Tone Assessment Muscle Tone WNL Yes OT Sensation Assessment Edema Edema Absent M9 OT- IP Assessment and Plan Start: 11/24/22 17:10 Freq: Status: Active Protocol: Document 11/24/22 17:10 CGR (Rec: 11/24/22 17:19 CGR [id number]) OT Summary Assessment and Plan Potential Rehabilitation Potential Good Analytic Complexity at Evaluation Low Summary OT Impairments Functional Cognition, Functional Mobility,Grooming, Dressing,Toileting,Bathing, Toilet Transfers,Shower Transfers,Activity Tolerance Progress Towards Goals Progressing Toward Goals Assessment Summary Pt presents as a low complexity evaluation s/p admit for UTI and metabolic encephalopathy. Pt is still running fevers but states that he feels better today. Pt is moving with SBA but needs extra time for all communication. Pt will benefit from continued OT services but is likely to progress quickly back to his baseline of IND for a discharge home. Goals Grooming Goal Independent Dressing Goal Independent Toileting Goal Independent Bathing Goal Independent Toilet Transfer Goal Independent Shower Transfer Goal Independent Days to Meet Goals 5 Frequency of Treatment Frequency Of Treatment Once a Day Treatment Plan OT Treatment Plan ADL Training,Functional Cognition Training,Functional Mobility,Patient/Family Education,Discharge Planning Other Treatment Recommendations and Next shower, cog assessment if Treatment Focus needed Discharge Recommendations OT Discharge Recommendations Home with Assistance Home Equipment Needs grab bars in the bathroom, discussed with pt and . Transportation Needs at Discharge Private Vehicle
--- NOTE | 2022-11-24 18:05 | PC.NURSE ---
Day shift: Pt A&Ox4, up with PT after breakfast, up with SBA in lazar. Pt reports feeling better. Pt reports to this RN and provider he experienced what he believed to be hallucinations during the night. Afebrile for most of morning. Pt temperature increased in afternoon. Scheduled medication given and PRN antipyretic (See MAR). T-max 101.9 F. Fan provided, blankets minimized per pt comfort. Incentive spirometry provided and pt education provided. Temp decreased to 100.3F. Pt reports, I'm hallucinating. When asked to elaborate, pt reports, I know it isn't real. I can see these construction trucks across the street kicking up dust. Pt remains A&O x self, date, time, situation, place, relays that he is aware the trucks are not there. Pt tolerated dinner, up in chair with chair alarm with spouse at bedside. Call light within reach, pt able to use to make needs known and met. Care ongoing.
[2022-11-25] VITALS (61 sets, daily range): BP systolic 151–221; BP diastolic 69–91; PULSE 48–71; RESP 15–26; TEMP 36.8–38.4; O2SAT 88–98
[2022-11-25] MEDS: ACETAMINOPHEN 325 MG TABLET 650 MG PO ×3 (00:31→16:35)
[2022-11-25] MEDS: MAG HYDROX/ALUM/SIMETH 30 ML UDC PO (02:02)
[2022-11-25] MEDS: SODIUM CHLORIDE 0.9% 1,000 ML 75 ML IV ×2 (03:27→16:45)
[2022-11-25] MEDS: PIPERACILLIN/TAZO 3.375 GM in SODIUM CHLORIDE 0.9% 100 ML IV ×3 (04:47→20:23)
[2022-11-25] MEDS: ONDANSETRON 4 MG/2 ML INJ IV (04:47)
[2022-11-25 05:19] LABS: Magnesium 1.9 mg/dL (1.6-2.3)
[2022-11-25 05:21] LABS: BUN Creatinine Ratio 24.5 (6-22); Blood Urea Nitrogen 23 mg/dL (9-20); Calcium 7.4 mg/dL (8.4-10.2); Carbon Dioxide 18 mmol/L (22-32); Chloride 111 mmol/L (98-107); Estimated Glomerular Filt Rate > 60 mL/min (>60); Glucose 115 mg/dL (80-110); HEMOLYSIS < 15 (0-50); Potassium 3.6 mmol/L (3.4-5.1); Sodium 135 mmol/L (137-145)
[2022-11-25] MEDS: ATORVASTATIN 20 MG TABLET PO (08:39)
[2022-11-25] MEDS: ENOXAPARIN 40 MG/0.4 ML SYRINGE SUBCUT (08:39)
[2022-11-25] MEDS: allopurinoL 100 MG TABLET PO (08:39)
--- NOTE | 2022-11-25 08:40 | DI.ECHO.S_ITS ---
[facility] +---------+ : : [address] [place] : : : : [id number] : : : : Phone: [phone]---------+ Echocardiogram Report + + :Name: VELIA SLADE Study Date: 11/25/2022 Height: 72 in : :[facility] ReadingLocation: Weight: 216 lb : : Gender: Male BSA: 2.2 m2 : :: 1940 Age: 82 yrs BP: 170/73 mmHg: :Reason For Study: ATRIAL FIBRILLATION : :Ordering Physician: DANIEL, : :DARREL Performed By: Cindi Grajeda : :Referring: DARREL SANCHEZ : + + Interpretation Summary Normal left ventricle size with ejection fraction 60-65%. Mild mitral regurgitation. Mild tricuspid regurgitation. Procedure: A two-dimensional transthoracic echocardiogram with color flow and Doppler was performed. The study quality was technically adequate. There is no prior echocardiogram noted for this patient. The patient was in sinus bradycardia with heart rates between 55-66 bpm during the exam. Left Ventricle: The left ventricle is normal in size and wall thickness. The estimated left ventricular end diastolic volume is 96 ml. The ejection fraction is estimated to be 60-65%. There are no focal wall motion abnormalities. Right Ventricle: The right ventricle is normal in size and function. Atria: The left atrial size is normal. Right atrial size is normal. There is no Doppler evidence for an interatrial shunt. Mitral Valve: The mitral valve is normal in structure and function. There is mild mitral regurgitation. Aortic Valve: The aortic valve is trileaflet. The aortic valve is slightly calcified. There is no aortic valve stenosis. There is trace aortic regurgitation. Tricuspid Valve: The tricuspid valve is normal in structure and function. There is mild tricuspid regurgitation. Pulmonic Valve: The pulmonic valve leaflets are thin and pliable; valve motion is normal. There is mild pulmonic regurgitation. Great Vessels: The aortic root is normal size. The dimensions of the ascending aorta are normal. The IVC is of normal diameter and collapses greater than 50% with a sniff. This suggests a low right atrial pressure of 3 mm Hg. Pericardium/ Pleura There is no pericardial effusion. There is no pleural effusion. MMode/2D Measurements & Calculations LVIDd: 6.2 cm LVOT diam: 2.2 cm LVIDs: 3.9 cm Ao root diam: 3.4 cm FS: 36.7 % asc Aorta Diam: 3.7 cm EPSS: 0.53 cm Ao Arch Diam (Prox Trans): 3.4 cm IVSd: 0.64 cm LVPWd: 0.68 cm LV ordonez. diameter/BSA (cm/m^2): 2.8 LV sys. diameter/BSA (cm/m^2): 1.8 LA A2 area: 24.6 cm2 RA long axis: 5.3 cm LA A4 area: 17.5 cm2 RA area: 17.4 cm2 LA length (vol): 5.0 cm RA vol: 49.0 ml LA vol: 73.3 ml RA : 22.3 ml/m2 LA vol index: 33.3 ml/m2 IVC diam: 1.7 cm RVD1 (basal): 4.3 cm RVD2 (mid): 3.2 cm TAPSE: 2.7 cm Doppler Measurements & Calculations Ao V2 max: 132.4 cm/sec LVOT Max Vincent: 114.9 cm/sec Ao V2 mean: 91.4 cm/sec LV V1 max P.3 mmHg Ao max P.0 mmHg LV V1 VTI: 25.0 cm Ao mean P.7 mmHg PAWAN(I,D): 3.3 cm2 Ao V2 VTI: 27.8 cm PAWAN(V,D): 3.2 cm2 sev ratio: 0.90 PAWAN indexed to BSA (cm^2/m^2): 1.5 MV E max vincent: 99.2 cm/sec TR max vincent: 294.3 cm/sec MV A max vincent: 60.3 cm/sec TR max P.8 mmHg MV E/A: 1.6 PA V2 max: 82.5 cm/sec Med Peak E' Vincent: 9.0 cm/sec PA V2 mean: 56.7 cm/sec E/E' med: 11.0 PA mean P.4 mmHg Lat Peak E' Vincent: 10.8 cm/sec PA pr(Accel): 25.9 mmHg E/E' lat: 9.2 E/e' average: 10.1 MV dec time: 0.21 sec [facility] 91.9 ml Electronically signed by: Benitez Duggan on Reading Physician:11/25/2022 09:26 PM
--- NOTE | 2022-11-25 08:41 | PM.PN.1 ---
Subjective Subjective Date Patient Seen: 11/25/22 Time Patient Seen: 08:41 Interval history: Patient overall feeling better. Was having hallucinations starting yesterday. Maybe still having him today. Maybe they are better. Unsure whether they were related to his fever. Had fever through yesterday afternoon. None since. No other changes. Feeling better. No flank pain. No palpitations no chest pain. Exam Vital Signs (past 8 hours): - 11/25/22 04:00 11/25/22 01:00 11/25/22 01:30 Temperature 98.6 F 98.2 F 98.4 F Pulse Rate 55 L 49 L 51 L Respiratory Rate 23 22 21 Blood Pressure 167/76 H Pulse Oximetry 97 97 97 Oxygen Delivery Method Oxygen Flow Rate 0 11/25/22 02:00 11/25/22 02:30 11/25/22 03:00 Temperature 98.4 F 98.4 F 98.4 F Pulse Rate 57 L 52 L 55 L Respiratory Rate 23 21 21 Blood Pressure Pulse Oximetry 98 95 96 Oxygen Delivery Method Oxygen Flow Rate 11/25/22 03:17 11/25/22 03:17 11/25/22 03:30 Temperature 98.6 F 98.6 F Pulse Rate 59 L 54 L Respiratory Rate 25 H 21 Blood Pressure 202/86 H Pulse Oximetry 97 95 Oxygen Delivery Method Oxygen Flow Rate 11/25/22 04:00 11/25/22 04:10 11/25/22 04:10 Temperature 98.6 F 98.6 F Pulse Rate 53 L 56 L Respiratory Rate 21 19 Blood Pressure 167/76 H Pulse Oximetry 96 95 Oxygen Delivery Method Oxygen Flow Rate 11/25/22 04:30 11/25/22 05:00 11/25/22 05:30 Temperature 98.4 F 98.4 F 98.6 F Pulse Rate 51 L 52 L 49 L Respiratory Rate 20 17 22 Blood Pressure Pulse Oximetry 95 93 97 Oxygen Delivery Method Oxygen Flow Rate 11/25/22 06:00 11/25/22 06:30 11/25/22 07:00 Temperature 98.6 F 98.6 F 98.6 F Pulse Rate 50 L 50 L 50 L Respiratory Rate 19 21 21 Blood Pressure Pulse Oximetry 96 96 96 Oxygen Delivery Method Oxygen Flow Rate 11/25/22 07:30 11/25/22 07:56 11/25/22 07:56 Temperature 98.6 F 98.8 F Pulse Rate 48 L 54 L Respiratory Rate 19 16 Blood Pressure 169/81 H Pulse Oximetry 95 97 Oxygen Delivery Method Oxygen Flow Rate 11/25/22 08:00 11/25/22 08:00 11/25/22 08:08 Temperature 98.8 F Pulse Rate 53 L Respiratory Rate 22 Blood Pressure Pulse Oximetry 97 97 Oxygen Delivery Method Room Air Room Air Oxygen Flow Rate 0 11/25/22 08:12 Temperature 98.6 F Pulse Rate Respiratory Rate Blood Pressure Pulse Oximetry Oxygen Delivery Method Oxygen Flow Rate Oxygen Delivery Method Room Air Oxygen Flow Rate 0 Narrative Exam Narrative: Alert elderly male in no acute distress. Lungs are clear. Heart is regular rate and rhythm. No murmurs clicks rubs or gallops. Abdomen is benign. Extremities are normal. Neurologic exam is nonfocal all these slow with responses but much improved from last Friday. Objective Labs 11/24/22 04:15 11/25/22 04:40 Labs: Laboratory Results - last 24 hr 11/23/22 11/25/22 11/25/22 04:03 04:40 04:40 Sodium 135 L Potassium 3.6 Chloride 111 H Carbon Dioxide 18 L BUN 23 H Creatinine 0.94 Estimated GFR > 60 BUN/Creatinine Ratio 24.5 H Glucose 115 H Calcium 7.4 L Magnesium 1.9 A.calcoaceticus-baumannii cmplx PCR Not detected Bacteroides fragilis Not detected Nikki albicans (PCR) Not detected Nikki auris (PCR) Not detected C. glabrata (PCR) Not detected C. krusei (PCR) Not detected C. parapsilosis (PCR) Not detected C. tropicalis (PCR) Not detected C. neoform/gattii (PCR) Not detected Enterobacterales (PCR) Detected H E. cloacae complex PCR Not detected Enterococc faecalis PCR Not detected Enterococc faecium PCR Not detected E. coli (PCR) Detected H H. influenzae (PCR) Not detected Klebsiella aerogenes (PCR) Not detected Klebsiella oxytoca PCR Not detected Klebsiella pneumoniae Not detected List. monocytogenes PCR Not detected N. meningitidis (PCR) Not detected Proteus species (PCR) Not detected Salmonella spp. (PCR) Not detected Serratia marcescens PCR Not detected Staphylococcus sp PCR Not detected Staph aureus (PCR) Not detected mcr-1 Colistin Res Gene PCR Not detected Staph epidermidis (PCR) Not detected Staph lugdunensis PCR Not detected S. maltophilia (PCR) Not detected Streptococcus sp PCR Not detected Group A Strep (PCR) Not detected Strep agalactiae (PCR) Not detected Strep pneumoniae (PCR) Not detected P. aeruginosa (PCR) Not detected blaIMP Car res Gene PCR Not detected KPC-Carbap Res Gene PCR Not detected blaNDM Car Res Gene PCR Not detected OXA-48 Carbapenem Resis Gene (PCR) Not detected blaVIM Car Res Gene PCR Not detected CTX-M Gene Resistance (PCR) Not detected PFSH Medical History Bowel obstruction BPH w urinary obs/LUTS HTN (hypertension) Mixed hyperlipidemia Right inguinal hernia Surgical History History of skin surgery (03/27/19) History of skin surgery (04/13/19) Status post left inguinal hernia repair (~08/2022) Social History marital status: household members: spouse lives independently: Yes occupational status: previously employed Smoking Status: Never smoker alcohol intake: current substance use type: does not use Assessment & Plan Assessment & Plan narrative: Brief run of atrial fibrillation. New. Only a few beats but still present. Given this his bradycardia will obtain echo. Has not had a history of this before. He is not had any cardiology. Patient with only a brief run of atrial fibrillation. Will hold anticoagulation for now but will need to consider if any recurrence. Sepsis syndrome. Positive E coli. Pansensitive. Persistent fever. Unclear etiology. Will continue on Zosyn for the next 24 hours. If afebrile. Will switch to oral and watch for 24 hours. If has fever. Will obtain CT scan to make sure does not have abscess or some other source for persistent fevers. Bradycardia. Patient did have some ventricular escape rhythms last night. Otherwise is held his blood pressure and has not been dizzy or lightheaded. No symptoms. Will need to see principal software architect as outpatient. Unless something changes. Hallucinations. New. Not sure if this is related to medication or being in the hospital or from his sepsis. Still having some this morning. May need to consider CT scan to make sure no change. Maybe related to fever and will see how things go. No other changes. Pyelonephritis with E coli. No more flank pain. I believe this is all secondary to his urinary obstruction. Resolved with urinary catheter. Will continue to follow and continue antibiotics. Metabolic encephalopathy. Question with hallucinations. Much improved today from my observation. Will need to follow. Hypertension. Poorly controlled. Unable to add back metoprolol. Will add Norvasc and rechecked. Discussed with patient side effects. History of urinary obstruction. Continue catheterization. Will need until seen by urologist. Has procedure scheduled in the near future. Gout. Stable on current meds. Dehydration. Resolved. Seems to be doing well. Continue oral replacement. Code status. DNR. DVT prophylaxis on Lovenox. Disposition. Patient will be here at least 24 if not 48 more hours. Quality VTE Deep Vein Thrombosis/Pulmonary Embolism Present on Admission: No
[2022-11-25] MEDS: AMLODIPINE 5 MG TABLET PO ×2 (08:46→18:28)
--- NOTE | 2022-11-25 11:14 | OT.IP.TRT ---
Current Diagnoses Sepsis, unspecified organism (11/22/22) Occupational Therapy Treatment Note M2 OT-IP Current Condition Start: 11/24/22 17:10 Freq: Status: Active Protocol: Document 11/24/22 17:10 CGR (Rec: 11/24/22 17:19 CGR [id number]) Occupational Therapy Current Condition Current Condition Evaluation Date 11/24/22 Treatment Diagnosis UTI sepsis, metabolic encephalopathy Diagnosis Onset Date 11/22/22 M3 OT- IP Subjective and Pain Start: 11/24/22 17:10 Freq: Status: Active Protocol: Document 11/25/22 12:06 CGR (Rec: 11/25/22 12:12 CGR [id number]) OT- Subjective Occupational Therapy Visit Type Type Initial Evaluation Visit Start Time 10:56 Visit Stop Time 11:14 Total Visit Minutes 18 Notes Per nursing, pt just got into shower. OT Pain Assessment Pain When Pain Assessed At Rest Pain Present Pain Present Denied Pain M4 OT- IP ADL's Start: 11/24/22 17:10 Freq: Status: Active Protocol: Document 11/25/22 12:06 CGR (Rec: 11/25/22 12:12 CGR [id number]) OT [id number] Comments OT Self-Feeding Comments not meal time OT ADL-Grooming General Evaluation Grooming Ability Independent Areas Needing Assistance Combing/Brushing Hair,Face Washing Comments OT Grooming Comments brushed hair seated in the chair and washed face in the shower OT ADL-Oral Care Comments Oral Care Comments not performed OT ADL-Dressing General Eval Upper Body Dressing Ability Standby Assistance Lower Body Dressing Ability Maximum Assistance Areas Needing Assistance Socks Comments OT Dressing Comments Pt donned clean hospital gown but needed assist for socks. Pt might have been able to perform on his own but pt's offered to perform for him. OT ADL-Toileting Comments OT Toileting Comments not performed OT ADL-Bathing Bathing Type Bathing Type Shower General Evaluation Bathing Ability Standby Assistance Comments OT Bathing Comments pt agreeable to sitting for washing lower body with vc but otherwise stood in shower. M5 OT- IP IADL's Start: 11/24/22 17:10 Freq: Status: Active Protocol: Document 11/24/22 17:10 CGR (Rec: 11/24/22 17:19 CGR [id number]) OT-Instrumental Activities of Daily Living Deficits IADL Deficits Identified Deficits Home Safety Awareness Awareness of Need for Assistance at Home Decreased Awareness Ability to Problem Solve Emergency Able to Problem Solve Situations Medication Management Medication Management Caregiver Administers Money Management Money Management Caregiver Provides Assistance Meal Preparation Meal Preparation Caregiver Provides Assist Perforator Loader Perforator Loader Caregiver Provides Assist Driving Driving Comments Pt drives at baseline. M6 OT- IP Functional Cognition Start: 11/24/22 17:10 Freq: Status: Active Protocol: Document 11/24/22 17:10 CGR (Rec: 11/24/22 17:19 CGR [id number]) Cognitive Factors Limiting Selfcare Function Cognitive Ability Level of Alertness Alert Patient Orientation Name,Age,Birthday,Month,Date, Year,Day of Week,Place, Situation Attention Span Ability Capable of Focused Attention, Unable to Sustain Attention Ability to Follow Commands Able to Follow One Step Commands with Increased Time, Able to Follow One Step Commands with Repetition Cognitive Comments Cognitive Assessment Comments Pt needs extra time for processing. OT- Vision and Hearing OT- Hearing Assessment OT- Hearing Assessment Hearing Impaired OT- Vision Assessment Visual Acuity Glasses All The Time Visual Attentiveness Impaired Occular Pursuits Impaired Horizontal Visual Convergence WFL Vision Assessment Comments Pt has difficulty following and instead jumps from one side to another rather than smooth pursuits. M7 OT- IP Mobility and Balance Start: 11/24/22 17:10 Freq: Status: Active Protocol: Document 11/25/22 12:06 CGR (Rec: 11/25/22 12:12 CGR [id number]) OT-Transfer Assessment Sit to and From Stand Sit to and from Stand Standby Assistance Transfers Transfer Ability Standby Assistance Technique Transfer Technique Stand Step Pivot Devices Transfer Assistive Devices Gait Belt Comments Mobility Comments no dme OT- Balance Assessment Sitting Balance and Reactions Static Sitting Balance Ability Normal Dynamic Sitting Balance Ability Normal M8 OT- IP Objective Assessments Start: 11/24/22 17:10 Freq: Status: Active Protocol: Document 11/24/22 17:10 CGR (Rec: 11/24/22 17:19 CGR [id number]) OT Gross Range of Motion Upper Extremity Range of Motion Assessment Within Functional Limits OT Strength Upper Extremity Strength Assessment Within Functional Limits Comments Strength Comments 4+/5 OT- Coordination Assessment Upper Extremity Finger to Nose Test Within Functional Limits Finger Tapping Test Within Functional Limits OT-Muscle Tone Assessment Muscle Tone WNL Yes OT Sensation Assessment Edema Edema Absent M9 OT- IP Assessment and Plan Start: 11/24/22 17:10 Freq: Status: Active Protocol: Document 11/25/22 12:06 CGR (Rec: 11/25/22 12:12 CGR [id number]) OT Summary Assessment and Plan Potential Rehabilitation Potential Good Analytic Complexity at Evaluation Low Summary OT Impairments Functional Cognition, Functional Mobility,Grooming, Dressing,Toileting,Bathing, Toilet Transfers,Shower Transfers,Activity Tolerance Progress Towards Goals Progressing Toward Goals Assessment Summary Pt presents as a low complexity evaluation s/p admit for UTI and metabolic encephalopathy. Pt is progressing well and performed shower today with SBA in standing. Pt may benefit from 1-2 more sessions to address LB dressing and energy conservation. Goals Grooming Goal Independent Dressing Goal Independent Toileting Goal Independent Bathing Goal Independent Toilet Transfer Goal Independent Shower Transfer Goal Independent Days to Meet Goals 5 Frequency of Treatment Frequency Of Treatment Once a Day Treatment Plan OT Treatment Plan ADL Training,Functional Cognition Training,Functional Mobility,Patient/Family Education,Discharge Planning Other Treatment Recommendations and Next energy conservation, LB Treatment Focus dressing. Discharge Recommendations OT Discharge Recommendations Home with Assistance Home Equipment Needs grab bars in the bathroom, discussed with pt and . Transportation Needs at Discharge Private Vehicle
--- NOTE | 2022-11-25 12:55 | PT.IPTN ---
Current Diagnoses Sepsis, unspecified organism (11/22/22) Physical Therapy Treatment Note M2 PT-IP Current Condition Start: 11/24/22 08:21 Freq: NEEDED Status: Active Protocol: Document 11/24/22 10:31 SAK (Rec: 11/24/22 10:42 SAK [id number]) Physical Therapy Current Condition Current Condition Evaluation Date 11/24/22 Treatment Diagnosis sepsis Onset Date 11/22/22 M3 PT-IP Subjective Start: 11/24/22 08:21 Freq: NEEDED Status: Active Protocol: Document 11/25/22 13:23 TS (Rec: 11/25/22 13:41 TS [id number]) Subjective Physical Therapy Visit Type Type Treatment Note Visit Start Time 12:55 Visit Stop Time 13:15 Total Visit Minutes 20 Number of WAREHOUSEMAN Visits 1 Physical Therapy Visit Comments Patient Comments Pt reports he is feeling better and his fever has improved, agreeable to PT. Patient Goals discharge home with assistance of his M4 PT-IP Mobility and Gait Start: 11/24/22 08:21 Freq: NEEDED Status: Active Protocol: Document 11/25/22 13:23 TS (Rec: 11/25/22 13:41 TS [id number]) PT-Transfer Assessment Sit to and From Stand Sit to and from Stand Standby Assistance Equipment Transfer Assistive Device None,Gait Belt Orthotic/Prosthetic Devices or Brace: No Comments Mobility Comments Pt found resting in chair, agreeable to PT. Sit to stand no AD, slightly unsteady coming into standing, required use of arm of chair for balance. He ambulated in hallway ~400' SBA with no AD, unsteady and requires occasional use of wall for support. Pt had some SOB with gait, Spo2 97% and required standing rest break for ~15 seconds. He performed stairs x6 SBA with BUE handrail assist and step over step, no buckling or LOB. He was left back in chair with nursing tending to needs. Gait Assessment Gait Gait Assistance Required: Standby Assistance Distance (Feet) 400 Assistive Devices Assistive Device None,Gait Belt Orthotic/Prosthetic Devices or Brace: No Gait Deviations General Gait Pattern Decreased Stride Length, Decreased Feet Clearance Factors Limiting Gait Function Factors Limiting Gait Function Decreased Activity Tolerance, Poor Balance Comments Gait Comments See mobility comments. Stair Climbing Assessment Evaluation Level of Assist On Stairs Standby Assistance Devices Stair Climbing Assistive Devices Left Railing,Right Railing Technique/Endurance Stair Climbing Direction Ascend and Descend Stair Climbing Technique Step Over Step Number of Steps Climbed 6 Comments Stair Climbing Comments See mobility comments. PT-Balance Assessment Sitting Balance and Reactions Static Sitting Balance Ability Normal Dynamic Sitting Balance Ability Normal Standing Balance and Reactions Static Standing Balance Ability Good Dynamic Standing Balance Ability Good M5 PT-IP Objective Assessments Start: 11/24/22 08:21 Freq: NEEDED Status: Active Protocol: Document 11/24/22 10:31 SAK (Rec: 11/24/22 10:42 SAK [id number]) Gross Range of Motion Upper Extremity ROM Assessment Within Functional Limits Lower Extremity ROM Assessment Within Functional Limits Strength Upper Extremity Strength Assessment Within Functional Limits Lower Extremity Strength Assessment Within Functional Limits Sensation Assessment Sensation Gross Sensation WNL Muscle Tone Muscle Tone WNL Yes M6 PT-IP Treatment Start: 11/24/22 08:21 Freq: NEEDED Status: Active Protocol: Document 11/24/22 10:31 SAK (Rec: 11/24/22 10:42 SAK [id number]) Physical Therapy Treatment Exercises Exercises Ankle Pumps,Short Arc Quads M7 PT-IP Assessment and Plan Start: 11/24/22 08:21 Freq: NEEDED Status: Active Protocol: Document 11/25/22 13:23 TS (Rec: 11/25/22 13:41 TS [id number]) PT Summary Assessment and Plan Potential Rehabilitation Potential Good Summary Impairments Gait,Activity Tolerance Progress Towards Goals Progressing Toward Goals Assessment Summary Pt is progressing well with his mobility. He performed sit to stand SBA with no AD, unsteady initially in standing required use of arm of chair on R side for balance. He progressed his ambulation to ~ 400' SBA with no AD, had some SOB with gait and required a standing rest break, Spo2 97%. He occasionally uses wall support for balance during gait but has no buckling or LOB. He performed stairs x6 SBA with BUE handrail assist step over step. PT is reccomending return home with assist at this time. Goals Bed Mobility Goal Independent Transfer Goal Independent Gait Goal Independent Gait Distance 100 Days to Meet Goals 7 Frequency of Treatment Frequency Of Treatment Once a Day Treatment Plan Physical Therapy Treatment Plan Bed Mobility Training,Transfer Training,Gait Training, Therapeutic Exercise,Discharge Planning Weight Bearing Status Weight Bearing Status Full Weight Bearing Recommendations To Nursing Amount of Assist Needed Standby Assistance Discharge Recommendations PT Discharge Recommendations Home with Assistance Transportation Needs at Discharge Private Vehicle
--- NOTE | 2022-11-25 18:10 | PC.NURSE ---
Day shift: Pt A&Ox4, reports feeling well in AM. Up in chair for breakfast. BP elevated, reported to provider, new orders received. Ambulated in halls with PT (See PT note). Had shower with OT and PCT. Pt reported fatigue after lunch. BP elevated in evening, provider notified, new orders received. T max 101.1F, pt reports feeling chilled and general discomfort. PRN antipyretics administered (See MAR). Pt denies SOB, chest pain, or dizziness with elevated BP; reports feeling comfortable at this time. Call light within reach, bed alarm active, pt able to make needs known and met. Care ongoing.
[2022-11-25] MEDS: IBUPROFEN 600 MG TABLET PO (18:27)
[2022-11-25] MEDS: PSYLLIUM HUSK 1 PACKET PO (20:23)
[2022-11-26] VITALS (26 sets, daily range): BP systolic 147–188; BP diastolic 68–89; PULSE 49–77; RESP 18; TEMP 36.7–37.7; O2SAT 96–98
[2022-11-26] MEDS: PIPERACILLIN/TAZO 3.375 GM in SODIUM CHLORIDE 0.9% 100 ML IV (05:22)
[2022-11-26] MEDS: SODIUM CHLORIDE 0.9% 1,000 ML 75 ML IV (05:31)
[2022-11-26 06:54] LABS: Add Manual Diff / Slide Review NO; Basophils Absolute Auto 0 /uL (0-100); Basophils Percent Auto 0.6 % (0-2); Eosinophils Absolute Auto 100 /uL (0-450); Eosinophils Percent Auto 2.5 % (2-4); Hematocrit 33.1 % (41-53); Hemoglobin 11.1 g/dL (13.5-17.5); Lymphocytes Absolute Auto 600 /uL (1100-4500); Lymphocytes Percent Auto 10.6 % (25-40); Mean Corpuscular HGB Conc 33.6 % (30-36); Mean Corpuscular Hemoglobin 28.6 PG (26-34); Mean Corpuscular Volume 85.1 fL (80-100); Monocytes Absolute Auto 600 /uL (0-900); Monocytes Percent Auto 12.2 % (3-14); Neutrophils Absolute Auto 3900 /uL (1500-7000); Neutrophils Percent Auto 74.1 % (50-75); Platelet Count 139 X10^3/uL (150-400); Red Blood Cell Count 3.89 X10^6/uL (4.5-5.9); Red Cell Distribution Width 15.7 % (11.6-14.8); White Blood Cell Count 5.2 X10^3/uL (4.5-11.0)
[2022-11-26 07:32] LABS: Alanine Aminotransferase 120 IU/L (<50); Albumin 2.7 g/dL (3.5-5.0); Alkaline Phosphatase 278 U/L (38-126); Aspartate Aminotransferase 129 IU/L (17-59); BUN Creatinine Ratio 15.2 (6-22); Bilirubin Total 0.9 mg/dL (0.2-1.3); Blood Urea Nitrogen 15 mg/dL (9-20); Calcium 7.6 mg/dL (8.4-10.2); Carbon Dioxide 24 mmol/L (22-32); Chloride 107 mmol/L (98-107); Estimated Glomerular Filt Rate > 60 mL/min (>60); Globulin 2.8 g/dL (1.7-4.1); Glucose 96 mg/dL (80-110); HEMOLYSIS < 15 (0-50); Potassium 3.9 mmol/L (3.4-5.1); Sodium 135 mmol/L (137-145); Total Protein 5.5 g/dL (6.3-8.2)
--- NOTE | 2022-11-26 08:24 | DI.US.S_ITS ---
PROCEDURE: US ABDOMEN LIMITED INDICATIONS: hepatitis TECHNIQUE: Real-time scanning was performed of the abdominal and retroperitoneal organs, with image documentation. COMPARISON: [facility], US, US ABDOMEN LIMITED, 07/29/2022, 13:18. FINDINGS: Liver: Liver is normal in size and homogeneous in echotexture. Gallbladder: The gallbladder is normal in appearance with normal wall thickness. No gallstones. Biliary ducts: Intrahepatic bile ducts are non-dilated. Extrahepatic bile duct caliber measures 5.7 mm. Normal is 6-7 mm or less in diameter, or 10 mm or less post-cholecystectomy. IMPRESSION: Limited ultrasound of the liver, gallbladder and biliary tree is within normal limits. Dictated by: Chuy Fernandez M.D. on 11/26/2022 at 16:47 Approved by: Chuy Fernandez M.D. on 11/26/2022 at 16:49
--- NOTE | 2022-11-26 08:26 | PM.PN.1 ---
Subjective Subjective Date Patient Seen: 11/26/22 Time Patient Seen: 08:26 Interval history: Patient seen in follow-up of sepsis, fever, urinary obstruction. Patient feeling about the same today. Still does not feel like he has a lot to get up and go. Was able to ambulate yesterday and felt good doing that. Still having some visual changes hallucinations. Not as much but still present somewhat he closes his eyes right before he goes to sleep and some with his eyes open. Mostly out the window nothing in the room. There has not been any other changes. No headaches. Just not feeling great. No chest pain. Has had some mild abdominal discomfort. But nothing consistent. Nothing in the right upper quadrant. Exam Vital Signs (past 8 hours): - 11/26/22 00:30 11/26/22 00:34 11/26/22 00:34 Temperature 98.8 F 98.8 F Pulse Rate 49 L Blood Pressure 147/68 H Pulse Oximetry 11/26/22 01:00 11/26/22 01:30 11/26/22 02:00 Temperature 98.6 F 98.4 F 98.2 F Pulse Rate Blood Pressure Pulse Oximetry 11/26/22 02:30 11/26/22 03:00 11/26/22 03:30 Temperature 98.2 F 98.2 F 98.4 F Pulse Rate Blood Pressure Pulse Oximetry 11/26/22 04:00 11/26/22 04:29 11/26/22 04:29 Temperature 98.6 F 98.6 F Pulse Rate 58 L Blood Pressure 179/84 H Pulse Oximetry 96 11/26/22 04:30 Temperature 98.6 F Pulse Rate Blood Pressure Pulse Oximetry 97 Oxygen Delivery Method Room Air Oxygen Flow Rate 0 Narrative Exam Narrative: Alert elderly male in bed no acute distress actually less fatigued in appearance. Mucous membranes moist skin well hydrated no rash. HEENT exam is unremarkable neck supple without adenopathy lungs are clear heart is regular rate and rhythm abdomen is soft positive bowel sounds nontender. No hepatosplenomegaly that I can palpate. Extremities normal neurologic exam is nonfocal Objective Labs 11/26/22 06:31 11/26/22 06:31 Labs: Laboratory Results - last 24 hr 11/26/22 11/26/22 06:31 06:31 WBC 5.2 RBC 3.89 L Hgb 11.1 L Hct 33.1 L MCV 85.1 MCH 28.6 MCHC 33.6 RDW 15.7 H Plt Count 139 L Neut % (Auto) 74.1 Lymph % (Auto) 10.6 L [place] % (Auto) 12.2 Eos % (Auto) 2.5 Baso % (Auto) 0.6 Neut # (Auto) 3900 Lymph # (Auto) 600 L [place] # (Auto) 600 Eos # (Auto) 100 Baso # (Auto) 0 Sodium 135 L Potassium 3.9 Chloride 107 Carbon Dioxide 24 BUN 15 Creatinine 0.99 Estimated GFR > 60 BUN/Creatinine Ratio 15.2 Glucose 96 Calcium 7.6 L Total Bilirubin 0.9 AST 129 H ALT 120 H Alkaline Phosphatase 278 H D Total Protein 5.5 L Albumin 2.7 L Globulin 2.8 Albumin/Globulin Ratio 1.0 PFSH Medical History Bowel obstruction BPH w urinary obs/LUTS HTN (hypertension) Mixed hyperlipidemia Right inguinal hernia Surgical History History of skin surgery (03/27/19) History of skin surgery (04/13/19) Status post left inguinal hernia repair (~08/2022) Social History marital status: household members: spouse lives independently: Yes occupational status: previously employed Smoking Status: Never smoker alcohol intake: current substance use type: does not use Assessment & Plan Assessment & Plan narrative: Persistent fevers in patient with history of substance with hypovolemia and positive blood cultures and urine culture. Current bacteria we have is pansensitive. Should be well treated both current antibiotics. Patient has no real symptoms other than mild fatigue and some mild hallucinations. Slight abdominal pain. But nothing definitive on exam. Echo yesterday which was not done for evaluation of fevers did not show any valvular abnormality. Question is whether or not this could be a drug fever of some kind. I think that was less likely given the fact that he is had a fever since he came into the hospital. Possibility of an abscess is certainly possible I think he certainly has no definitive symptoms of pain in any location he does have some mild elevation of his liver enzymes today that was not present on admission. Exam is completely benign. Will obtain inflammatory markers and see if we can trend these Will obtain ultrasound to rule that out. Discussed with pharmacist and current antibiotics certainly can cause possible fevers. After discussion with pharmacist we elected for switch to Levaquin. Question whether Rocephin was effective and then initial day of treatment although really did not have a lot of time to work. Will continue to follow and re-evaluate after that. Discussed with family. Atrial fibrillation. No recurrence. Echo appears normal. Patient had a very brief run of AFib. He is had no no recurrence. I do not believe we need to be covering this individual any further with anticoagulation for this unless there is any recurrence. Currently rate control is well covered. Since he is bradycardic. Hypertension. Poorly controlled. Yesterday got 10 mg of Norvasc and topical nitroglycerin. Will add lisinopril today and hopefully can get rid of nitroglycerin will continue Norvasc for now. Unable to use beta judith which he was on in the past. Due to bradycardia. Sepsis syndrome. Secondary to pansensitive positive E coli. Seems to be resolved as far as hypotension and other issues. Do not believe hepatitis is secondary to that. Hepatitis. Etiology is unclear. Does have an elevated alk-phos. Discussed with pharmacist. Zosyn should not have an impact on his liver function. Should be more renal related. We discussed this. Will discontinue the Zosyn but will obtain ultrasound to evaluate for possible obstruction or other change. Re-evaluate a.m.. Metabolic encephalopathy with hallucinations. Patient is ambulating in otherwise normal per . Has a nonfocal exam. I think this is either medication or just being in the hospital. I do not see evidence of stroke or other changes I think central abscess would be unlikely although we may need to consider CT scan of no other sources noted with infection and fevers. Dehydration. Resolved will discontinue fluids Bradycardia. Stable without change. Actually improved rhythms Code status DNR. DVT prophylaxis on Lovenox Disposition. Actually interesting process I think he will be here at least 48 more hours but will see how things go. Certainly need improved blood pressure control and fever control prior to discharge. Discussed with family. Questions answered Quality VTE Deep Vein Thrombosis/Pulmonary Embolism Present on Admission: No
[2022-11-26 09:12] LABS: C-Reactive Protein Quant 6.9 mg/dL (<1.0)
[2022-11-26 09:29] LABS: Erythrocyte Sedimentation Rate 26 MM/HR (0-15)
[2022-11-26] MEDS: AMLODIPINE 5 MG TABLET PO (09:31)
[2022-11-26] MEDS: lisinopriL 10 MG TABLET PO ×2 (09:31→19:08)
[2022-11-26] MEDS: allopurinoL 100 MG TABLET PO (09:31)
[2022-11-26] MEDS: ATORVASTATIN 20 MG TABLET PO (09:31)
[2022-11-26] MEDS: levoFLOXacin 500 MG/100 ML PIGGYBACK 100 MG IV (09:31)
[2022-11-26] MEDS: ENOXAPARIN 40 MG/0.4 ML SYRINGE SUBCUT (09:32)
--- NOTE | 2022-11-26 10:57 | CM.DPC ---
DCP Cont: Per MD and pharmacist, pt remained afebrile and still some visual disturbances and changed IVabx and MD anticipates another 24-48hrs before pt stable for d/c. Per RN, pt was able to participate in PT and had shower and was somewhat fatigued after the ambulation and showering. Per PT/OT, recommending safe d/c home with spouse assist. Plan: SW to follow closely for plan of likely d/c home with outpt Urology f/u and spouse assist when medically stable and any further identified discharge planning needs. Mavis Downing MSW
--- NOTE | 2022-11-26 11:03 | PT.IPTN ---
Current Diagnoses Sepsis, unspecified organism (11/22/22) Physical Therapy Treatment Note M2 PT-IP Current Condition Start: 11/24/22 08:21 Freq: NEEDED Status: Active Protocol: Document 11/24/22 10:31 SAK (Rec: 11/24/22 10:42 SAK [id number]) Physical Therapy Current Condition Current Condition Evaluation Date 11/24/22 Treatment Diagnosis sepsis Onset Date 11/22/22 M3 PT-IP Subjective Start: 11/24/22 08:21 Freq: NEEDED Status: Active Protocol: Document 11/26/22 12:03 TS (Rec: 11/26/22 12:18 TS [id number]) Subjective Physical Therapy Visit Type Type Treatment Note Visit Start Time 11:03 Visit Stop Time 11:24 Total Visit Minutes 21 Number of DEPOSITION OPERATOR Visits 2 Physical Therapy Visit Comments Patient Comments Pt agreeable to PT. Patient Goals discharge home with assistance of his M4 PT-IP Mobility and Gait Start: 11/24/22 08:21 Freq: NEEDED Status: Active Protocol: Document 11/26/22 12:03 TS (Rec: 11/26/22 12:18 TS [id number]) PT-Bed Mobility Assessment Supine to Sit Supine to Sit Independent Sit to Supine Sit to Supine Independent Scooting Scooting to Edge of Bed Independent Scooting Up and Down in Bed Independent PT-Transfer Assessment Sit to and From Stand Sit to and from Stand Standby Assistance Equipment Transfer Assistive Device None,Gait Belt Orthotic/Prosthetic Devices or Brace: No Comments Mobility Comments Supine to sit Ind with HOB elevated and BUE support for uprighting trunk. Sit to stand SBA with no AD, slightly unsteady required use of bed rail for balance. He ambulated in hallway ~400' SBA with no AD, required ~1min standing rest break after ~200' of gait . He performed stairs x3 SBA with bilateral handrail assist step over step with no buckling or LOB. Sit to supine back into bed Ind, pt managed own IV line. He was left in bed with call light nearby, all needs met. Gait Assessment Gait Gait Assistance Required: Standby Assistance Distance (Feet) 400 Able to Maintain Weight Bearing Status Yes During Gait Assistive Devices Assistive Device None,Gait Belt Orthotic/Prosthetic Devices or Brace: No Gait Deviations General Gait Pattern Decreased Stride Length, Decreased Feet Clearance Factors Limiting Gait Function Factors Limiting Gait Function Decreased Activity Tolerance, Poor Balance Comments Gait Comments See mobility comments. Stair Climbing Assessment Evaluation Level of Assist On Stairs Standby Assistance Devices Stair Climbing Assistive Devices Left Railing,Right Railing Technique/Endurance Stair Climbing Direction Ascend and Descend Stair Climbing Technique Step Over Step Number of Steps Climbed 3 Comments Stair Climbing Comments See mobility comments. PT-Balance Assessment Sitting Balance and Reactions Static Sitting Balance Ability Normal Dynamic Sitting Balance Ability Normal Standing Balance and Reactions Static Standing Balance Ability Good Dynamic Standing Balance Ability Good M5 PT-IP Objective Assessments Start: 11/24/22 08:21 Freq: NEEDED Status: Active Protocol: Document 11/24/22 10:31 SAK (Rec: 11/24/22 10:42 SAK [id number]) Gross Range of Motion Upper Extremity ROM Assessment Within Functional Limits Lower Extremity ROM Assessment Within Functional Limits Strength Upper Extremity Strength Assessment Within Functional Limits Lower Extremity Strength Assessment Within Functional Limits Sensation Assessment Sensation Gross Sensation WNL Muscle Tone Muscle Tone WNL Yes M6 PT-IP Treatment Start: 11/24/22 08:21 Freq: NEEDED Status: Active Protocol: Document 11/24/22 10:31 SAK (Rec: 11/24/22 10:42 [facility] [id number]) Physical Therapy Treatment Exercises Exercises Ankle Pumps,Short Arc Quads M7 PT-IP Assessment and Plan Start: 11/24/22 08:21 Freq: NEEDED Status: Active Protocol: Document 11/26/22 12:03 TS (Rec: 11/26/22 12:18 TS [id number]) PT Summary Assessment and Plan Potential Rehabilitation Potential Good Summary Impairments Gait,Activity Tolerance Progress Towards Goals Progressing Toward Goals Assessment Summary Pt is Ind with all bed mobility and SBA for out of bed mobility. He he performed sit to stand x1 with SBA with no AD. He is slightly unsteady coming into standing and requires bed rail for balance initially. He continues to ambulate ~400' SBA with no AD, can manage own lines. He did require a standing rest break after ~200' for ~1min resting on wall. He performed stairs x3 with bilateral handrail assist with no buckling or LOB . PT continues to recommend return home with assist at this time. Goals Bed Mobility Goal Independent Transfer Goal Independent Gait Goal Independent Gait Distance 100 Days to Meet Goals 7 Frequency of Treatment Frequency Of Treatment Once a Day Treatment Plan Physical Therapy Treatment Plan Bed Mobility Training,Transfer Training,Gait Training, Therapeutic Exercise,Discharge Planning Weight Bearing Status Weight Bearing Status Full Weight Bearing Recommendations To Nursing Amount of Assist Needed Standby Assistance Discharge Recommendations PT Discharge Recommendations Home with Assistance Transportation Needs at Discharge Private Vehicle
--- NOTE | 2022-11-26 15:55 | OT.IP.TRT ---
Current Diagnoses Sepsis, unspecified organism (11/22/22) Occupational Therapy Treatment Note M2 OT-IP Current Condition Start: 11/24/22 17:10 Freq: Status: Active Protocol: Document 11/24/22 17:10 CGR (Rec: 11/24/22 17:19 CGR [id number]) Occupational Therapy Current Condition Current Condition Evaluation Date 11/24/22 Treatment Diagnosis UTI sepsis, metabolic encephalopathy Diagnosis Onset Date 11/22/22 M3 OT- IP Subjective and Pain Start: 11/24/22 17:10 Freq: Status: Active Protocol: Document 11/26/22 15:40 [facility] (Rec: 11/26/22 16:02 [facility] [id number]) OT- Subjective Occupational Therapy Visit Type Visit Start Time 15:40 Visit Stop Time 15:52 Total Visit Minutes 12 Occupational Therapy Visit Comments Patient Comments Pt not wanting to shower as showered yesterday.Pt agreed to do cognitive assessment. Patient/Caregiver Goals TO go home. OT Pain Assessment Pain When Pain Assessed At Rest Pain Present Pain Present Denied Pain M6 OT- IP Functional Cognition Start: 11/24/22 17:10 Freq: Status: Active Protocol: Document 11/26/22 15:40 [facility] (Rec: 11/26/22 16:02 [facility] [id number]) Cognitive Factors Limiting Selfcare Function Cognitive Ability Level of Alertness Alert Patient Orientation Name,Place,Situation Attention Span Ability Capable of Focused Attention, Capable of Sustained Attention Ability to Follow Commands Able to Follow One Step Commands Memory Description Working Impaired Executive Function Ability Unable to Organize Plans, Unable to Remember Details Cognitive Comments Cognitive Assessment Comments Pt still stating feels that he is not thinking well. Pt not able to complete [place] Making Part B and not remembering to switch between numbers and letters and forgetting what comes next. Pt performance implied severe deficits with visual attention, speed of processing, task switching, mental flexibility, and executive functioning. Pt's cognition may still be impacted from his UTI and sepsis. Pt agreed that he will not be driving at this time. To continue to monitor his cognition as he medically improves. M9 OT- IP Assessment and Plan Start: 11/24/22 17:10 Freq: Status: Active Protocol: Document 11/26/22 15:40 [facility] (Rec: 11/26/22 16:02 [facility] [id number]) OT Summary Assessment and Plan Potential Rehabilitation Potential Good Analytic Complexity at Evaluation Low Summary OT Impairments Functional Cognition, Functional Mobility,Grooming, Dressing,Toileting,Bathing, Toilet Transfers,Shower Transfers,Activity Tolerance Progress Towards Goals Progressing Toward Goals,Slow Progress due to Cognition Assessment Summary Able to go over energy conservation strategies with pt and assess his cognition. Pt not able to complete the task and having difficulty to switch from numbers to letters on [place] Making Part B. Pt's cognition may still be impacted by his UTI. Pt to go home with his to assist when medically stable. Goals Grooming Goal Independent Dressing Goal Independent Toileting Goal Independent Bathing Goal Independent Toilet Transfer Goal Independent Shower Transfer Goal Independent Days to Meet Goals 4 Frequency of Treatment Frequency Of Treatment Once a Day Treatment Plan OT Treatment Plan ADL Training,Functional Cognition Training,Functional Mobility,Patient/Family Education,Discharge Planning Other Treatment Recommendations and Next reassess [place] Making Part B Treatment Focus Discharge Recommendations OT Discharge Recommendations Home with Assistance Home Equipment Needs grab bars in the bathroom, discussed with pt and . Transportation Needs at Discharge Private Vehicle
[2022-11-26] MEDS: PSYLLIUM HUSK 1 PACKET PO (20:11)
[2022-11-27] VITALS (8 sets, daily range): BP systolic 101–176; BP diastolic 58–88; PULSE 63–93; RESP 16–18; TEMP 35.8–37.1; O2SAT 92–99
[2022-11-27 05:00] LABS: Add Manual Diff / Slide Review NO; Basophils Absolute Auto 0 /uL (0-100); Basophils Percent Auto 0.6 % (0-2); Eosinophils Absolute Auto 100 /uL (0-450); Eosinophils Percent Auto 2.4 % (2-4); Hemoglobin 11.6 g/dL (13.5-17.5); Lymphocytes Absolute Auto 900 /uL (1100-4500); Lymphocytes Percent Auto 20.4 % (25-40); Mean Corpuscular Hemoglobin 28.7 PG (26-34); Mean Corpuscular Volume 84.4 fL (80-100); Monocytes Absolute Auto 600 /uL (0-900); Monocytes Percent Auto 15.2 % (3-14); Neutrophils Absolute Auto 2600 /uL (1500-7000); Neutrophils Percent Auto 61.4 % (50-75); Platelet Count 164 X10^3/uL (150-400); Red Blood Cell Count 4.03 X10^6/uL (4.5-5.9); Red Cell Distribution Width 15.7 % (11.6-14.8); White Blood Cell Count 4.2 X10^3/uL (4.5-11.0)
[2022-11-27 05:08] LABS: Alanine Aminotransferase 186 IU/L (<50); Albumin 2.9 g/dL (3.5-5.0); Albumin Globulin Ratio 1.1 (1.0-2.8); Alkaline Phosphatase 334 U/L (38-126); Aspartate Aminotransferase 192 IU/L (17-59); BUN Creatinine Ratio 15.7 (6-22); Bilirubin Total 0.7 mg/dL (0.2-1.3); Blood Urea Nitrogen 13 mg/dL (9-20); Calcium 7.9 mg/dL (8.4-10.2); Carbon Dioxide 28 mmol/L (22-32); Chloride 105 mmol/L (98-107); Estimated Glomerular Filt Rate > 60 mL/min (>60); Globulin 2.7 g/dL (1.7-4.1); Glucose 104 mg/dL (80-110); HEMOLYSIS < 15 (0-50); Potassium 3.4 mmol/L (3.4-5.1); Sodium 136 mmol/L (137-145); Total Protein 5.6 g/dL (6.3-8.2)
[2022-11-27] MEDS: levoFLOXacin 500 MG/100 ML PIGGYBACK 100 MG IV (08:46)
[2022-11-27] MEDS: ATORVASTATIN 20 MG TABLET PO (08:48)
[2022-11-27] MEDS: PSYLLIUM HUSK 1 PACKET PO ×2 (08:48→21:46)
[2022-11-27] MEDS: ENOXAPARIN 40 MG/0.4 ML SYRINGE SUBCUT (08:48)
[2022-11-27] MEDS: lisinopriL 10 MG TABLET PO (08:49)
[2022-11-27] MEDS: AMLODIPINE 5 MG TABLET PO (08:49)
[2022-11-27] MEDS: allopurinoL 100 MG TABLET PO (08:50)
[2022-11-27] MEDS: POTASSIUM CHLORIDE 20 MEQ TAB 40 MEQ PO ×2 (10:50→16:16)
--- NOTE | 2022-11-27 11:53 | PT.IPTN ---
Current Diagnoses Sepsis, unspecified organism (11/22/22) Physical Therapy Treatment Note M2 PT-IP Current Condition Start: 11/24/22 08:21 Freq: NEEDED Status: Active Protocol: Document 11/24/22 10:31 SAK (Rec: 11/24/22 10:42 SAK [id number]) Physical Therapy Current Condition Current Condition Evaluation Date 11/24/22 Treatment Diagnosis sepsis Onset Date 11/22/22 M3 PT-IP Subjective Start: 11/24/22 08:21 Freq: NEEDED Status: Active Protocol: Document 11/27/22 11:44 ES (Rec: 11/27/22 11:53 ES [id number]) Subjective Physical Therapy Visit Type Type Treatment Note Visit Start Time 11:09 Visit Stop Time 11:42 Total Visit Minutes 33 Number of BUSINESS BANKING OFFICER Visits 0 Physical Therapy Visit Comments Patient Comments Patient alert in bed, agreeable to work with PT. Patient Goals discharge home with assistance of his M4 PT-IP Mobility and Gait Start: 11/24/22 08:21 Freq: NEEDED Status: Active Protocol: Document 11/27/22 11:44 ES (Rec: 11/27/22 11:53 ES [id number]) PT-Bed Mobility Assessment Supine to Sit Supine to Sit Independent PT-Transfer Assessment Sit to and From Stand Sit to and from Stand Standby Assistance Equipment Transfer Assistive Device Gait Belt Transfers Transfer Destination Chair,Toilet Transfer Technique Ambulated Transfer Ability Level of Assist Standby Assistance Comments Mobility Comments Patient initially unsteady when standing from bed, though denied lightheadedness/ dizziness. Cued for appropriate positioning/ management of catheter bag and line. Gait Assessment Gait Gait Assistance Required: Standby Assistance Distance (Feet) 650 Assistive Devices Assistive Device Gait Belt,Straight Cane Gait Deviations General Gait Pattern Decreased Stride Length, Decreased Feet Clearance Factors Limiting Gait Function Factors Limiting Gait Function Poor Balance Comments Gait Comments Initially attempted without AD but patient had LOB when turning out of room, steadied himself by reaching for furniture/wall. Recommended patient use SPC due to unsteadiness; continued ambulating with SPC without LOB. Cued patient for sequencing using SPC. Stair Climbing Assessment Evaluation Level of Assist On Stairs Standby Assistance Devices Stair Climbing Assistive Devices Straight Cane,Right Railing Technique/Endurance Stair Climbing Direction Ascend and Descend Stair Climbing Technique Step Over Step Number of Steps Climbed 3 Stair Climbing Set # Repetitions (reps) 3 Comments Stair Climbing Comments Performed x3 for strengthening . Cued for sequencing/ placement of SPC on stair vs hovering over step for better balance. M5 PT-IP Objective Assessments Start: 11/24/22 08:21 Freq: NEEDED Status: Active Protocol: Document 11/24/22 10:31 SAK (Rec: 11/24/22 10:42 SAK [id number]) Gross Range of Motion Upper Extremity ROM Assessment Within Functional Limits Lower Extremity ROM Assessment Within Functional Limits Strength Upper Extremity Strength Assessment Within Functional Limits Lower Extremity Strength Assessment Within Functional Limits Sensation Assessment Sensation Gross Sensation WNL Muscle Tone Muscle Tone WNL Yes M6 PT-IP Treatment Start: 11/24/22 08:21 Freq: NEEDED Status: Active Protocol: Document 11/24/22 10:31 SAK (Rec: 11/24/22 10:42 SAK [id number]) Physical Therapy Treatment Exercises Exercises Ankle Pumps,Short Arc Quads M7 PT-IP Assessment and Plan Start: 11/24/22 08:21 Freq: NEEDED Status: Active Protocol: Document 11/27/22 11:44 ES (Rec: 11/27/22 11:53 ES [id number]) PT Summary Assessment and Plan Summary Impairments Gait,Activity Tolerance Progress Towards Goals Progressing Toward Goals Assessment Summary Patient demonstrated improved balance with use of SPC; recommend he use cane/trekking pole at home for safety at least initially. Patient was fatigued with repetition of stairs. He will benefit from further PT to increase strength and balance and for safety education to increase independence and decrease fall risk with functional mobility . Gait goal upgraded this visit; see below. Goals Bed Mobility Goal Independent Transfer Goal Independent Gait Goal Independent,Cane Gait Distance 800 ft Other Goals Patient will ascend/descend 3 stairs with SPC and single rail without cues for sequencing. Days to Meet Goals 7 Frequency of Treatment Frequency Of Treatment Once a Day Treatment Plan Physical Therapy Treatment Plan Transfer Training,Gait Training,Therapeutic Exercise, Discharge Planning Weight Bearing Status Weight Bearing Status Full Weight Bearing Recommendations To Nursing Amount of Assist Needed Standby Assistance Discharge Recommendations PT Discharge Recommendations Home with Assistance Transportation Needs at Discharge Private Vehicle
--- NOTE | 2022-11-27 11:58 | PC.NURSE ---
I agree with all interventions and charting by GARCIA Castillo on 11/27/22
--- NOTE | 2022-11-27 13:20 | OT.IP.TRT ---
Current Diagnoses Sepsis, unspecified organism (11/22/22) Occupational Therapy Treatment Note M2 OT-IP Current Condition Start: 11/24/22 17:10 Freq: Status: Active Protocol: Document 11/24/22 17:10 CGR (Rec: 11/24/22 17:19 CGR [id number]) Occupational Therapy Current Condition Current Condition Evaluation Date 11/24/22 Treatment Diagnosis UTI sepsis, metabolic encephalopathy Diagnosis Onset Date 11/22/22 M3 OT- IP Subjective and Pain Start: 11/24/22 17:10 Freq: Status: Active Protocol: Document 11/27/22 13:20 CCC (Rec: 11/27/22 14:07 [facility] [id number]) OT- Subjective Occupational Therapy Visit Type Type Treatment Note Visit Start Time 13:20 Visit Stop Time 13:40 Total Visit Minutes 20 Occupational Therapy Visit Comments Patient Comments Pt's in the room. Patient/Caregiver Goals To go home. M7 OT- IP Mobility and Balance Start: 11/24/22 17:10 Freq: Status: Active Protocol: Document 11/27/22 13:20 [facility] (Rec: 11/27/22 14:07 [facility] [id number]) OT-Transfer Assessment Sit to and From Stand Sit to and from Stand Standby Assistance Transfers Transfer Ability Standby Assistance,Contact Guard Assistance Technique Transfer Destination Chair Transfer Technique Stand Step Pivot Comments Mobility Comments Pt SBA to stand and needing CGA for balance as recliner chair not fully locked. Pt tends to furniture cruise while getting to the bathroom. Emphasized to pt not to get up and to have staff there. Able to tell nursing staff that pt states has been using the bathroom on his own and is a fall risk. OT- Balance Assessment Sitting Balance and Reactions Static Sitting Balance Ability Normal Dynamic Sitting Balance Ability Normal Standing Balance and Reactions Static Standing Balance Ability Good Dynamic Standing Balance Ability Fair M8 OT- IP Objective Assessments Start: 11/24/22 17:10 Freq: Status: Active Protocol: Document 11/24/22 17:10 CGR (Rec: 11/24/22 17:19 CGR [id number]) OT Gross Range of Motion Upper Extremity Range of Motion Assessment Within Functional Limits OT Strength Upper Extremity Strength Assessment Within Functional Limits Comments Strength Comments 4+/5 OT- Coordination Assessment Upper Extremity Finger to Nose Test Within Functional Limits Finger Tapping Test Within Functional Limits OT-Muscle Tone Assessment Muscle Tone WNL Yes OT Sensation Assessment Edema Edema Absent M9 OT- IP Assessment and Plan Start: 11/24/22 17:10 Freq: Status: Active Protocol: Document 11/27/22 13:20 [facility] (Rec: 11/27/22 14:07 [facility] [id number]) OT Summary Assessment and Plan Potential Rehabilitation Potential Good Analytic Complexity at Evaluation Low Summary OT Impairments Functional Cognition, Functional Mobility,Grooming, Dressing,Toileting,Bathing, Toilet Transfers,Shower Transfers,Activity Tolerance Progress Towards Goals Slow Progress due to Medical Issues,Slow Progress due to Cognition Assessment Summary Able to go over possible equipment needs for safety at home, grab bar for shower versus transfer pole and shower chair. Able to talk to pt of use of paper and pen to help with his memory especially while here in the hospital. Pt's present for OT session and has good awareness to be able to assist the pt when medically stable. Pt not wanting to redo the cognitive assessment today. Goals Grooming Goal Independent Dressing Goal Independent Toileting Goal Independent Bathing Goal Independent Toilet Transfer Goal Independent Shower Transfer Goal Independent Days to Meet Goals 4 Frequency of Treatment Frequency Of Treatment Once a Day Treatment Plan OT Treatment Plan ADL Training,Functional Cognition Training,Functional Mobility,Patient/Family Education,Discharge Planning Other Treatment Recommendations and Next reassess [place] [facility] Part B Treatment Focus Discharge Recommendations OT Discharge Recommendations Home with Assistance Home Equipment Needs shower chair and grab bars in the bathroom, discussed with pt and . Transportation Needs at Discharge Private Vehicle
--- NOTE | 2022-11-27 14:21 | PM.PN.1 ---
Subjective Subjective Date Patient Seen: 11/27/22 Time Patient Seen: 10:00 Interval history: CC: sepsis and UTI Feeling tentatively better today, infection seems to be subsiding doing ok on levaquin WBCs normalizing able to nibble at food but appetite not great reports able to get to bathroom. Blood pressure improving still have not restarted home BB I think tomorrow maybe. General improvement noted continue to mobilize and feed aggressively. Exam Vital Signs (past 8 hours): - 11/27/22 07:58 11/27/22 08:49 11/27/22 07:00 Temperature 98.7 F Pulse Rate 63 93 H Respiratory Rate 16 Blood Pressure 172/81 H 172/81 H Pulse Oximetry 96 Oxygen Delivery Method Room Air Oxygen Flow Rate 0 11/27/22 07:00 11/27/22 11:51 Temperature 96.4 F L Pulse Rate 76 Respiratory Rate 17 Blood Pressure 101/58 L Pulse Oximetry 95 Oxygen Delivery Method Room Air Oxygen Flow Rate 0 Oxygen Delivery Method Room Air Oxygen Flow Rate 0 Narrative Exam Narrative: cheerful alert sitting up denies hallucinations at present Resp Auscultation: clear to auscultation bilaterally Cardio Rate: bradycardic Other: occasional dropped beats, S1/S2 GI Other: soft nontender active bowel sounds Neuro General: patient alert, patient awake and patient oriented x3 Extrem General: no pedal edema Objective Labs 11/27/22 04:35 11/27/22 04:35 Labs: Laboratory Results - last 24 hr 11/27/22 11/27/22 04:35 04:35 WBC 4.2 L RBC 4.03 L Hgb 11.6 L Hct 34.0 L MCV 84.4 MCH 28.7 MCHC 34.0 RDW 15.7 H Plt Count 164 Neut % (Auto) 61.4 Lymph % (Auto) 20.4 L Edwards % (Auto) 15.2 H Eos % (Auto) 2.4 Baso % (Auto) 0.6 Neut # (Auto) 2600 Lymph # (Auto) 900 L Edwards # (Auto) 600 Eos # (Auto) 100 Baso # (Auto) 0 Sodium 136 L Potassium 3.4 Chloride 105 Carbon Dioxide 28 BUN 13 Creatinine 0.83 Estimated GFR > 60 BUN/Creatinine Ratio 15.7 Glucose 104 Calcium 7.9 L Total Bilirubin 0.7 AST 192 H ALT 186 H Alkaline Phosphatase 334 H Total Protein 5.6 L Albumin 2.9 L Globulin 2.7 Albumin/Globulin Ratio 1.1 PFSH Medical History Bowel obstruction BPH w urinary obs/LUTS HTN (hypertension) Mixed hyperlipidemia Right inguinal hernia Surgical History History of skin surgery (03/27/19) History of skin surgery (04/13/19) Status post left inguinal hernia repair (~08/2022) Social History marital status: household members: spouse lives independently: Yes occupational status: previously employed Smoking Status: Never smoker alcohol intake: current substance use type: does not use Assessment & Plan Assessment & Plan narrative: Ongoing infection seems to be treated at this point. Clinical picture improving. #Atrial fibrillation? One brief episode while ill, no recurrence, normal echo, agree hold AC monitor #Hypertension Pressure improving today but BP still low. Doing ok on lisinopril and norvasc for now. Takes low dose metoprolol succ at home may resume tomorrow- maybe thiazide instead? #Sepsis syndrome secondary to pansensitive E coli bacteremia Seems to be resolved continue levaquin monitor #Hepatitis with new moderately elevated LFTs. Etiology is unclear after imaging and changing meds LFTs still floated up a bit. If still elevating tomorrow will get CT. #Metabolic encephalopathy with hallucinations.? Seems to be improved. Med toxicity vs ICU delirium vs ?? #Dehydration s/p aggressive IV hydration, kidney function stabilizing well back on oral fluids #Bradycardia Doing ok will consider BB vs thiazide. continue to monitor. Code status DNR.? DVT prophylaxis on Lovenox Disposition:? depends how his labs go- possibly home with HH Severity: Really complex situation with several organ systems in failure modes. He is trending up but there is a lot going on here. Time spent: 60min Quality VTE Deep Vein Thrombosis/Pulmonary Embolism Present on Admission: No
[2022-11-27] MEDS: MAGNESIUM HYDROXIDE 30 ML UDC PO (16:16)
--- NOTE | 2022-11-27 16:59 | PC.NURSE ---
Spoke with nurse coordinator and was told that patient will be discharged with Waters catheter and will follow-up outpatient for Waters management. RN did not remove based on this instruction.
[2022-11-28 04:00] VITALS: BP 200/93; PULSE 64; RESP 16; TEMP 36.1; O2SAT 98
[2022-11-28 05:00] VITALS: BP 200/93; PULSE 61
[2022-11-28] MEDS: NITROGLYCERIN OINT 1 INCH/GM OINT...G. 0.5 INCH TOP (05:00)
[2022-11-28 05:03] LABS: Add Manual Diff / Slide Review NO; Basophils Absolute Auto 0 /uL (0-100); Basophils Percent Auto 0.6 % (0-2); Eosinophils Absolute Auto 200 /uL (0-450); Eosinophils Percent Auto 3.3 % (2-4); Hematocrit 33.9 % (41-53); Hemoglobin 11.5 g/dL (13.5-17.5); Lymphocytes Absolute Auto 1300 /uL (1100-4500); Lymphocytes Percent Auto 20.6 % (25-40); Mean Corpuscular HGB Conc 33.8 % (30-36); Mean Corpuscular Hemoglobin 28.6 PG (26-34); Mean Corpuscular Volume 84.5 fL (80-100); Monocytes Absolute Auto 900 /uL (0-900); Monocytes Percent Auto 13.9 % (3-14); Neutrophils Absolute Auto 3800 /uL (1500-7000); Neutrophils Percent Auto 61.6 % (50-75); Platelet Count 196 X10^3/uL (150-400); Red Blood Cell Count 4.01 X10^6/uL (4.5-5.9); Red Cell Distribution Width 15.5 % (11.6-14.8); White Blood Cell Count 6.2 X10^3/uL (4.5-11.0)
[2022-11-28 05:19] LABS: Alanine Aminotransferase 181 IU/L (<50); Albumin 2.9 g/dL (3.5-5.0); Albumin Globulin Ratio 1.1 (1.0-2.8); Alkaline Phosphatase 323 U/L (38-126); Aspartate Aminotransferase 146 IU/L (17-59); Bilirubin Total 0.7 mg/dL (0.2-1.3); Blood Urea Nitrogen 16 mg/dL (9-20); Calcium 7.9 mg/dL (8.4-10.2); Carbon Dioxide 28 mmol/L (22-32); Chloride 103 mmol/L (98-107); Estimated Glomerular Filt Rate > 60 mL/min (>60); Globulin 2.6 g/dL (1.7-4.1); Glucose 96 mg/dL (80-110); HEMOLYSIS < 15 (0-50); Sodium 136 mmol/L (137-145); Total Protein 5.5 g/dL (6.3-8.2)
[2022-11-28 08:00] VITALS: BP 174/83; PULSE 56; RESP 18; TEMP 36.3; O2SAT 96
[2022-11-28 08:23] VITALS: BP 174/83; PULSE 62
[2022-11-28] MEDS: ENOXAPARIN 40 MG/0.4 ML SYRINGE SUBCUT (08:23)
[2022-11-28] MEDS: lisinopriL 10 MG TABLET PO ×2 (08:23→09:32)
[2022-11-28] MEDS: AMLODIPINE 5 MG TABLET PO (08:23)
[2022-11-28] MEDS: PSYLLIUM HUSK 1 PACKET PO (08:23)
[2022-11-28] MEDS: ATORVASTATIN 20 MG TABLET PO (08:23)
[2022-11-28] MEDS: allopurinoL 100 MG TABLET PO (08:23)
[2022-11-28] MEDS: levoFLOXacin 500 MG/100 ML PIGGYBACK 100 MG IV (08:23)
[2022-11-28 09:07] VITALS: O2SAT 96
[2022-11-28 09:32] VITALS: BP 174/83; PULSE 67
[2022-11-28] MEDS: hydroCHLOROthiazide 25 MG TABLET PO (09:32)
--- NOTE | 2022-11-28 10:24 | PM.DS.1 ---
History of Present Illness History of Present Illness Date Patient Seen: 11/28/22 Time Patient Seen: 09:30 Chief complaint: fever/High BP Narrative: chief complaint: UTI/hypertension/obstruction Feeling much better today he is up and had a good BM, eating, feeling generally more like himself, agrees. He will go home with home health, will continue the urinary catheter until he see urology in [facility] for stricture procedure in 2 weeks. Will complete two more days of antibiotics on levaquin PO. Will swap out metoprolol for amlodipine/lisinopril/hctz. F/up with my office next week. Discharge Providers Provider Date of admission: 11/22/22 16:21 Discharge Date: 11/28/22 Primary care physician: Uvaldo Katz MD Consults: 11/22/22 19:15 Consult to Discharge Planning Routine Comment: Consult to Occupational Therapy Evaluate & Treat Comment: Physician Instructions: Evaluate and treat Consult to Physical Therapy Evaluate & Treat Comment: Physician Instructions: Evaluate and Treat Discharge provider: Uvaldo Katz MD Summary Hospital Course Discharge Diagnosis: #Atrial fibrillation? #Urinary obstruction #urethral stricture #Hypertension #Sepsis syndrome secondary to pansensitive E coli bacteremia #Moderately elevated LFTs. #Metabolic encephalopathy with hallucinations.? #Dehydration #Bradycardia Hospital Course: Pt presented to ED with very high persistent fevers in patient with history of urinary obstruction with hypovolemia and positive e coli blood cultures and urine culture.? Pt generally did well with high fevers mild fatigue and some mild hallucinations.? Slight abdominal pain but nothing definitive on exam.?Elevated LFTs with imaging was generally negative and he required several antibiotics adjustments before a safe treatment could be figured out. ? Doing well by day of discharge will complete levaquin course. He also had some issues with bradycardia that necessitated changes to his BP meds. Good family support noted. Status at Discharge Cognitive/behavioral status at discharge: at baseline, oriented Functional status at discharge: uses cane/walker Overall status at discharge: patient is progressing back to baseline Exam Vital Signs (past 8 hours): - 11/28/22 04:00 11/28/22 05:00 11/28/22 08:00 Temperature 97.0 F L 97.3 F L Pulse Rate 64 61 56 L Respiratory Rate 16 18 Blood Pressure 200/93 H 200/93 H 174/83 H Pulse Oximetry 98 96 Oxygen Delivery Method Oxygen Flow Rate 0 0 11/28/22 08:23 11/28/22 09:32 11/28/22 09:07 Temperature Pulse Rate 62 67 Respiratory Rate Blood Pressure 174/83 H 174/83 H Pulse Oximetry 96 Oxygen Delivery Method Room Air Oxygen Flow Rate 0 Oxygen Delivery Method Room Air Oxygen Flow Rate 0 Narrative Exam Narrative: alert sitting up in chair Resp Auscultation: clear to auscultation bilaterally Cardio Rate: regular rate Rhythm: regular rhythm Heart Sounds: S1 normal and S2 normal GI Auscultation: normal bowel sounds Other: soft nontender Neuro General: patient alert, patient awake, patient oriented x3 and moves all extremities Objective Labs 11/28/22 04:35 11/28/22 04:35 Labs: Laboratory Results - last 24 hr 11/28/22 11/28/22 04:35 04:35 WBC 6.2 RBC 4.01 L Hgb 11.5 L Hct 33.9 L MCV 84.5 MCH 28.6 MCHC 33.8 RDW 15.5 H Plt Count 196 Neut % (Auto) 61.6 Lymph % (Auto) 20.6 L [place] % (Auto) 13.9 Eos % (Auto) 3.3 Baso % (Auto) 0.6 Neut # (Auto) 3800 Lymph # (Auto) 1300 [place] # (Auto) 900 Eos # (Auto) 200 Baso # (Auto) 0 Sodium 136 L Potassium 4.0 Chloride 103 Carbon Dioxide 28 BUN 16 Creatinine 0.84 Estimated GFR > 60 BUN/Creatinine Ratio 19.0 Glucose 96 Calcium 7.9 L Total Bilirubin 0.7 AST 146 H ALT 181 H Alkaline Phosphatase 323 H Total Protein 5.5 L Albumin 2.9 L Globulin 2.6 Albumin/Globulin Ratio 1.1 [facility] Medical History Bowel obstruction BPH w urinary obs/LUTS HTN (hypertension) Mixed hyperlipidemia Right inguinal hernia Surgical History History of skin surgery (03/27/19) History of skin surgery (04/13/19) Status post left inguinal hernia repair (~08/2022) Social History marital status: household members: spouse lives independently: Yes occupational status: previously employed Smoking Status: Never smoker alcohol intake: current substance use type: does not use Discharge Assessment & Plan Assessment and Plan Assessment: #Atrial fibrillation? One brief episode while ill, no recurrence, normal echo, agree hold AC, monitor #Urinary obstruction #urethral stricture Pt has known urethral stricture - had been self-cathing and planning to get it addressed with urology in [place] - will contact them to get that set up for two weeks after d/c - continue stein on d/c for now #Hypertension Due to low HR episodes and age will stop BB on discharge and go out on amlodipine and lisinopril/hctz- will f/up as outpt. #Sepsis syndrome secondary to pansensitive E coli bacteremia Seems to be resolved continue levaquin 500 2 more days #Moderately elevated LFTs. Seems to be 2/2 recent use of tylenol during high fevers, they have plateaued today, consider recheck on outpt f/up. #Metabolic encephalopathy with hallucinations.? Seems to be improved. Med toxicity vs ICU delirium vs ?? #Dehydration s/p aggressive IV hydration, kidney function stabilized back on oral fluids #Bradycardia Doing ok stop beta judith Code status DNR.? DVT prophylaxis on Lovenox Disposition:?home with HH Time spent: 40min Discharge Plan Discharge Plan Patient Disposition: Home Health Service Discharge orders & Medications Prescriptions: New lisinopril 20 mg Tablet 20 mg PO DAILY Qty: 30 0RF amlodipine [Norvasc] 5 mg Tablet 5 mg PO DAILY Qty: 30 0RF hydrochlorothiazide 25 mg Tablet 25 mg PO DAILY Qty: 30 0RF levofloxacin 250 mg Tablet 750 mg PO 0700 Qty: 2 0RF Continued allopurinol 100 mg tablet 100 mg PO DAILY atorvastatin 20 mg tablet 20 mg PO DAILY Fiber (psyllium husk-sugar) 3.4 gram/7 gram powder 1 tbsp PO BID Qty: 822 0RF Discontinued metoprolol succinate 50 mg tablet extended release 24 hr 50 mg PO DAILY Patient Comments: Pt reports Temp Hold Follow up/Referrals: Uvaldo Katz MD [Primary Care Provider] - Visit Report/Discharge Packet Instructions: How to Care for Your Stein Catheter -- Male, DI for High Blood Pressure Stand Alone Forms: Patient Portal/API, Stroke Signs & Symptoms Discharge Data Primary Care Provider: Uvaldo Katz Discharges patient from system. Discharge Date/Time: 11/28/22 11:25 Quality VTE Deep Vein Thrombosis/Pulmonary Embolism Present on Admission: No
--- NOTE | 2022-11-28 10:45 | PT.IPTN ---
Current Diagnoses Sepsis, unspecified organism (11/22/22) Physical Therapy Treatment Note M2 PT-IP Current Condition Start: 11/24/22 08:21 Freq: NEEDED Status: Active Protocol: Document 11/24/22 10:31 SAK (Rec: 11/24/22 10:42 SAK [id number]) Physical Therapy Current Condition Current Condition Evaluation Date 11/24/22 Treatment Diagnosis sepsis Onset Date 11/22/22 M3 PT-IP Subjective Start: 11/24/22 08:21 Freq: NEEDED Status: Active Protocol: Document 11/28/22 10:20 KS (Rec: 11/28/22 11:06 KS [id number]) Subjective Physical Therapy Visit Type Type Treatment Note Visit Start Time 10:20 Visit Stop Time 10:45 Total Visit Minutes 25 Notes present, agrees to citrus picker FWW Physical Therapy Visit Comments Patient Comments Patient alert in chair, agreeable to work with PT. Patient Goals discharge home with assistance of his M4 PT-IP Mobility and Gait Start: 11/24/22 08:21 Freq: NEEDED Status: Active Protocol: Document 11/28/22 10:20 KS (Rec: 11/28/22 11:06 KS [id number]) PT-Transfer Assessment Sit to and From Stand Sit to and from Stand Standby Assistance Equipment Transfer Assistive Device Gait Belt,Straight Cane Orthotic/Prosthetic Devices or Brace: No Transfers Transfer Destination Chair Transfer Technique Ambulated Transfer Ability Level of Assist Standby Assistance Comments Mobility Comments Pt SBA for sit<>stand, somewhat unsteady using SPC today, switched to FWW and pt much more balanced was able to walk ~150 ft SBA. Returned to room, pt agrees to use FWW at home for safety however does not want FWW dispensed from hospital and will either borrow from [employer] or purchase from [employer]. confirms. Gait Assessment Gait Gait Assistance Required: Standby Assistance Distance (Feet) 150 Assistive Devices Assistive Device Gait Belt,Straight Cane,Front Wheeled Walker Orthotic/Prosthetic Devices or Brace: No Gait Deviations General Gait Pattern Decreased Stride Length, Decreased Feet Clearance Factors Limiting Gait Function Factors Limiting Gait Function Poor Balance Comments Gait Comments Pt agrees he feels safer and more balanced using FWW at this time. will obtain. Stair Climbing Assessment Evaluation Level of Assist On Stairs Standby Assistance PT-Balance Assessment Sitting Balance and Reactions Static Sitting Balance Ability Normal Dynamic Sitting Balance Ability Normal Standing Balance and Reactions Static Standing Balance Ability Good Dynamic Standing Balance Ability Good Device Used FWW M5 PT-IP Objective Assessments Start: 11/24/22 08:21 Freq: NEEDED Status: Active Protocol: Document 11/24/22 10:31 SAK (Rec: 11/24/22 10:42 SAK [id number]) Gross Range of Motion Upper Extremity ROM Assessment Within Functional Limits Lower Extremity ROM Assessment Within Functional Limits Strength Upper Extremity Strength Assessment Within Functional Limits Lower Extremity Strength Assessment Within Functional Limits Sensation Assessment Sensation Gross Sensation WNL Muscle Tone Muscle Tone WNL Yes M6 PT-IP Treatment Start: 11/24/22 08:21 Freq: NEEDED Status: Active Protocol: Document 11/28/22 11:06 KS (Rec: 11/28/22 11:06 KS [id number]) Physical Therapy Treatment Education Education Provided Safety Other Treatments Other Treatment Performed Demonstrated gait belt application to pts M7 PT-IP Assessment and Plan Start: 11/24/22 08:21 Freq: NEEDED Status: Active Protocol: Document 11/28/22 10:20 KS (Rec: 11/28/22 11:06 KS [id number]) PT Summary Assessment and Plan Potential Rehabilitation Potential Good Summary Impairments Gait,Activity Tolerance Progress Towards Goals Progressing Toward Goals Assessment Summary Pt continues to be somewhat unsteady when using SPC today and prefers using FWW. Ambulated 150 ft w/ FWW SBA. Pt does not want FWW dispensed from hospital at this time and confirms they will obtain from [employer] or purchase from [employer]. Pt and feel eager and safe to return home. Goals Bed Mobility Goal Independent Transfer Goal Independent Gait Goal Independent,Cane Gait Distance 800 ft Other Goals Patient will ascend/descend 3 stairs with SPC and single rail without cues for sequencing. Days to Meet Goals 7 Frequency of Treatment Frequency Of Treatment Once a Day Treatment Plan Physical Therapy Treatment Plan Transfer Training,Gait Training,Therapeutic Exercise, Discharge Planning Weight Bearing Status Weight Bearing Status Full Weight Bearing Recommendations To Nursing Amount of Assist Needed Standby Assistance Discharge Recommendations PT Discharge Recommendations Home with Assistance Transportation Needs at Discharge Private Vehicle
--- NOTE | 2022-11-28 11:38 | PC.NURSE ---
Discharge: Discharge paperwork discussed, pt education provided on UTI, proper catheter care for outpt catheter, stroke s/s, worsening symptoms, and antibiotic adherence. Waters bag changed to leg bag per pt request and provider okayed. HH referral made by care management, information provided to pt and spouse. Questions answered, paperwork signed. IVs discontinued, telemetry removed. Pt wheeled via wheelchair to private vehicle with spouse and PCT at approximately 11:25.
--- NOTE | 2022-11-28 12:26 | CM.DPNOTE ---
DC Note Discharge home w/spouse today, Dr Katz recommends home health. Reviewed discharge plan with patient who agrees with home health services and has no agency preference Referral given to [facility] based on availability, Janell- gis database administrator kindly agreed to send this referral to [facility] including completed and signed F2F and HH order Provided [facility] brochure to patient and spouse Plan: Discharge home w/spouse with [facility] services to follow with PT/RN JW
== END 2022-11-28 11:25 | disposition home health service (06) | DRG 871 ==
LOC: ED 16:14 → AC 16:22 → ICU 16:39
PROVIDERS: Internal Medicine; Admitting Provider Family Medicine; Emergency Provider Emergency Medicine; PCP Family Medicine; Referring Provider Emergency Medicine; Visit Provider Family Medicine
DX: A41.51 Sepsis due to Escherichia coli [E. coli] (principal); G93.41 Metabolic encephalopathy; N12 Tubulo-interstitial nephritis, not specified as acute or chronic; N13.8 Other obstructive and reflux uropathy; E78.5 Hyperlipidemia, unspecified; M10.9 Gout, unspecified; E86.1 Hypovolemia; R00.1 Bradycardia, unspecified; N40.1 Benign prostatic hyperplasia with lower urinary tract symptoms; E87.6 Hypokalemia; I10 Essential (primary) hypertension; E86.0 Dehydration; I48.91 Unspecified atrial fibrillation; N35.919 Unspecified urethral stricture, male, unspecified site; R79.89 Other specified abnormal findings of blood chemistry; Z66 Do not resuscitate
CPT/HCPCS: 36415; 71045; 76705; 76770; 80048; 80053; 81001; 81003; 83605; 83690; 83735; 84145; 85025; 85610; 85651; 85730; 86140; 87040; 87077; 87086; 87154; 87186; 87633; 87797; 93005; 93010; 93306; 96361; 96365; 97116; 97129; 97162; 97165; 97530; 97535; 99233; 99284; 99285; J0696; J1650; J1885; J1956; J2405; J2543

== ENCOUNTER 2023-02-01 03:42 | Emergency (ER) | payer MEDICARE, OTHER, SELFPAY ==
[2022-11-22 18:21] VITALS: BMI 25.7
[2023-02-01 03:48] VITALS: BP 154/72; PULSE 65; RESP 28; TEMP 36.6; O2SAT 93; BMI 26.4
--- NOTE | 2023-02-01 03:49 | DI.RAD.S_ITS ---
PROCEDURE: XR CHEST 1V INDICATIONS: Weakness, SOB, Covid-positive. TECHNIQUE: One view of the chest was acquired. COMPARISON: [facility], CR, XR CHEST 1V, 11/22/2022, 14:49. FINDINGS: Surgical changes and devices: None. Lungs and pleura: Lungs are clear. No pleural effusions or pneumothorax. Mediastinum: Mediastinal contours appear normal. Heart size is normal. Bones and chest wall: No suspicious bony lesions. Overlying soft tissues appear unremarkable. IMPRESSION: Portable chest within normal limits for age. Dictated by: Martine Cintron M.D. on 02/01/2023 at 7:19 Approved by: Martine Cintron M.D. on 02/01/2023 at 7:20
[2023-02-01] MEDS: SODIUM CHLORIDE 0.9% 1,000 ML 1000 ML IV (03:50)
--- NOTE | 2023-02-01 03:50 | ED.GENADULT ---
HPI - General Adult General Chief complaint: Shortness of Breath/Dyspnea Stated complaint: SOB, Weakness Time Seen by Provider: 02/01/23 03:48 History of Present Illness HPI narrative: 82-year-old male non-smoker with history of HTN and hyperlipidemia and COVID diagnosed on , on presents by EMS for evaluation of chest congestion. He has been feeling under the weather since his diagnosis and was developing increasing chest congestion and called EMS. They attempted to help him get to the bathroom and upon standing him he had a syncopal episode that was brief, he was eased to the ground and suffered no injury. He was given an IV and brought to the emergency department for further evaluation. He denies nausea or vomiting, he is had no diarrhea or urinary complaints. He states he is eating and drinking though not quite as much as normal. He denies any significant respiratory distress Related Data Home Medications Medication Instructions Recorded Confirmed allopurinol 100 mg tablet 100 mg PO DAILY 07/31/22 11/22/22 atorvastatin 20 mg tablet 20 mg PO DAILY 07/31/22 11/22/22 Previous Rx's Medication Instructions Recorded psyllium husk (with sugar) 3.4 1 tbsp PO BID #822 grams 08/20/22 gram/7 gram oral powder (Fiber (psyllium husk-sugar)) amlodipine 5 mg tablet (Norvasc) 5 mg PO DAILY #30 tabs 11/28/22 hydrochlorothiazide 25 mg tablet 25 mg PO DAILY #30 tabs 11/28/22 levofloxacin 250 mg tablet 750 mg PO 0700 #2 tabs 11/28/22 lisinopril 20 mg tablet 20 mg PO DAILY #30 tabs 11/28/22 Allergies Allergy/AdvReac Type Severity Reaction Status Date / Time No Known Drug Allergies Allergy Verified 10/08/22 10:33 Review of Systems Review of Systems Narrative: GENERAL: See HPI HEENT: Denies sinus pain, ear pain, sore throat, difficulty swallowing, dizziness. RESPIRATORY: See HPI CARDIOVASCULAR: Denies chest pain, palpitations, orthopnea, edema, GASTROINTESTINAL: Denies nausea, vomiting, abdominal pain, diarrhea, constipation, melena. : Denies dysuria, frequency, incontinence, hematuria, urinary retention. MUSCULOSKELETAL: denies weakness, joint pain, or bony pain SKIN: Denies rash, skin lesions, or other NEUROLOGIC: Denies weakness, headache, numbness, change in speech, confusion, seizures, incoordination. PSYCHIATRIC: No concerning psychosocial issues. 12 point review of systems is negative except for those stated above Patient History Medical History Bowel obstruction BPH w urinary obs/LUTS HTN (hypertension) Mixed hyperlipidemia Right inguinal hernia Surgical History History of skin surgery (03/27/19) History of skin surgery (04/13/19) Status post left inguinal hernia repair (~08/2022) Social History marital status: household members: spouse lives independently: Yes occupational status: previously employed Smoking Status: Never smoker alcohol intake: current substance use type: does not use Smoking Status: Never smoker alcohol intake frequency: a few times a week Alcohol type: wine Substance Use Type: does not use Exam Narrative Exam Narrative: GENERAL: [82] year old patient appears stated age. Well-developed patient, in mild distress. HEAD: Atraumatic. Normocephalic. EYES: Pupils equal round and reactive. Extraocular motions intact. No scleral icterus. No injection or drainage. ENT: Dry mucous membranes Nose without bleeding, purulent drainage. Throat without erythema, tonsillar hypertrophy or exudate. Airway patent. NECK: Trachea midline. Non tender CARDIOVASCULAR: Regular rate and rhythm without murmurs, gallops, or rubs. RESPIRATORY: Clear to auscultation. Breath sounds equal bilaterally. No wheezes, rales, or rhonchi. No hypoxemia or use of accessory muscles GASTROINTESTINAL: Abdomen soft, non-tender, nondistended. EXTREMITIES: No edema or joint tenderness. BACK: Nontender without deformity or crepitance. No flank tenderness. NEURO: AOx3. SKIN: No rash or erythema of visible areas Initial Vital Signs Initial Vital Signs: Vital Signs Temperature 97.8 F 02/01/23 03:48 Pulse Rate 65 02/01/23 03:48 Respiratory Rate 28 H 02/01/23 03:48 Blood Pressure 154/72 H 02/01/23 03:48 Pulse Oximetry 93 02/01/23 03:48 Oxygen Delivery Method Room Air 02/01/23 03:48 Course Orders Ordered: ED Orders 02/01/23 03:48 Procalcitonin Stat EKG-12 Lead Stat 02/01/23 03:49 XR chest 1V Stat C-Reactive Protein Quant Stat Complete Blood Count AUTO DIFF Stat Comprehensive Metabolic Panel Stat Ferritin Stat Lactate Dehydrogenase Stat NT-proBNP (BNP-Adult 18+) Stat Troponin & CK Cardiac Panel Stat Discontinued Medications Sodium Chloride (Normal Saline 0.9%) 1,000 mls @ 1,000 mls/hr IV BOLUS ONE Stop: 02/01/23 04:47 Last Admin: 02/01/23 03:50 Dose: 1,000 mls/hr Vital Signs Vital signs: Vital Signs - 8 hr 02/01/23 03:48 Temperature 97.8 F Pulse Rate 65 Respiratory Rate 28 H Blood Pressure 154/72 H Pulse Oximetry 93 Oxygen Delivery Method Room Air Medical Decision Making Lab Data 02/01/23 03:45 02/01/23 03:45 Labs: Lab Results 02/01/23 02/01/23 02/01/23 Range/Units 03:45 03:45 03:45 WBC 6.8 (4.5-11.0) X10^3/uL RBC 4.24 L (4.5-5.9) X10^6/uL Hgb 12.3 L (13.5-17.5) g/dL Hct 36.6 L (41-53) % MCV 86.2 (80-100) fL MCH 29.0 (26-34) PG MCHC 33.6 (30-36) % RDW 15.5 H (11.6-14.8) % Plt Count 143 L (150-400) X10^3/uL Neut % (Auto) 70.6 (50-75) % Lymph % (Auto) 16.6 L (25-40) % [place] % (Auto) 12.3 (3-14) % Eos % (Auto) 0.0 L (2-4) % Baso % (Auto) 0.5 (0-2) % Neut # (Auto) 4800 (5552-6622) /uL Lymph # (Auto) 1100 (5415-6895) /uL [place] # (Auto) 800 (0-900) /uL Eos # (Auto) 0 (0-450) /uL Baso # (Auto) 0 (0-100) /uL Sodium 133 L (137-145) mmol/L Potassium 3.6 (3.4-5.1) mmol/L Chloride 102 (98-107) mmol/L Carbon Dioxide 21 L (22-32) mmol/L BUN 29 H (9-20) mg/dL Creatinine 1.26 H (0.66-1.25) mg/dL Estimated GFR 58 L (>60) mL/min BUN/Creatinine Ratio 23.0 H (6-22) Glucose 120 H (80-110) mg/dL Calcium 8.4 (8.4-10.2) mg/dL Ferritin 616 H (18-464) ng/mL Total Bilirubin 0.7 (0.2-1.3) mg/dL AST 85 H (17-59) IU/L ALT 89 H (<50) IU/L Alkaline Phosphatase 86 (38-126) U/L Lactate Dehydrogenase 205 (120-246) U/L Total Creatine Kinase 146 (55-170) U/L Troponin I 0.058 H (0.01-0.034) ng/mL C-Reactive Protein 5.4 H (<1.0) mg/dL NT-Pro-B Natriuret Pep 1500 H (<450) pg/mL Total Protein 6.5 (6.3-8.2) g/dL Albumin 3.8 (3.5-5.0) g/dL Globulin 2.7 (1.7-4.1) g/dL Albumin/Globulin Ratio 1.4 (1.0-2.8) Procalcitonin 0.20 (<0.5) ng/mL [facility] Narrative Medical decision making narrative: CC: 82-year-old male with chest congestion and syncopal episode Complicating co-morbidities: Age, hypertension Data collected from: Patient Medical records reviewed: Prior notes reviewed in our EMR Differential considered, but not limited to: COVID versus dehydration versus other Exam documented above, pertinent findings include: Heart rate regular, crackles in bilateral bases, no significant work of breathing, no hypoxemia, slightly dry mucous membranes Lab Test results independently reviewed as above. Pertinent findings: Slight bump in creatinine consistent with his dehydration picture Independently reviewed EKG as above Imaging studies independently reviewed: Chest x-ray with possible infiltrate Treatments: 1 L bolus Re-evaluations: Patient does fine with orthostatics and is ambulatory through the department Discussion: Patient with known COVID has some cough but no significant work of breathing, no hypoxemia, no increased work of breathing. He is tolerating orals, feels much better after fluids, ambulatory in the department, no indication for hospitalization or further evaluation Disposition: see below, along with detailed discharge instructions that have been reviewed with patient as well as indications for ED re-evaluation and additional outpatient follow up Discharge Plan Departure Patient Disposition: Home Clinical Impression: COVID-19, Acute dehydration Instructions: DI for Dehydration -- Adult, COVID-19 Activity Restrictions/Additional Instructions: *You have been diagnosed with [ COVID-19] *What to do: ?* per recommendations from the CDC and the [facility] Department of Health ?* stay home except to get medical care. ?Restrict activities outside your home, except for getting medical care. ?Do not go to work, school, or public areas. ?Avoid using public transportation, ride sharing, or taxis. ?* separate yourself from other people in your home. ?* call ahead before visiting your doctor ?* Wear a facemask ?* Cover your coughs and sneezes ?* Clean your hands often ?* Avoid sharing household items ?* Clean all high-touch services every day ?* Monitor your symptoms and seek prompt medical attention if your illness is worsening, particularly with difficulty in breathing. You may discontinue your isolation when: ?1. You have been fever-free for at least 24 hours without the use of fever reducing medication, AND ?2. Your symptoms are getting better, AND ?3. At least 5 days have passed since symptoms first appeared ?4. If you have fever, continue to stay home until fever resolves Individuals with laboratory confirmed COVID-19 who have not had any symptoms may discontinue home isolation when at least 5 days have passed since the date of their first COVID-19 diagnostic test and have had no subsequent illness You should notifiy any friends and family that have been in close contact *If up to date on COVID Vaccines, then they do not need to quarantine unless symptoms develop. Get tested on day 5 (or sooner if symptoms develop). Take precautions and watch for symptoms until day 10 *If NOT up to date on COVID Vaccines, then CDC recommends quarantine for at least 5 full days. Wear a well fitted mask at home if you must be around others. If they ?develop symptoms they should get tested. If they remain asymptomatic they should get tested on day 5. They should take precautions and monitor for symptoms until day 10. Prescriptions: No Action allopurinol 100 mg tablet 100 mg PO DAILY atorvastatin 20 mg tablet 20 mg PO DAILY Fiber (psyllium husk-sugar) 3.4 gram/7 gram powder 1 tbsp PO BID Qty: 822 0RF lisinopril 20 mg Tablet 20 mg PO DAILY Qty: 30 0RF amlodipine [Norvasc] 5 mg Tablet 5 mg PO DAILY Qty: 30 0RF hydrochlorothiazide 25 mg Tablet 25 mg PO DAILY Qty: 30 0RF levofloxacin 250 mg Tablet 750 mg PO 0700 Qty: 2 0RF Referrals: Uvaldo Katz MD [Primary Care Provider] - Stand Alone Forms: Patient Portal/API
--- NOTE | 2023-02-01 03:53 | PC.NURSE ---
ems was assisting pt to bathroom at home when pt had a syncopal episode
[2023-02-01 03:59] LABS: Add Manual Diff / Slide Review NO; Basophils Absolute Auto 0 /uL (0-100); Basophils Percent Auto 0.5 % (0-2); Eosinophils Absolute Auto 0 /uL (0-450); Hematocrit 36.6 % (41-53); Hemoglobin 12.3 g/dL (13.5-17.5); Lymphocytes Absolute Auto 1100 /uL (1100-4500); Lymphocytes Percent Auto 16.6 % (25-40); Mean Corpuscular HGB Conc 33.6 % (30-36); Mean Corpuscular Volume 86.2 fL (80-100); Monocytes Absolute Auto 800 /uL (0-900); Monocytes Percent Auto 12.3 % (3-14); Neutrophils Absolute Auto 4800 /uL (1500-7000); Neutrophils Percent Auto 70.6 % (50-75); Platelet Count 143 X10^3/uL (150-400); Red Blood Cell Count 4.24 X10^6/uL (4.5-5.9); Red Cell Distribution Width 15.5 % (11.6-14.8); White Blood Cell Count 6.8 X10^3/uL (4.5-11.0)
[2023-02-01 04:01] LABS: HEMOLYSIS < 15 (0-50)
[2023-02-01 04:06] LABS: Calcium 8.4 mg/dL (8.4-10.2)
[2023-02-01 04:08] LABS: Alanine Aminotransferase 89 IU/L (<50); Albumin 3.8 g/dL (3.5-5.0); Albumin Globulin Ratio 1.4 (1.0-2.8); Alkaline Phosphatase 86 U/L (38-126); Aspartate Aminotransferase 85 IU/L (17-59); Bilirubin Total 0.7 mg/dL (0.2-1.3); Blood Urea Nitrogen 29 mg/dL (9-20); C-Reactive Protein Quant 5.4 mg/dL (<1.0); Carbon Dioxide 21 mmol/L (22-32); Chloride 102 mmol/L (98-107); Creatine Kinase 146 U/L (55-170); Estimated Glomerular Filt Rate 58 mL/min (>60); Globulin 2.7 g/dL (1.7-4.1); Glucose 120 mg/dL (80-110); Lactate Dehydrogenase 205 U/L (120-246); Potassium 3.6 mmol/L (3.4-5.1); Sodium 133 mmol/L (137-145); Total Protein 6.5 g/dL (6.3-8.2)
[2023-02-01 04:19] LABS: NT-proBNP (BNP-Adult 18+) 1500 pg/mL (<450); Troponin I 0.058 ng/mL (0.01-0.034)
[2023-02-01 04:40] LABS: Ferritin 616 ng/mL (18-464)
--- NOTE | 2023-02-01 04:45 | PC.NURSE ---
pt ambulated to bathroom with only standby assistance, and ambulated back to room without any difficulty or c/o dizziness, gait steady
[2023-02-01 05:00] VITALS: BP 174/75; RESP 20
== END 2023-02-01 05:12 | disposition home or self-care (01) ==
PROVIDERS: Emergency Provider Emergency Medicine; PCP Family Medicine
DX: U07.1 COVID-19 (principal); E86.0 Dehydration; R06.02 Shortness of breath
CPT/HCPCS: 71045; 80053; 82550; 82728; 83615; 83880; 84145; 84484; 85025; 86140; 93005; 93010; 96360; 99283; 99284

== ENCOUNTER 2023-03-12 11:30 | Day surgery (SDC) | payer MEDICARE, OTHER, SELFPAY ==
[2022-11-22 18:21] VITALS: BMI 25.7
[2023-02-12 09:58] VITALS: BMI 25.7
[2023-03-06 14:54] VITALS: BMI 26.4
[2023-03-12 11:50] VITALS: BP 186/90; PULSE 75; RESP 14; TEMP 36.3; O2SAT 99
[2023-03-12 11:52] VITALS: BMI 24.4
[2023-03-12] MEDS: LACTATED RINGERS 1,000 ML 100 ML IV (12:02)
--- NOTE | 2023-03-12 12:32 | PM.PREOP ---
Pre-operative Note Interval Note History & Physical reviewed/Exam performed by Physician: Yes Changes to H&P: No
--- NOTE | 2023-03-12 12:48 | SUR.OPER ---
Supine on padded OR bed, head on pillow, arms secured on padded arm boards at <90 degrees abduction, legs uncrossed, safety belt at thigh, tape over blanket over lower legs.
[2023-03-12] MEDS: CEFAZOLIN 2 GM/100 ML PREMIX 100 ML IV (13:15)
[2023-03-12] MEDS: BUPIVACAINE 0.25% (PF) VIAL 30 ML INJ (13:17)
[2023-03-12 14:10] VITALS: BP 174/97; PULSE 63; RESP 11; TEMP 36.1; O2SAT 98
[2023-03-12 14:15] VITALS: BP 168/96; PULSE 61; RESP 11; O2SAT 98
--- NOTE | 2023-03-12 14:17 | P.OP_ITS ---
Operative Date/Time/Diagnoses Date of procedure: 03/12/23 Time of procedure: 14:17 Pre-op diagnosis: Right inguinal hernia Post-op diagnosis: same Procedure & Clinicians Procedure: Open right inguinal hernia repair with mesh Same procedure as scheduled: Yes Indications: 83-year-old male with a symptomatic reducible right inguinal hernia here for an open repair. Surgeon: Hector Coy Yes if Unassisted: Yes Anesthesia Type: General Operative Notes Findings: Direct floor defect. Cord lipoma Specimen(s): none sent Estimated Blood Loss (mL): 10 Procedure in detail: The patient was placed supine on the table and bilateral lower extremity compression devices were applied. Anesthesia was induced they were intubated with an LMA and received Ancef. A time-out was performed. They were prepped and draped in sterile fashion. The right external inguinal ring and the anterior superior iliac crest were identified and marked. 1 finger breath above the inguinal ligament the skin was infiltrated with 0.25% bupivacaine. The skin incision was made, the subcutaneous tissues were divided with electrocautery exposing the external oblique aponeurosis which was then opened along the direction of its fibers. Using blunt dissection the internal oblique aporneurosis was from the external oblique upper leaflet. The cord was carefully dissected away from the inguinal canal adjacent to the pubic tubercle. The cord including the vas deferens, testicular bloody supply, ilioguinal and genital nerve were encircled with a [place] drain. A direct floor defect was identified and it was reduced into the abdomen. The cremasteric fibers surrounding the cord were divided adjacent to the internal ring. The vas deferens and the testicular vessels were preserved and protected. The cord contents were carefully explored. There was a small cord lipoma which was skeletonized away from the vas deferens and testicular blood supply. The indirect hernia was skeletonized back to the internal ring and reduced spontaneously into the abdomen. A 7x 15 cm lightweight Bard Pro Loop hernia me sh was anchored to the insertion of the rectus muscle at the pubic tubercle such that there was approximately 2 cm of tubercle overlap with Ethibond. The inferior edge of the mesh was secured to the shelving edge of the inguinal ligament using Ethibond. Interrupted 3 0 Vicryl suture was used to anchor the superior aspect of the mesh to the conjoined tendon in several places. The tails were then reapproximated loosely around the spermatic cord. The tails of the mesh were then tucked under the external oblique aponeurosis. The repair was checked for hemostasis. The wound was irrigated with sterile saline. The external oblique aponeurosis was reapproximated in a running fashion using 3 0 Vicryl. The subcutaneous tissues were reapproximated with 3 0 Vicryl skin closed with 4 0 Monocryl followed by the application of Dermabond. At the end of the operation I ensured that both testicles were within the scrotum. The sponge instrument count at the end operation was correct. The patient emerged from anesthesia was extubated and transferred to the postoperative care unit in stable condition. A total of 30 ml of of 0.25% bupivicaine was used to infiltrate the skin. Complications: none Post-operative Condition: stable Disposition: same day surgery
[2023-03-12 14:20] VITALS: BP 165/90; PULSE 67; RESP 12; TEMP 36.4; O2SAT 98
[2023-03-12 14:25] VITALS: BP 174/68; PULSE 57; RESP 10; O2SAT 99
[2023-03-12] MEDS: HYDROCODONE/ACET 5/325 TABLET 1 TAB PO (14:31)
[2023-03-12] MEDS: ONDANSETRON 4 MG/2 ML INJ IV (14:31)
[2023-03-12 14:35] VITALS: BP 178/90; PULSE 57; RESP 12; O2SAT 99
== END 2023-03-12 15:20 | disposition home or self-care (01) ==
PROVIDERS: PCP Family Medicine; Referring Provider Surgery; Visit Provider Surgery
PROC: (CPT 49505; principal; 2023-03-12 14:00)
DX: K40.90 Unilateral inguinal hernia, without obstruction or gangrene, not specified as recurrent (principal); I10 Essential (primary) hypertension
CPT/HCPCS: 49505; J0690; J2405; J2704; J3010

== ENCOUNTER 2024-06-23 08:53 | Day surgery (SDC) | payer MEDICARE, OTHER, SELFPAY ==
[2023-02-12 09:58] VITALS: BMI 25.7
[2024-06-23 09:23] VITALS: BMI 25.7
--- NOTE | 2024-06-23 09:23 | P.OP.COLON_ITS ---
Operative Date/Time/Diagnoses Date of procedure: 06/23/24 Pre-op diagnosis: See indication and findings Procedure & Clinicians Study performed: EGD grape Indications: 10 year screening and history of constipation with right lower quadrant discomfort Surgeon: Halle Hinojosa Procedure Notes Procedure in detail: After informed consent was obtained the patient was placed in left lateral decubitus position. The video colonoscope was introduced the rectum slowly advanced to the cecum. On withdrawal mucosa was carefully examined. The scope was removed. The patient was tolerated the procedure well. Blood loss none Complications none Sedation mac Findings 1. Scattered sigmoid diverticulosis 2. Otherwise negative colonoscopy to cecum with excellent prep. Patient should remain on some kind of bowel regimen but he will not need follow- up colonoscopy in the future.
--- NOTE | 2024-06-23 09:46 | P.HP_ITS ---
History of Present Illness History of Present Illness Chief complaint: Colonoscopy Narrative: Slow transit constipation with right lower quadrant discomfort and no history of colonoscopy in the last 12 years. [facility] Medical History (Updated 03/27/23 @ 09:40 by Hector Anthony MD) History of COVID-19 (01/30/23) Right inguinal hernia BPH w urinary obs/LUTS Mixed hyperlipidemia Bowel obstruction HTN (hypertension) Surgical History Status post left inguinal hernia repair (~08/2022) History of skin surgery (04/13/19) History of skin surgery (03/27/19) Social History marital status: household members: spouse lives independently: Yes occupational status: previously employed Smoking Status: Never smoker alcohol intake: current substance use type: does not use Meds Home Medications and Allergies Home Medications Medication Instructions Recorded Confirmed Type allopurinol 100 mg tablet 100 mg PO DAILY 07/31/22 03/27/23 History atorvastatin 20 mg tablet 20 mg PO DAILY 07/31/22 03/27/23 History psyllium husk (with sugar) 3.4 1 tbsp PO BID #822 grams 08/20/22 03/27/23 Rx gram/7 gram oral powder (Fiber (psyllium husk-sugar)) lisinopril 20 mg tablet 20 mg PO DAILY #30 tabs 11/28/22 03/27/23 Rx acetaminophen 325 mg capsule 650 mg (2 x 325 mg) PO QID PRN 03/12/23 03/27/23 Rx (Tylenol) pain #60 caps celecoxib 200 mg capsule (Celebrex) 200 mg PO BID #20 caps 03/12/23 03/27/23 Rx Allergies Allergy/AdvReac Type Severity Reaction Status Date / Time No Known Drug Allergies Allergy Verified 03/27/23 09:07 Exam Vital Signs (past 8 hours): - 06/23/24 09:23 Oxygen Delivery Method Room Air Oxygen Delivery Method Room Air Narrative Exam Narrative: Oropharynx free of lesions Chest clear to auscultation percussion Cardiac exam reveals no S3 or murmur Assessment & Plan Assessment & Plan narrative: Slow transit constipation with right lower quadrant discomfort and negative colonoscopy 12 years ago. Risks, benefits, alternatives have been explained. Time-Based Coding :: [TOTAL MINUTES] spent with patient and on the chart (including review of chart, obtaining history, exam, reviewing outside data, placing orders, documenting exam and treatment plan, and counseling patient) on [DATE].
[2024-06-23 10:24] VITALS: BP 105/56; PULSE 68; RESP 14; TEMP 36.1; O2SAT 97
[2024-06-23 10:28] VITALS: BP 117/64; PULSE 67; RESP 15; O2SAT 98
[2024-06-23 10:33] VITALS: BP 121/66; PULSE 71; RESP 16; O2SAT 96
[2024-06-23 10:37] VITALS: BP 120/68; PULSE 71; RESP 14; TEMP 36.1; O2SAT 94
== END 2024-06-23 11:00 | disposition home or self-care (01) ==
PROVIDERS: PCP Family Medicine; Referring Provider Internal Medicine Gastroenterology; Visit Provider Internal Medicine Gastroenterology
PROC: 0DJD8ZZ Inspection of Lower Intestinal Tract, Via Natural or Artificial Opening Endoscopic (ICD-10-PCS; CPT 45378; principal; 2024-06-23 09:30)
DX: R10.31 Right lower quadrant pain (principal); K59.01 Slow transit constipation; G20.A1 Parkinson's disease without dyskinesia, without mention of fluctuations; K57.30 Diverticulosis of large intestine without perforation or abscess without bleeding
CPT/HCPCS: 45378; J2704

== ENCOUNTER 2025-03-06 18:29 | Emergency (ER) | payer MEDICARE, OTHER, SELFPAY ==
[2023-02-12 09:58] VITALS: BMI 25.7
[2025-03-06] VITALS (18 sets, daily range): BP systolic 95–234; BP diastolic 52–109; PULSE 54–67; RESP 11–21; TEMP 36.1; O2SAT 91–100; BMI 25.3
--- NOTE | 2025-03-06 18:48 | DI.RAD.S_ITS ---
PROCEDURE: XR CHEST 1V INDICATIONS: Chest Pain TECHNIQUE: One view of the chest was acquired. COMPARISON: [facility], CR, XR CHEST 1V, 02/01/2023, 3:45. FINDINGS: Surgical changes and devices: None. Lungs and pleura: Lungs are clear. No pleural effusions or pneumothorax. Mediastinum: Mediastinal contours appear normal. Heart size is normal. Bones and chest wall: No suspicious bony lesions. Overlying soft tissues appear unremarkable. IMPRESSION: No acute cardiopulmonary abnormality is seen. Approved by: Nesha Bell M.D.,Ph.D. on 03/06/2025 at 19:31
--- NOTE | 2025-03-06 18:55 | EKG_ITS ---
[address] [address] Test Date: 2025-03-06 Pat Name: Irvin Quesada Department: [facility] Room: Gender: Male Sonography Technician: COLTEN : 1940 Requested By: Order Number: [id number] Reading MD: Andres Russell MD Measurements Intervals [place] Rate: 63 P: 4 MS: 174 QRS: 14 QRSD: 94 T: 36 QT: 420 QTc: 429 Interpretive Statements Normal sinus rhythm Electronically Signed On 03-06-2025 21:52:39 PDT by Andres Russell MD
[2025-03-06 19:07] LABS: Add Manual Diff / Slide Review NO; Hematocrit 40.8 % (41-53); Hemoglobin 13.8 g/dL (13.5-17.5); Lymphocytes Absolute Auto 1900 /uL (1100-4500); Mean Corpuscular HGB Conc 33.9 % (30-36); Mean Corpuscular Hemoglobin 30.6 PG (26-34); Mean Corpuscular Volume 90.4 fL (80-100); Platelet Count 220 X10^3/uL (150-400)
[2025-03-06 19:14] LABS: INR 1.0 (0.9-1.3); Prothrombin Time 11.0 SECONDS (9.4-12.5)
[2025-03-06 19:17] LABS: PTT Partial Thromboplastin Tim 21 SECONDS (25.1-36.5)
[2025-03-06 19:18] LABS: Alanine Aminotransferase 9 IU/L (<50); Albumin 4.7 g/dL (3.5-5.0); Albumin Globulin Ratio 1.8 (1.0-2.8); Alkaline Phosphatase 95 U/L (38-126); Blood Urea Nitrogen 44 mg/dL (9-20); Calcium 8.6 mg/dL (8.4-10.2); Carbon Dioxide 22 mmol/L (22-32); Chloride 102 mmol/L (98-107); Creatine Kinase 91 U/L (55-170); Estimated Glomerular Filt Rate 30 mL/min (>60); Globulin 2.6 g/dL (1.7-4.1); Glucose 135 mg/dL (70-99); HEMOLYSIS 22 (0-50); Lipase 96 U/L (23-300); Magnesium 2.2 mg/dL (1.6-2.3); Potassium 5.1 mmol/L (3.4-5.1); Sodium 136 mmol/L (137-145); Total Protein 7.3 g/dL (6.3-8.2)
[2025-03-06 19:30] LABS: NT-proBNP (BNP-Adult 18+) 270 pg/mL (<450); Troponin I < 0.012 ng/mL (0.01-0.034)
--- NOTE | 2025-03-06 19:37 | ED_ITS ---
HPI - Weakness General Chief complaint: Weakness Stated complaint: seems off, parkinsons Time Seen by Provider: 03/06/25 18:52 Source: patient and family Mode of arrival: Wheelchair History of Present Illness HPI Narrative: 85-year-old gentleman history of hypertension dyslipidemia parkinsons presents with confusion this evening as states he did not seem like he was acting right and was hanging onto the counter top and almost follow up but she was caught in the standing position so he did not fall. She checked his blood pressure and was 3 times it was 80s over 60s which he is currently on blood pressure medicines at this time. He has no complaints at this time. Denies weakness, headache, dizziness, blurred vision, chest pain, shortness of breath, fever, chills, body aches, nausea, vomiting, diarrhea, but does have a nonproductive cough. Other than what is stated 14 point review of system is negative. Related Data Home Medications ?Medication ?Instructions ?Recorded ?Confirmed allopurinol 100 mg tablet 100 mg PO DAILY 07/31/22 atorvastatin 20 mg tablet 20 mg PO DAILY 07/31/2201/17 indomethacin 50 mg capsule 100 mg PO Gout pain 5 01/31/25 metoprolol succinate 50 mg capsule 50 mg PO DAILY Bloo d pressure 01/31/25 01/31/25 sprinkle, ext. release 24 hr control polyethylene glycol 3350 17 g PO Loosen stool 01/31/25 01/31/25 gram/dose oral powder Previous Rx's ?Medication ?Instructions ?Recorded psyllium husk (with sugar) 3.4 1 tbsp PO BID #822 gram s 08/20/22 gram/7 gram oral powder (Fiber (psyllium husk-sugar)) lisinopril 20 mg tablet 20 mg PO DAILY #30 tabs 11/16 08/08 acetaminophen 325 mg capsule 650 mg (2 x 325 mg) PO QI D PRN 03/12/23 (Tylenol) pain #60 caps celecoxib 200 mg capsule (Celebrex) 200 mg PO BID #20 caps 03/12/23 Allergies Allergy/AdvReac Type Severity Reaction Status Date / Time No Known Drug Allergies Allergy Verified 03/06/25 18:41 Review of Systems Review of Systems ROS Unobtainable: All systems reviewed & are unremarkable except as noted in HPI and below Patient History Medical History (Updated 03/06/25 @ 23:00 by Andres Mackey DO) History of COVID-19 (01/30/23) Right inguinal hernia BPH w urinary obs/LUTS Mixed hyperlipidemia Bowel obstruction HTN (hypertension) Surgical History Status post left inguinal hernia repair (~08/2022) History of skin surgery (04/13/19) History of skin surgery (03/27/19) Social History marital status: household members: spouse lives independently: Yes occupational status: previously employed alcohol intake: current substance use type: does not use alcohol intake frequency: a few times a week Alcohol type: wine Exam Narrative Exam Narrative: GENERAL: [85] year old patient appears stated age. Well-developed patient, in mild distress. HEAD: Atraumatic. Normocephalic. EYES: Pupils equal round and reactive. Extraocular motions intact. No scleral icterus. No injection or drainage. ENT: Nose without bleeding, purulent drainage. Throat without erythema, tonsillar hypertrophy or exudate. Airway patent. NECK: Trachea midline. Non tender CARDIOVASCULAR: Regular rate and rhythm without murmurs, gallops, or rubs. RESPIRATORY: Clear to auscultation. Breath sounds equal bilaterally. No wheezes, rales, or rhonchi. GASTROINTESTINAL: Abdomen soft, non-tender, nondistended. EXTREMITIES: No edema or joint tenderness. BACK: Nontender without deformity or crepitance. No flank tenderness. NEURO: AOx3. SKIN: No rash or erythema of visible areas Initial Vital Signs Initial Vital Signs: Vital Signs Temperature 97.0 F L 03/06/25 18:41 Pulse Rate 61 03/06/25 18:41 Respiratory Rate 18 03/06/25 18:41 Blood Pressure 95/52 L 03/06/25 18:41 Pulse Oximetry 100 03/06/25 18:41 Oxygen Delivery Method Room Air 03/06/25 18:41 Course Orders Ordered: ED Orders 03/06/25 18:48 XR chest 1V Stat EKG-12 Lead Stat 03/06/25 18:59 Complete Blood Count AUTO DIFF Stat Comprehensive Metabolic Panel Stat Lipase Stat Magnesium Stat NT-proBNP (BNP-Adult 18+) Stat PTT Partial Thromboplastin Chau Stat Prothrombin Time INR Stat Troponin & CK Cardiac Panel Stat 03/06/25 19:52 CT head/brain wo con Stat 03/06/25 22:10 Troponin I Stat Lactated Ringer's (Lactated Ringers) 1,000 mls @ 1,000 mls/hr IV BOLUS ONE Stop: 03/06/25 23:16 Last Admin: 03/06/25 22:21 Dose: 1,000 mls/hr Documented By: Discontinued Medications Lactated Ringer's (Lactated Ringers) 1,000 mls @ 1,000 mls/hr IV BOLUS ONE Stop: 03/06/25 20:39 Last Infusion: 03/06/25 22:13 Dose: Infused Documented By: Admin: 03/06/25 20:18 Dose: 1,000 mls/hr Documented By: INNA Vital Signs Vital signs: Vital Signs - 8 hr 03/06/25 18:41 03/06/25 18:52 03/06/25 18:59 Temperature 97.0 F L Pulse Rate 61 64 61 Respiratory Rate 18 17 Blood Pressure 95/52 L Pulse Oximetry 100 98 91 Oxygen Delivery Method Room Air 03/06/25 19:00 03/06/25 19:00 03/06/25 19:30 Temperature Pulse Rate 62 Respiratory Rate 20 Blood Pressure 131/61 121/58 L Pulse Oximetry 98 Oxygen Delivery Method 03/06/25 19:30 03/06/25 20:15 03/06/25 20:17 Temperature Pulse Rate 54 L 57 L 57 L Respiratory Rate 16 15 Blood Pressure Pulse Oximetry 99 99 100 Oxygen Delivery Method 03/06/25 20:17 03/06/25 20:30 03/06/25 20:30 Temperature Pulse Rate 59 L Respiratory Rate 11 L Blood Pressure 174/79 H 157/72 H Pulse Oximetry 100 Oxygen Delivery Method 03/06/25 21:00 03/06/25 21:01 03/06/25 21:01 Temperature Pulse Rate 59 L 58 L Respiratory Rate 13 13 Blood Pressure 197/85 H Pulse Oximetry 98 99 Oxygen Delivery Method Room Air 03/06/25 21:30 03/06/25 21:31 03/06/25 21:31 Temperature Pulse Rate 59 L 60 Respiratory Rate 14 17 Blood Pressure 201/109 H Pulse Oximetry 99 99 Oxygen Delivery Method 03/06/25 22:00 03/06/25 22:01 03/06/25 22:01 Temperature Pulse Rate 60 58 L Respiratory Rate 18 20 Blood Pressure 213/81 H Pulse Oximetry 99 99 Oxygen Delivery Method 03/06/25 22:13 03/06/25 22:13 03/06/25 22:30 Temperature Pulse Rate 61 62 Respiratory Rate 16 21 Blood Pressure 178/77 H Pulse Oximetry 98 99 Oxygen Delivery Method 03/06/25 22:31 03/06/25 22:31 03/06/25 22:57 Temperature Pulse Rate 67 55 L Respiratory Rate 21 Blood Pressure 234/100 H 219/98 H Pulse Oximetry 98 Oxygen Delivery Method Room Air MDM - Weakness Lab Data 03/06/25 18:59 03/06/25 18:59 Labs: Lab Results 03/06/25 03/06/25 Range/Units 18:59 22:10 WBC 9.5 (4.5-11.0) X10^3/uL RBC 4.51 (4.5-5.9) X10^6/uL Hgb 13.8 (13.5-17.5) g/dL Hct 40.8 L (41-53) % MCV 90.4 (80-100) fL MCH 30.6 (26-34) PG MCHC 33.9 (30-36) % RDW 14.9 H (11.6-14.8) % Plt Count 220 (150-400) X10^3/uL Neut % (Auto) 70.3 (50-75) % Lymph % (Auto) 20.2 L (25-40) % Drew % (Auto) 6.6 (3-14) % Eos % (Auto) 2.1 (2-4) % Baso % (Auto) 0.8 (0-2) % Neut # (Auto) 6700 (4090-3547) /uL Lymph # (Auto) 1900 (9283-1804) /uL Drew # (Auto) 600 (0-900) /uL Eos # (Auto) 200 (0-450) /uL Baso # (Auto) 100 (0-100) /uL PT 11.0 (9.4-12.5) SECONDS INR 1.0 (0.9-1.3) APTT 21 L (25.1-36.5) SECONDS Sodium 136 L (137-145) mmol/L Potassium 5.1 (3.4-5.1) mmol/L Chloride 102 (98-107) mmol/L Carbon Dioxide 22 (22-32) mmol/L BUN 44 H (9-20) mg/dL Creatinine 2.11 H (0.66-1.25) mg/dL Estimated GFR 30 L (>60) mL/min BUN/Creatinine Ratio 20.9 (6-22) Glucose 135 H (70-99) mg/dL Calcium 8.6 (8.4-10.2) mg/dL Magnesium 2.2 (1.6-2.3) mg/dL Total Bilirubin 0.8 (0.2-1.3) mg/dL AST 42 (17-59) IU/L ALT 9 (<50) IU/L Alkaline Phosphatase 95 (38-126) U/L Total Creatine Kinase 91 (55-170) U/L Troponin I < 0.012 < 0.012 (0.01-0.034) ng/mL NT-Pro-B Natriuret Pep 270 (<450) pg/mL Total Protein 7.3 (6.3-8.2) g/dL Albumin 4.7 (3.5-5.0) g/dL Globulin 2.6 (1.7-4.1) g/dL Albumin/Globulin Ratio 1.8 (1.0-2.8) Lipase 96 (23-300) U/L Urine Dip Bedside Urine Glucose Negative Bedside Urine Bilirubin - Negative Bedside Urine Ketone - Negative Urine Specific [place] 1.015 Bedside Urine Occult Blood - Negative Bedside Urine pH 6.0 Bedside Urine Protein - Negative Bedside Urine Urobilinogen - Negative Bedside Urine Nitrite - Negative Bedside Urine Leukocytes - Negative Esterase Imaging Data Chest x-ray: Radiologist Impression: [address] [address] XRay Report Signed Patient: Irvin Quesada MR#: [id number] : 1940 Acct:[id number] Age/Sex: 85 / M Date of Service: 03/06/25 Loc: ED Accession Number: [id number] Procedure: XR chest 1V Ordering Provider: Andres Mackey D.O. PROCEDURE: XR CHEST 1V INDICATIONS: Chest Pain TECHNIQUE: One view of the chest was acquired. COMPARISON: [facility], CR, XR CHEST 1V, 02/01/2023, 3:45. FINDINGS: Surgical changes and devices: None. Lungs and pleura: Lungs are clear. No pleural effusions or pneumothorax. Mediastinum: Mediastinal contours appear normal. Heart size is normal. Bones and chest wall: No suspicious bony lesions. Overlying soft tissues appear unremarkable. IMPRESSION: No acute cardiopulmonary abnormality is seen. CT scan - head: Radiologist Impression: [address] [address] [address] Scan Report Signed Patient: Irvin Quesada MR#: [id number] : 1940 Acct:[id number] Age/Sex: 85 / M Date of Service: 03/06/25 Loc: ED Accession Number: [id number] Procedure: CT head/brain wo con Ordering Provider: Andres Mackey D.O. PROCEDURE: CT HEAD/BRAIN WO CON INDICATIONS: ams TECHNIQUE: Noncontrast 4.5 mm thick angled axial sections acquired from the foramen magnum to the vertex, with coronal and sagittal reformats. For radiation dose reduction, the following was used: automated exposure control, adjustment of mA and/or kV according to patient size. COMPARISON: None. FINDINGS: Image quality: Diagnostic. CSF spaces: Basal cisterns are patent. No extra-axial fluid collections. Ventricles are normal in size and shape. Brain: No midline shift. No intracranial mass effect or hemorrhage. No area of hypodensity in a large vascular distribution to suggest acute infarction. Periventricular hypodensity consistent with chronic microvascular ischemic change. Age-related parenchymal loss. Skull and face: Calvarium and visualized facial bones are intact, without suspicious lesions. Sinuses: Mucosal thickening at the ethmoid air cells. Paranasal sinuses are otherwise clear. Mastoids are clear. IMPRESSION: No acute intracranial pathology. ECG Data Interpretation: NSR HR 63 GA 174 QRS [address]-t wave change Change from 02/01/23 [facility] Narrative Medical decision making narrative: All lab work, vital signs, nurse triage note, medication list, previous ER visits, and all imaging studies reviewed. CT head showed no acute process. Chest x-ray showed no acute process. WBC 9 point hemoglobin 13.8 platelets 220 INR 1.0 sodium 136 potassium 5.1 by 1:02 a.m. CO2 22 BUN 44 creatinine 2.11 glucose 135 troponin less than 0.012 x2. BNP 270. Patient given lactated ringer bolus x2. Patient feels much better on re-examination. Differential diagnosis CVA hemorrhage STEMI NSTEMI orthostatic hypotension. Discharge Plan Departure Patient Disposition: Home Clinical Impression: JAIMIE (acute kidney injury) Instructions: Acute Kidney Injury Activity Restrictions/Additional Instructions: Return with new or worsening symptoms. Keep hydrated. Follow up PCP next week if no improvement in symptoms. Prescriptions: No Action indomethacin 50 mg capsule 100 mg PO Patient Comments: Take as needed for gout pain polyethylene glycol 3350 17 gram/dose powder PO Patient Comments: Prescribed to deal with a restriction. Was inspected during a colonoscopy and found to be noncancerous. metoprolol succinate 50 mg capsule,sprinkle,ER 24hr 50 mg PO DAILY Patient Comments: Temporarily stopped until hernia is corrected allopurinol 100 mg tablet 100 mg PO DAILY atorvastatin 20 mg tablet 20 mg PO DAILY Fiber (psyllium husk-sugar) 3.4 gram/7 gram powder 1 tbsp PO BID Qty: 822 0RF celecoxib [Celebrex] 200 mg capsule 200 mg PO BID Qty: 20 0RF acetaminophen [Tylenol] 325 mg capsule 650 mg PO QID PRN (Reason: pain) Qty: 60 0RF lisinopril 20 mg Tablet 20 mg PO DAILY Qty: 30 0RF Referrals: Uvaldo Katz MD [Primary Care Provider, Family Practice] Stand Alone Forms: Patient Portal/API
--- NOTE | 2025-03-06 19:52 | DI.CT.S_ITS ---
PROCEDURE: CT HEAD/BRAIN WO CON INDICATIONS: ams TECHNIQUE: Noncontrast 4.5 mm thick angled axial sections acquired from the foramen magnum to the vertex, with coronal and sagittal reformats. For radiation dose reduction, the following was used: automated exposure control, adjustment of mA and/or kV according to patient size. COMPARISON: None. FINDINGS: Image quality: Diagnostic. CSF spaces: Basal cisterns are patent. No extra-axial fluid collections. Ventricles are normal in size and shape. Brain: No midline shift. No intracranial mass effect or hemorrhage. No area of hypodensity in a large vascular distribution to suggest acute infarction. Periventricular hypodensity consistent with chronic microvascular ischemic change. Age-related parenchymal loss. Skull and face: Calvarium and visualized facial bones are intact, without suspicious lesions. Sinuses: Mucosal thickening at the ethmoid air cells. Paranasal sinuses are otherwise clear. Mastoids are clear. IMPRESSION: No acute intracranial pathology. Dictated by: Hansel Peguero M.D. on 03/06/2025 at 20:28 Approved by: Hansel Peguero M.D. on 03/06/2025 at 20:30
[2025-03-06] MEDS: LACTATED RINGERS 1,000 ML 1000 ML IV ×2 (20:18→22:21)
[2025-03-06 22:45] LABS: Troponin I < 0.012 ng/mL (0.01-0.034)
== END 2025-03-06 23:11 | disposition home or self-care (01) ==
PROVIDERS: Emergency Provider Family Medicine; PCP Family Medicine
DX: N17.9 Acute kidney failure, unspecified (principal); R07.9 Chest pain, unspecified; R41.82 Altered mental status, unspecified
CPT/HCPCS: 36415; 70450; 71045; 80053; 81003; 82550; 83690; 83735; 83880; 84484; 85025; 85610; 85730; 93005; 96360; 96361; 99284; J7120